=== PATIENT | male | born 1970 | race Caucasian/White ===

== ENCOUNTER 2021-06-26 18:58 | Inpatient (IN) | payer OTHER, SELFPAY ==
[2021-06-26 19:01] VITALS: BP 135/92; PULSE 118; RESP 18; TEMP 37.6; O2SAT 95; BMI 34.9
--- NOTE | 2021-06-26 19:16 | ED_ITS ---
HPI - Psych General Chief Complaint: Psychiatric Symptoms Stated Complaint: crisis Time Seen by Provider: 06/26/21 19:16 Source: patient Mode of arrival: ambulatory Limitations: no limitations History of Present Illness HPI Narrative: Patient came from home with increased depression and anxious denies any SI or HI taking his medication regularly has not seen a psychiatrist lately was seen in the community by LONNY advised inpatient psych admission Related Data Home Medications Medication Instructions Recorded Confirmed levothyroxine 125 mcg tablet 1 tab PO DAILY 06/26/21 06/26/21 lorazepam 2 mg tablet 1 tab PO TID PRN 06/26/21 06/26/21 methylphenidate HCl 10 mg tablet 1 tab PO BID 06/26/21 06/26/21 risperidone 2 mg tablet 1 tab PO BEDTIME 06/26/21 06/26/21 sertraline 25 mg tablet 1 tab PO DAILY 06/26/21 06/26/21 trazodone 50 mg tablet 1 tab PO BEDTIME 06/26/21 06/26/21 Allergies Allergy/AdvReac Type Severity Reaction Status Date / Time No Known Allergies Allergy Verified 06/26/21 19:01 Review of Systems Review of Systems: Yes all other systems are reviewed and are negative [facility] Past Medical History Medical History Anxiety Depression Social History Social History Advance Directives: No Physical Exam Vital Signs: Vital Signs: Last Vital Signs Temp 99.7 F 06/26/21 19:01 Pulse 118 H 06/26/21 19:01 Resp 18 06/26/21 19:01 BP 135/92 H 06/26/21 19:01 Pulse Ox 95 06/26/21 19:01 BMI result Body Mass Index 34.9 Appearance: Alert. Oriented X3. No acute distress. Eyes: PERRLA, No Nystagmus ENT: Pharynx normal. Oral Mucosa moist Neck: Normal inspection. Neck supple. CVS: Normal heart rate and rhythm. Pulses normal. Respiratory: No respiratory distress. Equal air entry bilateral, no wheezing/rales/rhonchi Abdomen: Soft and nontender. Bowel sounds are present, no mass palpable, no CVA tenderness Skin: Skin warm and dry. Normal skin color. Normal skin turgor. Extremities: No lower extremity edema. No calf tenderness Psych: Anxious feel depressed no hallucination or delusion judgment fair feels foggy Neuro: Oriented X 3. No motor deficit. No sensory deficit.No cerebellar signs , cranial nerves II-XII intact MDM - Psych Differential Diagnosis Differential diagnosis: Likely depression Lab Data Attestation: I reviewed the patient's lab results. Result diagrams: 06/26/21 19:47 06/26/21 19:47 Labs: Lab Results 06/26/21 06/26/21 06/26/21 Range/Units 19:24 19:39 19:39 WBC (4.8-10.8) X10*3/uL RBC (4.60-5.80) X10*6/uL Hgb (14.0-18.0) g/dl Hct (42.0-52.0) % MCV (80.0-98.0) fL MCH (27.0-33.0) pg MCHC (31.0-36.0) g/dl RDW (11.0-16.0) % Plt Count (160-400) X10*3/uL MPV (9.4-12.4) fL Immature Gran % (Auto) (0.0-0.4) % Neut % (Auto) (45-73) % Lymph % (Auto) (20-40) % [place] % (Auto) (2-11) % Eos % (Auto) (0-4) % Baso % (Auto) (0-2) % Lymph # (Auto) (1.2-4.9) X10*3/uL [place] # (Auto) (0.1-1.2) X10*3/uL Eos # (Auto) (0.0-0.4) X10*3/uL Baso # (Auto) (0.0-0.2) X10*3/uL Abs Immat Gran (auto) (0.00-0.03) X10*3/uL Absolute Neuts (auto) (2.0-8.3) x10*3/uL Absolute Nucleated RBC (0.0-0.012) X10*3/uL Nucleated RBC % (auto) (0.0-0.2) /100WBC Sodium (135-145) mmol/L Potassium (3.3-5.1) mmol/L Chloride (96-108) mmol/L Carbon Dioxide (22-29) mmol/L Anion Gap (12-20) BUN (9-16) mg/dL Creatinine (0.5-1.4) mg/dL Estim Creat Clear Calc Estimated GFR Random Glucose (60-115) mg/dL Calcium (8.4-10.2) mg/dL Urine Color YELLOW Urine Appearance HAZY Urine pH 6.0 (5.0-8.0) Ur Specific [place] 1.025 (1.005-1.025) Urine Protein TRACE (NEG-TRACE) MG/DL Urine Glucose (UA) NEG (NEG) MG/DL Urine Ketones NEG (NEG) MG/DL Urine Blood TRACE (NEG) Urine Nitrite NEG (NEG) Ur Leukocyte Esterase NEG (NEG) Urine RBC 1-4 (0) /HPF Urine WBC 0-2 (0-4) /HPF Ur Squamous Epith Cells TRACE /LPF Urine Bacteria NONE /LPF Hyaline Casts 0-2 /LPF Urine Mucus 4+ /LPF Urine Opiates Screen Not Detected (Not Detect) Urine Fentanyl Screen Not Detected (Not Detect) Ur Barbiturates Screen Not Detected (Not Detect) Ur Phencyclidine Scrn Not Detected (Not Detect) Ur Amphetamines Screen Not Detected (Not Detect) U Benzodiazepines Scrn Not Detected (Not Detect) Urine Cocaine Screen Not Detected (Not Detect) U Marijuana (THC) Screen Not Detected (Not Detect) Ethyl Alcohol mg/dL COVID-19 (BINTA) Negative (Negative) COVID-19 Clin Com See Note 06/26/21 06/26/21 06/26/21 Range/Units 19:47 19:47 19:48 WBC 9.9 (4.8-10.8) X10*3/uL RBC 5.58 (4.60-5.80) X10*6/uL Hgb 16.7 (14.0-18.0) g/dl Hct 47.4 (42.0-52.0) % MCV 84.9 (80.0-98.0) fL MCH 29.9 (27.0-33.0) pg MCHC 35.2 (31.0-36.0) g/dl RDW 12.3 (11.0-16.0) % Plt Count 272 (160-400) X10*3/uL MPV 10.6 (9.4-12.4) fL Immature Gran % (Auto) 0.8 H (0.0-0.4) % Neut % (Auto) 63.2 (45-73) % Lymph % (Auto) 24.6 (20-40) % [place] % (Auto) 9.6 (2-11) % Eos % (Auto) 1.3 (0-4) % Baso % (Auto) 0.5 (0-2) % Lymph # (Auto) 2.4 (1.2-4.9) X10*3/uL [place] # (Auto) 1.0 (0.1-1.2) X10*3/uL Eos # (Auto) 0.1 (0.0-0.4) X10*3/uL Baso # (Auto) 0.1 (0.0-0.2) X10*3/uL Abs Immat Gran (auto) 0.08 H (0.00-0.03) X10*3/uL Absolute Neuts (auto) 6.3 (2.0-8.3) x10*3/uL Absolute Nucleated RBC 0.000 (0.0-0.012) X10*3/uL Nucleated RBC % (auto) 0.0 (0.0-0.2) /100WBC Sodium 137 (135-145) mmol/L Potassium 4.2 (3.3-5.1) mmol/L Chloride 102 (96-108) mmol/L Carbon Dioxide 25 (22-29) mmol/L Anion Gap 14 (12-20) BUN 12 (9-16) mg/dL Creatinine 1.15 (0.5-1.4) mg/dL Estim Creat Clear Calc 87.9 Estimated GFR > 60 Random Glucose 132 H (60-115) mg/dL Calcium 10.7 H (8.4-10.2) mg/dL Urine Color Urine Appearance Urine pH (5.0-8.0) Ur Specific [place] (1.005-1.025) Urine Protein (NEG-TRACE) MG/DL Urine Glucose (UA) (NEG) MG/DL Urine Ketones (NEG) MG/DL Urine Blood (NEG) Urine Nitrite (NEG) Ur Leukocyte Esterase (NEG) Urine RBC (0) /HPF Urine WBC (0-4) /HPF Ur Squamous Epith Cells /LPF Urine Bacteria /LPF Hyaline Casts /LPF Urine Mucus /LPF Urine Opiates Screen (Not Detect) Urine Fentanyl Screen (Not Detect) Ur Barbiturates Screen (Not Detect) Ur Phencyclidine Scrn (Not Detect) Ur Amphetamines Screen (Not Detect) U Benzodiazepines Scrn (Not Detect) Urine Cocaine Screen (Not Detect) U Marijuana (THC) Screen (Not Detect) Ethyl Alcohol < 10 mg/dL COVID-19 (BINTA) (Negative) COVID-19 Clin Com Discharge Plan Discharge Clinical Impression: Depression, Acute anxiety Patient Disposition: Still a Patient Prescriptions: No Action methylphenidate HCl 10 mg tablet 1 tab PO BID 0RF risperidone 2 mg tablet 1 tab PO BEDTIME 0RF lorazepam 2 mg tablet 1 tab PO TID PRN (Reason: anxiety) 0RF levothyroxine 125 mcg tablet 1 tab PO DAILY 0RF sertraline 25 mg tablet 1 tab PO DAILY 0RF trazodone 50 mg tablet 1 tab PO BEDTIME 0RF
--- NOTE | 2021-06-26 19:19 | MHC.CARE ---
Pt was evaluated by N in the community prior to arrival to the hospital and is a voluntary in psychiatric bedsearch.
[2021-06-26 19:44] LABS: COVID-19 Test Negative (Negative)
[2021-06-26 19:53] LABS: MANUAL DIFF FLAG NO
[2021-06-26 19:55] LABS: Basophils Absolute Auto 0.1 X10*3/uL (0.0-0.2); Basophils Percent Auto 0.5 % (0-2); Eosinophils Absolute Auto 0.1 X10*3/uL (0.0-0.4); Eosinophils Percent Auto 1.3 % (0-4); Hematocrit 47.4 % (42.0-52.0); Hemoglobin 16.7 g/dl (14.0-18.0); Imm Gran Abs Auto 0.08 X10*3/uL (0.00-0.03); Imm Gran Pct Auto 0.8 % (0.0-0.4); Lymphocytes Absolute Auto 2.4 X10*3/uL (1.2-4.9); Lymphocytes Percent Auto 24.6 % (20-40); Mean Corpuscular HGB Conc 35.2 g/dl (31.0-36.0); Mean Corpuscular Hemoglobin 29.9 pg (27.0-33.0); Mean Corpuscular Volume 84.9 fL (80.0-98.0); Mean Platelet Volume 10.6 fL (9.4-12.4); Monocytes Percent Auto 9.6 % (2-11); Neutrophils Absolute Auto 6.3 x10*3/uL (2.0-8.3); Neutrophils Percent Auto 63.2 % (45-73); Platelet Count 272 X10*3/uL (160-400); Red Blood Count 5.58 X10*6/uL (4.60-5.80); Red Cell Distribution Width 12.3 % (11.0-16.0); White Blood Count 9.9 X10*3/uL (4.8-10.8)
[2021-06-26 19:56] LABS: Appearance Urine HAZY; Color Urine YELLOW; Glucose Urine UA NEG (NEG); Leukocyte Esterase Urine NEG (NEG); Nitrite Urine NEG (NEG); Specific Gravity - Urine 1.025 (1.005-1.025); Urine Blood TRACE (NEG); Urine Ketones NEG (NEG); Urine Protein TRACE MG/DL (NEG-TRACE)
[2021-06-26 20:06] LABS: Ethanol < 10 mg/dL
[2021-06-26 20:09] LABS: Amphetamine Screen Urine Not Detected (Not Detect); Barbiturates, Urine Not Detected (Not Detect); Benzodiazepines Screen Urine Not Detected (Not Detect); Cannabinoid Screen Urine Not Detected (Not Detect); Cocaine Screen Urine Not Detected (Not Detect); Fentanyl, urine Not Detected (Not Detect); Opiate Screen Urine Not Detected (Not Detect); Phencyclidine Screen Urine Not Detected (Not Detect)
[2021-06-26 20:19] LABS: Hyaline Casts Urine 0-2 /LPF; Mucus Urine 4+ /LPF; Squamous Epithelial Cell Urine TRACE /LPF; WBC Urine 0-2 /HPF (0-4)
[2021-06-26 20:26] LABS: Anion Gap 14 (12-20); Blood Urea Nitrogen 12 mg/dL (9-16); Calcium 10.7 mg/dL (8.4-10.2); Carbon Dioxide 25 mmol/L (22-29); Chloride 102 mmol/L (96-108); Creatinine Clr Calc Pharmacy 87.9; Estimated Glomerular Filt Rate > 60; Glucose Random 132 mg/dL (60-115); Potassium 4.2 mmol/L (3.3-5.1); Sodium 137 mmol/L (135-145)
[2021-06-26] MEDS: risperiDONE 2 MG TABLET PO (21:59)
[2021-06-26] MEDS: traZODone HCL 50 MG TABLET PO (22:19)
--- NOTE | 2021-06-27 | ECG_ITS ---
Test Reason : MEDICAL CLEARANCE Blood Pressure : / mmHG Vent. Rate : 087 BPM Atrial Rate : 087 BPM P-R Int : 168 ms QRS Dur : 076 ms QT Int : 344 ms P-R-T Axes : 040 054 046 degrees QTc Int : 413 ms Normal sinus rhythm Normal ECG When compared with ECG of 20-JUL-2019 08:33, Nonspecific T wave abnormality now evident in Anterior leads Referred By: Cecilia Whitt Electronically Signed By:Radu Mitchell
[2021-06-27 03:32] VITALS: BP 140/100; PULSE 116; RESP 20; TEMP 36.3; O2SAT 95
[2021-06-27] MEDS: Levothyroxine Sodium 125 MCG TABLET PO (06:04)
[2021-06-27] MEDS: LORazepam 1 MG TABLET 2 MG PO ×3 (06:05→20:47)
--- NOTE | 2021-06-27 06:57 | PC.NURSE ---
Patient slept through the night, no distress observed/reported, behavior quiet, non concerning, medication compliant, disposition per [facility] is voluntary Bed Search, will continue to monitor.
--- NOTE | 2021-06-27 07:14 | PC.NURSE ---
patient appears to remain asleep respirations are even and unlabored, patient appears in no distress
[2021-06-27] MEDS: Sertraline HCL 25 MG TABLET PO (08:05)
[2021-06-27] MEDS: Methylphenidate HCl 10 MG TABLET PO ×2 (08:05→13:37)
[2021-06-27 08:44] VITALS: BP 147/87; PULSE 117; TEMP 37.2; O2SAT 95
[2021-06-27] MEDS: hydrOXYzine HCL 50 MG TABLET PO (09:55)
[2021-06-27 19:24] VITALS: BP 127/84; PULSE 111; RESP 18; TEMP 36.2; O2SAT 94
[2021-06-27 19:35] VITALS: BP 121/80; PULSE 115; RESP 16; TEMP 36.7; O2SAT 94
[2021-06-27] MEDS: risperiDONE 2 MG TABLET PO (20:46)
[2021-06-27] MEDS: traZODone HCL 50 MG TABLET PO (20:46)
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
[2021-06-28] MEDS: Levothyroxine Sodium 125 MCG TABLET PO (06:36)
[2021-06-28 08:13] VITALS: BP 138/93; PULSE 92; RESP 17; TEMP 36.8; O2SAT 94
[2021-06-28 09:02] LABS: Alanine Aminotransferase 20 U/L (0-40); Albumin Level 4.3 g/dL (3.5-5.0); Alkaline Phosphatase 66 U/L (39-117); Anion Gap 13 (12-20); Aspartate Amino Transferase 17 U/L (5-37); Bilirubin Total 0.6 mg/dL (0.0-1.0); Blood Urea Nitrogen 11 mg/dL (9-16); Carbon Dioxide 26 mmol/L (22-29); Chloride 103 mmol/L (96-108); Cholesterol 208 mg/dL; Creatinine Clr Calc Pharmacy 92.8; Estimated Glomerular Filt Rate > 60; Glucose Fasting 117 mg/dL (60-99); HDL Cholesterol 34 mg/dL; LDL Cholesterol Calculated 140 mg/dl; Potassium 4.4 mmol/L (3.3-5.1); Sodium 138 mmol/L (135-145); Total Protein 6.7 g/dL (6.5-8.0); Triglycerides 173 mg/dL
[2021-06-28 09:11] LABS: Estimated Average Glucose 123 mg/dL; Hemoglobin A1c % 5.9 %
[2021-06-28 09:23] LABS: Thyroid Stimulating Hormone 0.86 uIU/mL (0.32-4.0)
[2021-06-28 09:34] LABS: Folate 14.3 ng/mL (> or = 4.0); Vitamin B12 252 pg/mL (200-900)
[2021-06-28 09:49] LABS: Calcium 9.7 mg/dL (8.4-10.2)
[2021-06-28] MEDS: Sertraline HCL 25 MG TABLET PO (10:45)
[2021-06-28] MEDS: Methylphenidate HCl 10 MG TABLET PO ×2 (10:45→14:04)
[2021-06-28] MEDS: LORazepam 1 MG TABLET 2 MG PO (10:48)
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
[2021-06-28] MEDS: Venlafaxine HCl ER 37.5 MG CAP.ER.24H PO (16:02)
[2021-06-28 20:06] VITALS: BP 125/76; PULSE 105; RESP 18; TEMP 36.2; O2SAT 95
[2021-06-28] MEDS: traZODone HCL 50 MG TABLET PO (20:33)
[2021-06-28] MEDS: risperiDONE 2 MG TABLET PO (20:33)
[2021-06-28] MEDS: LORazepam 1 MG TABLET PO (20:33)
[2021-06-29] MEDS: Levothyroxine Sodium 125 MCG TABLET PO (06:40)
[2021-06-29 08:04] VITALS: BP 141/80; PULSE 84; RESP 16; TEMP 36.5; O2SAT 93
[2021-06-29] MEDS: LORazepam 1 MG TABLET PO ×3 (08:06→20:30)
[2021-06-29] MEDS: Venlafaxine HCl ER 37.5 MG CAP.ER.24H PO (08:06)
[2021-06-29 11:19] VITALS: BMI 33.5
--- NOTE | 2021-06-29 12:55 | HO.PSYCHPN ---
Subjective Subjective Date of Service: 06/29/21 Reason For Visit: SI Subjective Notes: Conditional Voluntary Interim History: Pt reports feeling hopeless, numbed, anxious. Continues to report feeling inside. He reports he can't go to groups as he is too anxious. He reports passive SI but denies any plan or intent to hurt himself. He denies VH/AH. He is so far tolerating decrease on ativan. no withdrawal symptoms. Pt encouraged to attend some groups. He reports poor appetite. Medication Compliance: Yes Side effects from medications: No Attending Groups: No Review of Systems Review of Systems Yes all other systems are reviewed and are negative Constitutional: Reports difficulty sleeping Eyes: Reports no additional eye complaints Cardiovascular: Denies chest pain, Denies chest pain at rest, Denies rapid heart rate, Denies lightheadedness and Denies dyspnea Respiratory: Denies cough and Denies dyspnea Gastrointestinal: Denies constipation, Denies GI cramping and Denies diarrhea Genitourinary: Reports change in libido Psychiatric: Reports change in libido Endocrine: Reports change in libido Mental Status Exam Mental Status Exam Narrative: Appearance: casually groomed, fair hygiene in NAD Behavior:cooperative psychomotor:no overt retardation or agitation noted Speech:clear, normal rate/rhythm/volume, spontaneous Thought process: repetitive at times, mostly linear Thought content:no signs of psychosis, hopeless/helpless/severe anhedonia. Mood: numbed Affect: blunted SI:passive HI:none VH/AH:none Delusions:none Insight/judgment:fair x 2. Memory/cog: alert, oriented x 3. not formally tested. Diagnostics Vital Signs (24Hr): Vital Signs - 24 hr 07/02/21 07:55 07/02/21 20:23 Temperature 97.2 F 97.5 F Pulse Rate 72 100 Respiratory Rate 18 18 Blood Pressure 140/97 H 113/63 Pulse Oximetry 93 95 BMI result Body Mass Index 33.5 Labs Results: 06/26/21 19:47 06/28/21 08:19 Medications Medications Current Medications Acetaminophen (Acetaminophen 325 Mg Tablet) 650 mg PO Q6H PRN PRN Reason: Headache/Pain Mild Scale (1-3) Al Hydroxide/Mg Hydroxide (Magnesium Hydrox/Alum Hydrox 30 Ml Oral.Susp) 30 ml PO Q6H PRN PRN Reason: Heartburn/Nausea Hydroxyzine HCl (Hydroxyzine Hcl 25 Mg Tablet) 25 mg PO Q6H PRN PRN Reason: Anxiety Last Admin: 07/01/21 20:03 Dose: 25 mg Documented by: Levothyroxine Sodium (Levothyroxine Sodium 125 Mcg Tablet) 125 mcg PO DAILY@0600 [facility] Last Admin: 07/02/21 08:07 Dose: 125 mcg Documented by: Lorazepam (Lorazepam 1 Mg Tablet) 1 mg PO TID [facility] Last Admin: 07/02/21 20:20 Dose: 1 mg Documented by: Magnesium Hydroxide (Milk Of Magnesia 30 Ml Oral.Susp) 30 ml PO DAILY PRN PRN Reason: Constipation Propranolol HCl (Propranolol Hcl 10 Mg Tablet) 10 mg PO BID [facility]; Protocol Last Admin: 07/02/21 20:21 Dose: 10 mg Documented by: Risperidone (Risperidone 2 Mg Tablet) 2 mg PO BEDTIME [facility] Last Admin: 07/02/21 20:20 Dose: 2 mg Documented by: Trazodone HCl (Trazodone Hcl 50 Mg Tablet) 50 mg PO BEDTIME PRN PRN Reason: Insomnia Trazodone HCl (Trazodone Hcl 100 Mg Tablet) 100 mg PO BEDTIME [facility] Last Admin: 07/02/21 20:20 Dose: 100 mg Documented by: Venlafaxine HCl (Venlafaxine Hcl Er 75 Mg Cap.Er.24h) 75 mg PO DAILY [facility] Last Admin: 07/02/21 08:06 Dose: 75 mg Documented by: Allergies Allergies Allergy/AdvReac Type Severity Reaction Status Date / Time No Known Allergies Allergy Verified 06/26/21 19:01 Assessment & Plan Assessment & Plan (1) Bipolar 1 disorder, depressed, moderate: Status: Acute Code(s): F31.32 - Bipolar disorder, current episode depressed, moderate Assessment and Plan: Mr. Tomas is a 50 year-old male with hx of Bipolar Disorder type 1 admitted due to feeling of numbness, depressed mood, anhedonia, anxious mood. He has hx of ECT. He reports feeling this way for about 2 years, worsening in last few months. Pt reports being on same regimen for about two years including ativan 2mg po TID, ritalin 10mg po BID, sertraline 25mg po qhs, risperidone 2mg po qhs. We discussed risks, benefits and alternative treatment options. PLAN 1. Admit to M3, 15 mins check safety 2. Decrease ativan to 1mg po TID, d/c sertraline (won't increase dose as higher doses can cause emotional blunting), start effexor 37.5mg po daily. Will keep risperidone and ritaline for now. May consider ECT again 3. Obtain collateral information 4. Aftercare planning. I spent minutes with the patient and/or on the patient floor today, greater than?50% of which was spent counseling/coordinating care. Reason for contiued inpatient stay Substantial Risk for: harm to self and inability to function
[2021-06-29] MEDS: traZODone HCL 50 MG TABLET PO (20:30)
[2021-06-29] MEDS: risperiDONE 2 MG TABLET PO (20:30)
[2021-06-29 20:31] VITALS: BP 136/87; PULSE 92; RESP 17; TEMP 36.4; O2SAT 95
[2021-06-30] MEDS: Levothyroxine Sodium 125 MCG TABLET PO (06:39)
[2021-06-30] MEDS: LORazepam 1 MG TABLET PO ×3 (08:22→20:09)
[2021-06-30] MEDS: Venlafaxine HCl ER 75 MG CAP.ER.24H PO (08:22)
[2021-06-30] MEDS: hydrOXYzine HCL 25 MG TABLET PO (08:28)
[2021-06-30 08:33] VITALS: BP 147/93; PULSE 88; RESP 16; TEMP 36.2; O2SAT 99
--- NOTE | 2021-06-30 15:58 | P.PNPSI_ITS ---
Subjective Subjective Date of Service: 06/30/21 Reason For Visit: SI Subjective Notes: Conditional Voluntary Interim History: Pt reports no change in mood: feeling hopeless, numbed, anxious, poor concentration. Continues to report feeling inside. He reports he can't go to groups as he is too anxious. He reports passive SI but denies any plan or intent to hurt himself. He denies VH/AH. He is so far tolerating decrease on ativan. no withdrawal symptoms. Pt encouraged to attend some groups. He reports poor appetite. We discussed increasing venlafaxine to 75mg po daily. Medication Compliance: Yes Side effects from medications: No Review of Systems Review of Systems Yes all other systems are reviewed and are negative Constitutional: Reports difficulty sleeping Eyes: Reports no additional eye complaints Cardiovascular: Denies chest pain, Denies chest pain at rest, Denies rapid heart rate, Denies lightheadedness and Denies dyspnea Respiratory: Denies cough and Denies dyspnea Gastrointestinal: Denies constipation, Denies GI cramping and Denies diarrhea Genitourinary: Reports change in libido Psychiatric: Reports change in libido Endocrine: Reports change in libido Mental Status Exam Mental Status Exam Narrative: Appearance: casually groomed, fair hygiene in NAD Behavior:cooperative psychomotor:no overt retardation or agitation noted Speech:clear, normal rate/rhythm/volume, spontaneous Thought process: repetitive at times, mostly linear Thought content:no signs of psychosis, hopeless/helpless/severe anhedonia. Mood: numbed Affect: blunted SI:passive HI:none VH/AH:none Delusions:none Insight/judgment:fair x 2. Memory/cog: alert, oriented x 3. not formally tested. Diagnostics Vital Signs (24Hr): Vital Signs - 24 hr 07/02/21 07:55 07/02/21 20:23 Temperature 97.2 F 97.5 F Pulse Rate 72 100 Respiratory Rate 18 18 Blood Pressure 140/97 H 113/63 Pulse Oximetry 93 95 BMI result Body Mass Index 33.5 Labs Results: 06/26/21 19:47 06/28/21 08:19 Medications Medications Current Medications Acetaminophen (Acetaminophen 325 Mg Tablet) 650 mg PO Q6H PRN PRN Reason: Headache/Pain Mild Scale (1-3) Al Hydroxide/Mg Hydroxide (Magnesium Hydrox/Alum Hydrox 30 Ml Oral.Susp) 30 ml PO Q6H PRN PRN Reason: Heartburn/Nausea Hydroxyzine HCl (Hydroxyzine Hcl 25 Mg Tablet) 25 mg PO Q6H PRN PRN Reason: Anxiety Last Admin: 07/01/21 20:03 Dose: 25 mg Documented by: Levothyroxine Sodium (Levothyroxine Sodium 125 Mcg Tablet) 125 mcg PO DAILY@0600 [facility] Last Admin: 07/02/21 08:07 Dose: 125 mcg Documented by: Lorazepam (Lorazepam 1 Mg Tablet) 1 mg PO TID [facility] Last Admin: 07/02/21 20:20 Dose: 1 mg Documented by: Magnesium Hydroxide (Milk Of Magnesia 30 Ml Oral.Susp) 30 ml PO DAILY PRN PRN Reason: Constipation Propranolol HCl (Propranolol Hcl 10 Mg Tablet) 10 mg PO BID [facility]; Protocol Last Admin: 07/02/21 20:21 Dose: 10 mg Documented by: Risperidone (Risperidone 2 Mg Tablet) 2 mg PO BEDTIME [facility] Last Admin: 07/02/21 20:20 Dose: 2 mg Documented by: Trazodone HCl (Trazodone Hcl 50 Mg Tablet) 50 mg PO BEDTIME PRN PRN Reason: Insomnia Trazodone HCl (Trazodone Hcl 100 Mg Tablet) 100 mg PO BEDTIME [facility] Last Admin: 07/02/21 20:20 Dose: 100 mg Documented by: Venlafaxine HCl (Venlafaxine Hcl Er 75 Mg Cap.Er.24h) 75 mg PO DAILY [facility] Last Admin: 07/02/21 08:06 Dose: 75 mg Documented by: Allergies Allergies Allergy/AdvReac Type Severity Reaction Status Date / Time No Known Allergies Allergy Verified 06/26/21 19:01 Assessment & Plan Assessment & Plan (1) Bipolar 1 disorder, depressed, moderate: Status: Acute Code(s): F31.32 - Bipolar disorder, current episode depressed, moderate Assessment and Plan: Mr. Tomas is a 50 year-old male with hx of Bipolar Disorder type 1 admitted due to feeling of numbness, depressed mood, anhedonia, anxious mood. He has hx of ECT. He reports feeling this way for about 2 years, worsening in last few months. Pt reports being on same regimen for about two years including ativan 2mg po TID, ritalin 10mg po BID, sertraline 25mg po qhs, risperidone 2mg po qhs. We discussed risks, benefits and alternative treatment options. PLAN 1. Admit to M3, 15 mins check safety 2. Decrease ativan to 1mg po TID, d/c sertraline (won't increase dose as higher doses can cause emotional blunting), increase effexor 75mg po daily. Will keep risperidone and d/c ritalin for now. May consider ECT again 3. Obtain collateral information 4. Aftercare planning. I spent minutes with the patient and/or on the patient floor today, greater than?50% of which was spent counseling/coordinating care. Reason for contiued inpatient stay Substantial Risk for: harm to self and inability to function
[2021-06-30 18:00] VITALS: BP 131/87; PULSE 107; RESP 18; TEMP 36.1; O2SAT 93
[2021-06-30] MEDS: traZODone HCL 100 MG TABLET PO (20:09)
[2021-06-30] MEDS: risperiDONE 2 MG TABLET PO (20:09)
[2021-07-01] MEDS: LORazepam 1 MG TABLET PO ×3 (08:22→20:03)
[2021-07-01] MEDS: Venlafaxine HCl ER 75 MG CAP.ER.24H PO (08:23)
[2021-07-01] MEDS: Levothyroxine Sodium 125 MCG TABLET PO (08:23)
[2021-07-01 08:58] VITALS: BP 141/94; PULSE 89; RESP 18; TEMP 36.6; O2SAT 93
--- NOTE | 2021-07-01 08:59 | HO.PSYCHPN ---
Subjective Subjective Date of Service: 07/01/21 Reason For Visit: SI Subjective Notes: Conditional Voluntary Interim History: Pt reports feeling anxious, not sure if more than before or the same. He reports feeling need to pace, not able to stay in groups. He continues to report feeling hopeless, numbed, poor concentration. Continues to report feeling inside. He reports he can't go to groups as he is too anxious. He reports passive SI but denies any plan or intent to hurt himself. He denies VH/AH. He is so far tolerating decrease on ativan. no withdrawal symptoms. Pt encouraged to attend some groups. He reports poor appetite. We discussed adding propanolol for anxious mood. Review of Systems Review of Systems Yes all other systems are reviewed and are negative Constitutional: Reports difficulty sleeping Eyes: Reports no additional eye complaints Cardiovascular: Denies chest pain, Denies chest pain at rest, Denies rapid heart rate, Denies lightheadedness and Denies dyspnea Respiratory: Denies cough and Denies dyspnea Gastrointestinal: Denies constipation, Denies GI cramping and Denies diarrhea Genitourinary: Reports change in libido Psychiatric: Reports change in libido Endocrine: Reports change in libido Mental Status Exam Mental Status Exam Narrative: Appearance: casually groomed, fair hygiene in NAD Behavior:cooperative psychomotor:no overt retardation or agitation noted Speech:clear, normal rate/rhythm/volume, spontaneous Thought process: repetitive at times, mostly linear Thought content:no signs of psychosis, hopeless/helpless/severe anhedonia. Mood: numbed Affect: blunted SI:passive HI:none VH/AH:none Delusions:none Insight/judgment:fair x 2. Memory/cog: alert, oriented x 3. not formally tested. Diagnostics Vital Signs (24Hr): Vital Signs - 24 hr 07/02/21 07:55 07/02/21 20:23 Temperature 97.2 F 97.5 F Pulse Rate 72 100 Respiratory Rate 18 18 Blood Pressure 140/97 H 113/63 Pulse Oximetry 93 95 BMI result Body Mass Index 33.5 Labs Results: 06/26/21 19:47 06/28/21 08:19 Medications Medications Current Medications Acetaminophen (Acetaminophen 325 Mg Tablet) 650 mg PO Q6H PRN PRN Reason: Headache/Pain Mild Scale (1-3) Al Hydroxide/Mg Hydroxide (Magnesium Hydrox/Alum Hydrox 30 Ml Oral.Susp) 30 ml PO Q6H PRN PRN Reason: Heartburn/Nausea Hydroxyzine HCl (Hydroxyzine Hcl 25 Mg Tablet) 25 mg PO Q6H PRN PRN Reason: Anxiety Last Admin: 07/01/21 20:03 Dose: 25 mg Documented by: Levothyroxine Sodium (Levothyroxine Sodium 125 Mcg Tablet) 125 mcg PO DAILY@0600 [facility] Last Admin: 07/02/21 08:07 Dose: 125 mcg Documented by: Lorazepam (Lorazepam 1 Mg Tablet) 1 mg PO TID [facility] Last Admin: 07/02/21 20:20 Dose: 1 mg Documented by: Magnesium Hydroxide (Milk Of Magnesia 30 Ml Oral.Susp) 30 ml PO DAILY PRN PRN Reason: Constipation Propranolol HCl (Propranolol Hcl 10 Mg Tablet) 10 mg PO BID [facility]; Protocol Last Admin: 07/02/21 20:21 Dose: 10 mg Documented by: Risperidone (Risperidone 2 Mg Tablet) 2 mg PO BEDTIME [facility] Last Admin: 07/02/21 20:20 Dose: 2 mg Documented by: Trazodone HCl (Trazodone Hcl 50 Mg Tablet) 50 mg PO BEDTIME PRN PRN Reason: Insomnia Trazodone HCl (Trazodone Hcl 100 Mg Tablet) 100 mg PO BEDTIME [facility] Last Admin: 07/02/21 20:20 Dose: 100 mg Documented by: Venlafaxine HCl (Venlafaxine Hcl Er 75 Mg Cap.Er.24h) 75 mg PO DAILY [facility] Last Admin: 07/02/21 08:06 Dose: 75 mg Documented by: Allergies Allergies Allergy/AdvReac Type Severity Reaction Status Date / Time No Known Allergies Allergy Verified 06/26/21 19:01 Assessment & Plan Assessment & Plan (1) Bipolar 1 disorder, depressed, moderate: Status: Acute Code(s): F31.32 - Bipolar disorder, current episode depressed, moderate Assessment and Plan: Mr. Tomas is a 50 year-old male with hx of Bipolar Disorder type 1 admitted due to feeling of numbness, depressed mood, anhedonia, anxious mood. He has hx of ECT. He reports feeling this way for about 2 years, worsening in last few months. Pt reports being on same regimen for about two years including ativan 2mg po TID, ritalin 10mg po BID, sertraline 25mg po qhs, risperidone 2mg po qhs. We discussed risks, benefits and alternative treatment options. PLAN 1. Admit to M3, 15 mins check safety 2. Decrease ativan to 1mg po TID, d/c sertraline (won't increase dose as higher doses can cause emotional blunting), increase effexor 75mg po daily. Will keep risperidone and d/c ritalin for now. start propanolol 10mg po BID for anxiety. May consider ECT again 3. Obtain collateral information 4. Aftercare planning. I spent minutes with the patient and/or on the patient floor today, greater than?50% of which was spent counseling/coordinating care. Reason for contiued inpatient stay Substantial Risk for: harm to self and inability to function
[2021-07-01] MEDS: Propranolol HCL 10 MG TABLET PO ×2 (11:12→20:03)
[2021-07-01] MEDS: hydrOXYzine HCL 25 MG TABLET PO ×2 (12:31→20:03)
[2021-07-01 12:36] VITALS: BP 131/83; PULSE 128; RESP 18; O2SAT 95
[2021-07-01 12:38] VITALS: BP 127/84; PULSE 88; RESP 20; O2SAT 95
[2021-07-01 20:00] VITALS: BP 123/82; PULSE 90; RESP 18; TEMP 36.7; O2SAT 94
[2021-07-01] MEDS: traZODone HCL 100 MG TABLET PO (20:03)
[2021-07-01] MEDS: risperiDONE 2 MG TABLET PO (20:03)
[2021-07-02 07:55] VITALS: BP 140/97; PULSE 72; RESP 18; TEMP 36.2; O2SAT 93
[2021-07-02] MEDS: LORazepam 1 MG TABLET PO ×3 (08:06→20:20)
[2021-07-02] MEDS: Venlafaxine HCl ER 75 MG CAP.ER.24H PO (08:06)
[2021-07-02] MEDS: Levothyroxine Sodium 125 MCG TABLET PO (08:07)
[2021-07-02] MEDS: Propranolol HCL 10 MG TABLET PO ×2 (08:07→20:21)
--- NOTE | 2021-07-02 10:02 | HO.PSYCHPN ---
Subjective Subjective Date of Service: 07/02/21 Reason For Visit: SI Subjective Notes: Conditional Voluntary Interim History: Pt reports feeling anxious, not change with propanolol. He continues to report feeling hopeless, numbed, poor concentration. Continues to report feeling inside. He did smile- brighten up a bit- at some point when talking about adding or considering lithium- he reports it worked well for his father but he had GI side effects. He reports he can't go to groups as he is too anxious. He reports passive SI but denies any plan or intent to hurt himself. He denies VH/AH. He is so far tolerating decrease on ativan. no withdrawal symptoms. Pt encouraged to attend some groups. He reports poor appetite. We discussed adding propanolol for anxious mood. Medication Compliance: Yes Side effects from medications: No Review of Systems Review of Systems Yes all other systems are reviewed and are negative Constitutional: Reports difficulty sleeping Eyes: Reports no additional eye complaints Cardiovascular: Denies chest pain, Denies chest pain at rest, Denies rapid heart rate, Denies lightheadedness and Denies dyspnea Respiratory: Denies cough and Denies dyspnea Gastrointestinal: Denies constipation, Denies GI cramping and Denies diarrhea Genitourinary: Reports change in libido Psychiatric: Reports change in libido Endocrine: Reports change in libido Mental Status Exam Mental Status Exam Narrative: Appearance: casually groomed, fair hygiene in NAD Behavior:cooperative psychomotor:no overt retardation or agitation noted Speech:clear, normal rate/rhythm/volume, spontaneous Thought process: repetitive at times, mostly linear Thought content:no signs of psychosis, hopeless/helpless/severe anhedonia. Mood: numbed Affect: blunted SI:passive HI:none VH/AH:none Delusions:none Insight/judgment:fair x 2. Memory/cog: alert, oriented x 3. not formally tested. Diagnostics Vital Signs (24Hr): Vital Signs - 24 hr 07/02/21 07:55 07/02/21 20:23 Temperature 97.2 F 97.5 F Pulse Rate 72 100 Respiratory Rate 18 18 Blood Pressure 140/97 H 113/63 Pulse Oximetry 93 95 BMI result Body Mass Index 33.5 Labs Results: 06/26/21 19:47 06/28/21 08:19 Medications Medications Current Medications Acetaminophen (Acetaminophen 325 Mg Tablet) 650 mg PO Q6H PRN PRN Reason: Headache/Pain Mild Scale (1-3) Al Hydroxide/Mg Hydroxide (Magnesium Hydrox/Alum Hydrox 30 Ml Oral.Susp) 30 ml PO Q6H PRN PRN Reason: Heartburn/Nausea Hydroxyzine HCl (Hydroxyzine Hcl 25 Mg Tablet) 25 mg PO Q6H PRN PRN Reason: Anxiety Last Admin: 07/01/21 20:03 Dose: 25 mg Documented by: Levothyroxine Sodium (Levothyroxine Sodium 125 Mcg Tablet) 125 mcg PO DAILY@0600 [facility] Last Admin: 07/02/21 08:07 Dose: 125 mcg Documented by: Lorazepam (Lorazepam 1 Mg Tablet) 1 mg PO TID [facility] Last Admin: 07/02/21 20:20 Dose: 1 mg Documented by: Magnesium Hydroxide (Milk Of Magnesia 30 Ml Oral.Susp) 30 ml PO DAILY PRN PRN Reason: Constipation Propranolol HCl (Propranolol Hcl 10 Mg Tablet) 10 mg PO BID [facility]; Protocol Last Admin: 07/02/21 20:21 Dose: 10 mg Documented by: Risperidone (Risperidone 2 Mg Tablet) 2 mg PO BEDTIME [facility] Last Admin: 07/02/21 20:20 Dose: 2 mg Documented by: Trazodone HCl (Trazodone Hcl 50 Mg Tablet) 50 mg PO BEDTIME PRN PRN Reason: Insomnia Trazodone HCl (Trazodone Hcl 100 Mg Tablet) 100 mg PO BEDTIME [facility] Last Admin: 07/02/21 20:20 Dose: 100 mg Documented by: Venlafaxine HCl (Venlafaxine Hcl Er 75 Mg Cap.Er.24h) 75 mg PO DAILY [facility] Last Admin: 07/02/21 08:06 Dose: 75 mg Documented by: Allergies Allergies Allergy/AdvReac Type Severity Reaction Status Date / Time No Known Allergies Allergy Verified 06/26/21 19:01 Assessment & Plan Assessment & Plan (1) Bipolar 1 disorder, depressed, moderate: Status: Acute Code(s): F31.32 - Bipolar disorder, current episode depressed, moderate Assessment and Plan: Mr. Tomas is a 50 year-old male with hx of Bipolar Disorder type 1 admitted due to feeling of numbness, depressed mood, anhedonia, anxious mood. He has hx of ECT. He reports feeling this way for about 2 years, worsening in last few months. Pt reports being on same regimen for about two years including ativan 2mg po TID, ritalin 10mg po BID, sertraline 25mg po qhs, risperidone 2mg po qhs. We discussed risks, benefits and alternative treatment options. PLAN 1. Admit to M3, 15 mins check safety 2. Decrease ativan to 1mg po TID, d/c sertraline (won't increase dose as higher doses can cause emotional blunting), increase effexor 75mg po daily. Will keep risperidone and d/c ritalin for now. start propanolol 10mg po BID for anxiety. May consider ECT again 3. Obtain collateral information 4. Aftercare planning. I spent minutes with the patient and/or on the patient floor today, greater than?50% of which was spent counseling/coordinating care. Reason for contiued inpatient stay Substantial Risk for: inability to function
[2021-07-02] MEDS: risperiDONE 2 MG TABLET PO (20:20)
[2021-07-02] MEDS: traZODone HCL 100 MG TABLET PO (20:20)
[2021-07-02 20:23] VITALS: BP 113/63; PULSE 100; RESP 18; TEMP 36.4; O2SAT 95
[2021-07-03 06:00] VITALS: BP 150/89; PULSE 84; RESP 16; O2SAT 94
[2021-07-03] MEDS: Levothyroxine Sodium 125 MCG TABLET PO (06:42)
[2021-07-03] MEDS: Propranolol HCL 10 MG TABLET PO ×2 (08:28→20:18)
[2021-07-03] MEDS: Venlafaxine HCl ER 75 MG CAP.ER.24H PO (08:28)
[2021-07-03] MEDS: LORazepam 1 MG TABLET PO ×3 (08:29→20:18)
[2021-07-03 18:00] VITALS: BP 112/74; PULSE 101; RESP 16; TEMP 36.4; O2SAT 93
--- NOTE | 2021-07-03 18:11 | HO.PHPPROGNO ---
Subjective Subjective Date of Service: 07/03/21 Reason For Visit: SI Interim History: I evaluated the pt this evening and upon interview he reports he is not really any better and that his mind is blank. Pt asked about trialing lithium, will defer to primary provider. Says he tried to participate in two groups, however found this so hard to concentrate. Sleep is not enough, even when I take the night meds, says he will toss and turn, wakes up at 5am. Energy is not good, feels like he is dying from the inside out. Says he is eating despite having no appetite, food is not enjoyable, i'm not tasting food. Pt is showering. Says due to his sx of depression it is tough getting through the day, unable to watch tv or read due to lack of concentration. Denies benefit on propranolol for anxiety. Says ECT helped in the past, wants to discuss this with primary provider. Denies SI, feels safe here. Medication Compliance: Yes Side effects from medications: No Attending Groups: No Review of Systems Acute medical concerns: No Medical Review of Systems: unchanged Mental Status Exam Mental Status Exam Narrative: Appearance: casually groomed, fair hygiene in NAD Behavior:cooperative psychomotor:no overt retardation or agitation noted Speech:clear, normal rate/rhythm/volume, spontaneous Thought process: repetitive at times, mostly linear Thought content:no signs of psychosis, hopeless/helpless/severe anhedonia. Mood: depressed Affect: blunted SI:passive HI:none VH/AH:none Delusions:none Insight/judgment:fair x 2. Memory/cog: alert, oriented x 3. not formally tested. Diagnostics Vital Signs (24Hr): Vital Signs - 24 hr 07/02/21 20:23 07/03/21 06:00 Temperature 97.5 F Pulse Rate 100 84 Respiratory Rate 18 16 Blood Pressure 113/63 150/89 H Pulse Oximetry 95 94 BMI result Body Mass Index 33.5 Labs Results: 06/26/21 19:47 06/28/21 08:19 Assessment & Plan Certification I certify that partial hospital treatment is medically necessary due to the symptoms and problems resulting from the patient's mental illness and the failure to treat the patient at the partial hospital level of care would likely result in the patient requiring inpatient psychiatric care which could not be prevented at a less intensive level of care. I spent minutes with the patient and/or on the patient floor today, greater than?50% of which was spent counseling/coordinating care. Discharge Plan Discharge Referrals: Dimitry Hugo MD [Physician] - 1 Week Discharge Medications: No Action methylphenidate HCl 10 mg tablet 1 tab PO BID 0RF risperidone 2 mg tablet 1 tab PO BEDTIME 0RF lorazepam 2 mg tablet 1 tab PO TID PRN (Reason: anxiety) 0RF levothyroxine 125 mcg tablet 1 tab PO DAILY 0RF sertraline 25 mg tablet 1 tab PO DAILY 0RF trazodone 50 mg tablet 1 tab PO BEDTIME 0RF
--- NOTE | 2021-07-03 19:02 | HO.PSYCHPN ---
Subjective Subjective Date of Service: 07/03/21 Reason For Visit: SI Interim History: I evaluated the pt this evening and upon interview he reports he is not really any better and that his mind is blank. Pt asked about trialing lithium, will defer to primary provider. Says he tried to participate in two groups, however found this so hard to concentrate. Sleep is not enough, even when I take the night meds, says he will toss and turn, wakes up at 5am. Energy is not good, feels like he is dying from the inside out. Says he is eating despite having no appetite, food is not enjoyable, i'm not tasting food. Pt is showering. Says due to his sx of depression it is tough getting through the day, unable to watch tv or read due to lack of concentration. Denies benefit on propranolol for anxiety. Says ECT helped in the past, wants to discuss this with primary provider. Denies SI, feels safe here. Medication Compliance: Yes Side effects from medications: No Attending Groups: No Review of Systems Acute medical concerns: No Medical Review of Systems: unchanged Mental Status Exam Mental Status Exam Narrative: Appearance: casually groomed, fair hygiene in NAD Behavior:cooperative psychomotor:no overt retardation or agitation noted Speech:clear, normal rate/rhythm/volume, spontaneous Thought process: repetitive at times, mostly linear Thought content:no signs of psychosis, hopeless/helpless/severe anhedonia. Mood: depressed Affect: blunted SI:passive HI:none VH/AH:none Delusions:none Insight/judgment:fair x 2. Memory/cog: alert, oriented x 3. not formally tested. Diagnostics Vital Signs (24Hr): Vital Signs - 24 hr 07/06/21 20:31 07/07/21 08:26 Temperature 97.0 F Pulse Rate 115 H 86 Respiratory Rate 18 16 Blood Pressure 123/73 135/96 H Pulse Oximetry 93 91 L BMI result Body Mass Index 33.3 Labs Results: 06/26/21 19:47 06/28/21 08:19 Medications Medications Current Medications Acetaminophen (Acetaminophen 325 Mg Tablet) 650 mg PO Q6H PRN PRN Reason: Headache/Pain Mild Scale (1-3) Al Hydroxide/Mg Hydroxide (Magnesium Hydrox/Alum Hydrox 30 Ml Oral.Susp) 30 ml PO Q6H PRN PRN Reason: Heartburn/Nausea Clonazepam (Clonazepam 1 Mg Tablet) 1 mg PO BID [facility] Last Admin: 07/07/21 08:43 Dose: 1 mg Documented by: Hydroxyzine HCl (Hydroxyzine Hcl 25 Mg Tablet) 25 mg PO Q6H PRN PRN Reason: Anxiety Last Admin: 07/05/21 00:27 Dose: 25 mg Documented by: Levothyroxine Sodium (Levothyroxine Sodium 125 Mcg Tablet) 125 mcg PO DAILY@0600 [facility] Last Admin: 07/07/21 08:43 Dose: 125 mcg Documented by: Lurasidone HCl (Lurasidone Hcl 40 Mg Tablet) 40 mg PO DAILY@1700 [facility] Last Admin: 07/07/21 16:34 Dose: 40 mg Documented by: Magnesium Hydroxide (Milk Of Magnesia 30 Ml Oral.Susp) 30 ml PO DAILY PRN PRN Reason: Constipation Propranolol HCl (Propranolol Hcl 10 Mg Tablet) 10 mg PO BID [facility]; Protocol Last Admin: 07/07/21 08:43 Dose: 10 mg Documented by: Trazodone HCl (Trazodone Hcl 50 Mg Tablet) 50 mg PO BEDTIME PRN PRN Reason: Insomnia Last Admin: 07/05/21 00:27 Dose: 50 mg Documented by: Trazodone HCl (Trazodone Hcl 100 Mg Tablet) 100 mg PO BEDTIME [facility] Last Admin: 07/06/21 20:35 Dose: 100 mg Documented by: Venlafaxine HCl (Venlafaxine Hcl Er 75 Mg Cap.Er.24h) 75 mg PO DAILY [facility] Last Admin: 07/07/21 08:43 Dose: 75 mg Documented by: Allergies Allergies Allergy/AdvReac Type Severity Reaction Status Date / Time No Known Allergies Allergy Verified 06/26/21 19:01 Assessment & Plan Assessment & Plan (1) Bipolar disorder with severe depression: Status: Acute Code(s): F31.4 - Bipolar disorder, current episode depressed, severe, without psychotic features Plan Mr. Tomas is a 50 year-old male with hx of Bipolar Disorder type 1 admitted due to feeling of numbness, depressed mood, anhedonia, anxious mood. He has hx of ECT. He reports feeling this way for about 2 years, worsening in last few months. Pt reports being on same regimen for about two years including ativan 2mg po TID, ritalin 10mg po BID, sertraline 25mg po qhs, risperidone 2mg po qhs. We discussed risks, benefits and alternative treatment options. PLAN 1. Admit to M3, 15 mins check safety 2. Decrease ativan to 1mg po TID, d/c sertraline (won't increase dose as higher doses can cause emotional blunting), increase effexor? 75mg po daily. Will keep risperidone and d/c ritalin for now. start propanolol 10mg po BID for anxiety. May consider ECT again 3. Obtain collateral information 4. Aftercare planning. I spent minutes with the patient and/or on the patient floor today, greater than?50% of which was spent counseling/coordinating care. Patient educated on: medication risk/benefits Reason for contiued inpatient stay Substantial Risk for: harm to self, rapid decompensation and med/psych decompensation
[2021-07-03] MEDS: risperiDONE 2 MG TABLET PO (20:18)
[2021-07-03] MEDS: traZODone HCL 100 MG TABLET PO (20:18)
[2021-07-04] MEDS: Levothyroxine Sodium 125 MCG TABLET PO (06:29)
[2021-07-04] MEDS: Propranolol HCL 10 MG TABLET PO ×2 (08:28→20:22)
[2021-07-04] MEDS: Venlafaxine HCl ER 75 MG CAP.ER.24H PO (08:28)
[2021-07-04 08:32] VITALS: BP 144/93; PULSE 82; RESP 18; TEMP 36.3; O2SAT 93
--- NOTE | 2021-07-04 14:12 | P.PNPSI_ITS ---
Subjective Subjective Date of Service: 07/04/21 Reason For Visit: SI Subjective Notes: Conditional Voluntary Interim History: Pt reports feeling very anxious, numbed inside although presents with rumination about his own anxiety and inability to get better. He denies SI/HI. He reports poor sleep. He reports pacing, poor attention when going to groups. Medication Compliance: Yes Review of Systems Review of Systems Yes all other systems are reviewed and are negative Constitutional: Reports difficulty sleeping Eyes: Reports no additional eye complaints Cardiovascular: Denies chest pain, Denies chest pain at rest, Denies rapid heart rate, Denies lightheadedness and Denies dyspnea Respiratory: Denies cough and Denies dyspnea Gastrointestinal: Denies constipation, Denies GI cramping and Denies diarrhea Genitourinary: Reports change in libido Psychiatric: Reports change in libido Endocrine: Reports change in libido Mental Status Exam Mental Status Exam Narrative: Appearance: casually groomed, fair hygiene in NAD Behavior:cooperative psychomotor:no overt retardation or agitation noted Speech:clear, normal rate/rhythm/volume, spontaneous Thought process: repetitive at times, mostly linear Thought content:no signs of psychosis, hopeless/helpless/severe anhedonia. Mood: numbed Affect: blunted SI:passive HI:none VH/AH:none Delusions:none Insight/judgment:fair x 2. Memory/cog: alert, oriented x 3. not formally tested. Patient Appearance: Appropriate Patient Orientation: Person, Place and Situation Level of Consciousness: Awake Patient Behavior: Appropriate Mood Description: Constricted, Depressed, Anxious and Blunted Affect Description: Withdrawn, Constricted and Blunted Diagnostics Vital Signs (24Hr): Vital Signs - 24 hr 07/06/21 20:31 07/07/21 08:26 Temperature 97.0 F Pulse Rate 115 H 86 Respiratory Rate 18 16 Blood Pressure 123/73 135/96 H Pulse Oximetry 93 91 L BMI result Body Mass Index 33.3 Labs Results: 06/26/21 19:47 06/28/21 08:19 Medications Medications Current Medications Acetaminophen (Acetaminophen 325 Mg Tablet) 650 mg PO Q6H PRN PRN Reason: Headache/Pain Mild Scale (1-3) Al Hydroxide/Mg Hydroxide (Magnesium Hydrox/Alum Hydrox 30 Ml Oral.Susp) 30 ml PO Q6H PRN PRN Reason: Heartburn/Nausea Clonazepam (Clonazepam 1 Mg Tablet) 1 mg PO BID KIRSTEN Last Admin: 07/07/21 08:43 Dose: 1 mg Documented by: Hydroxyzine HCl (Hydroxyzine Hcl 25 Mg Tablet) 25 mg PO Q6H PRN PRN Reason: Anxiety Last Admin: 07/05/21 00:27 Dose: 25 mg Documented by: Levothyroxine Sodium (Levothyroxine Sodium 125 Mcg Tablet) 125 mcg PO D AILY@0600 [facility] Last Admin: 07/07/21 08:43 Dose: 125 mcg Documented by: Lurasidone HCl (Lurasidone Hcl 40 Mg Tablet) 40 mg PO DAILY@1700 [facility] Last Admin: 07/06/21 17:06 Dose: 40 mg Documented by: Magnesium Hydroxide (Milk Of Magnesia 30 Ml Oral.Susp) 30 ml PO DAILY PRN PRN Reason: Constipation Propranolol HCl (Propranolol Hcl 10 Mg Tablet) 10 mg PO BID [facility]; Protocol Last Admin: 07/07/21 08:43 Dose: 10 mg Documented by: Trazodone HCl (Trazodone Hcl 50 Mg Tablet) 50 mg PO BEDTIME PRN PRN Reason: Insomnia Last Admin: 07/05/21 00:27 Dose: 50 mg Documented by: Trazodone HCl (Trazodone Hcl 100 Mg Tablet) 100 mg PO BEDTIME [facility] Last Admin: 07/06/21 20:35 Dose: 100 mg Documented by: Venlafaxine HCl (Venlafaxine Hcl Er 75 Mg Cap.Er.24h) 75 mg PO DAILY [facility] Last Admin: 07/07/21 08:43 Dose: 75 mg Documented by: Allergies Allergies Allergy/AdvReac Type Severity Reaction Status Date / Time No Known Allergies Allergy Verified 06/26/21 19:01 Assessment & Plan Assessment & Plan (1) Bipolar disorder with severe depression: Status: Acute Code(s): F31.4 - Bipolar disorder, current episode depressed, severe, without psychotic features Plan PLAN 1. start clonazepam 1mg po BID, d.c ativan 2. start latuda 40mg po dinner, d/c risperidone 3. continue effexor 75mg po daily- monitor increased agitation I spent minutes with the patient and/or on the patient floor today, greater than?50% of which was spent counseling/coordinating care. Reason for contiued inpatient stay Substantial Risk for: inability to function
--- NOTE | 2021-07-04 14:16 | P.CNHOSGPS_ITS ---
History of Present Illness Data of Consult Service Date: 07/04/21 Primary Care Provider: Nonstaff Physician HPI Reason for consult: ECT risk assessment 50-year-old male in inpatient psych, consult requested for ECT risk assessment. Patient denies any active chest pain, shortness of breath, fever, chills. He h as had ECT in the past about 2 years prior to presentation without any issues. Review of Systems Review of Systems: Yes all other systems are reviewed and are negative PMFSH Medical History Anxiety Depression Pertinent family history: denies arthymias Social History Household Members: Family Housing: House Do you presently have visiting nurse or other home services: No Patient Tobacco Use Status: Never used Tobacco Use of substances other than those prescribed or required for medical reasons: No Currently Displaying Signs/Symptoms of Drug Intoxication Withdrawal: No Have you been hit, kicked, punched, or otherwise hurt by someone within the past year? If so, by whom?: No Do you feel safe in your current relationship?: No Current Relationship Is there a partner from a previous relationship who is making you feel unsafe now?: No Are you made to feel afraid or neglected: No Spiritual Healthcare Practices: Patient declines. Quaker Healthcare Practices: Patient declines. Cultural Healthcare Practices: Patient declines. Advance Directives: No Do you have thoughts of harming others: None Do you have a plan to hurt others: No Plan Recently lost weight without trying: No How much weight loss: Not applicable Eating poorly because of decreased appetite: No Nutrition screen score: 0 Nutrition Risks: No Nutritional Risk Poor oral hygiene: No service: No Sexual orientation: Straight/Heterosexual Meds Allergies Allergy/AdvReac Type Severity Reaction Status Date / Time No Known Allergies Allergy Verified 06/26/21 19:01 Active Medications: Current Medications Acetaminophen (Acetaminophen 325 Mg Tablet) 650 mg PO Q6H PRN PRN Reason: Headache/Pain Mild Scale (1-3) Al Hydroxide/Mg Hydroxide (Magnesium Hydrox/Alum Hydrox 30 Ml Oral.Susp) 30 ml PO Q6H PRN PRN Reason: Heartburn/Nausea Hydroxyzine HCl (Hydroxyzine Hcl 25 Mg Tablet) 25 mg PO Q6H PRN PRN Reason: Anxiety Last Admin: 07/01/21 20:03 Dose: 25 mg Documented by: Levothyroxine Sodium (Levothyroxine Sodium 125 Mcg Tablet) 125 mcg PO DAILY@0600 [facility] Last Admin: 07/04/21 06:29 Dose: 125 mcg Documented by: Magnesium Hydroxide (Milk Of Magnesia 30 Ml Oral.Susp) 30 ml PO DAILY PRN PRN Reason: Constipation Propranolol HCl (Propranolol Hcl 10 Mg Tablet) 10 mg PO BID [facility]; Protocol Last Admin: 07/04/21 08:28 Dose: 10 mg Documented by: Risperidone (Risperidone 2 Mg Tablet) 2 mg PO BEDTIME [facility] Last Admin: 07/03/21 20:18 Dose: 2 mg Documented by: Trazodone HCl (Trazodone Hcl 50 Mg Tablet) 50 mg PO BEDTIME PRN PRN Reason: Insomnia Trazodone HCl (Trazodone Hcl 100 Mg Tablet) 100 mg PO BEDTIME [facility] Last Admin: 07/03/21 20:18 Dose: 100 mg Documented by: Venlafaxine HCl (Venlafaxine Hcl Er 75 Mg Cap.Er.24h) 75 mg PO DAILY [facility] Last Admin: 07/04/21 08:28 Dose: 75 mg Documented by: Home Medications Medication Instructions Recorded Confirmed Last Taken Type levothyroxine 125 mcg tablet 1 tab PO DAILY 06/26/21 06/26/21 Unknown History lorazepam 2 mg tablet 1 tab PO TID PRN 06/26/21 06/26/21 Unknown History methylphenidate HCl 10 mg tablet 1 tab PO BID 06/26/21 06/26/21 Unknown History risperidone 2 mg tablet 1 tab PO BEDTIME 06/26/21 06/26/21 Unknown History sertraline 25 mg tablet 1 tab PO DAILY 06/26/21 06/26/21 Unknown History trazodone 50 mg tablet 1 tab PO BEDTIME 06/26/21 06/26/21 Unknown History Results Labs CBC and Chem 7: 06/26/21 19:47 06/28/21 08:19 Assessment and Plan (1) Bipolar 1 disorder, depressed, moderate: Status: Acute Plan 50M admitted To inpatient psychiatry, consult requested for ECT risk assessment patient does not appear to have any contraindications to ECT, is an EKG from 06/27/21 that is unremarkable. Would proceed without further workup Physical Exam Vital Signs: Last Vital Signs Temp 97.3 F 07/04/21 08:32 Pulse 82 07/04/21 08:32 Resp 18 07/04/21 08:32 BP 144/93 H 07/04/21 08:32 Pulse Ox 93 07/04/21 08:32 BMI result Body Mass Index 33.5 General: AO X 3, no acute distress Resp: CTA bilateral, no accessory muscles used CVS: S1,S2,RRR GI: soft, non tender, non distended Neuro: motor grossly intact, alert Psych: flat affect, appropriate insight Neuro Cranial nerves: Yes CN's II-XII intact bilaterally
--- NOTE | 2021-07-04 15:40 | P.PNPSI_ITS ---
Subjective Subjective Date of Service: 07/04/21 Reason For Visit: SI Subjective Notes: Conditional Voluntary Interim History: Patient seen in relation to ECT patient requesting ECT has been seen previously for this The patient is a 50-year-old male with a history of bipolar disorder history of catatonia who is admitted with worsening depression hopelessness sense of emptiness and Endo knee difficulty functioning and strong sense that he would be better off . The patient typically has not responded to medication and has often required ECT to get him out of severe depression. The patient has had a past suicide attempt by putting a plastic bag over his head and has had in the past manic depressed or mixed states. He was seeing Dr. Meghan Rascon until r ecently. Patient has been on Ativan up to 2 mg 3 times a day sertraline 25 mg at bedtime Ritalin 10 mg twice a day Risperdal 2 mg at bedtime. Effexor was recently started. Of note is the patient did fail trial of Effexor up to 187 mg. The patient has had past medical trials of sertraline Wellbutrin Seroquel Lamictal Risperdal Geodon. When depressed he often has feelings of profound heaviness emptiness melancholia. He has generally responded T CT often needing bilateral and has had a past history of ECT delirium. Patient does have a history of Mobitz 1 in a very brief nonsustained episode of V tach with ECT. He was evaluated by Dr. Smith had a normal stress test and echo and ECT was resumed after adding metoprolol without difficulty. Of note on review of the record his last treatment with the ECT was not as helpful as a prior experiences. His brain MRI had showed nonspecific bile frontal white matter changes EEG at that time shows generalized slowing Medication Compliance: Yes Side effects from medications: Yes Review of Systems Acute medical concerns: No Mental Status Exam Mental Status Exam Patient Appearance: Appropriate Patient Orientation: Person, Place and Situation Level of Consciousness: Awake Patient Behavior: Appropriate Mood Description: Constricted, Depressed, Anxious and Blunted Affect Description: Withdrawn, Constricted and Blunted Hallucinations: None Delusions: Not Present Thought Content: positive for Obsessional Thoughts, positive for Preoccupation and positive for Suicidal Ideation (Passive) Depressive Symptoms: Reduced Sex Drive, Loss of Int. in Activity, Feelings of Worthlessness, Hopelessness, Thoughts of /Suicide and Loss of Energy Abnormal Motor Activity Signs and Symptoms: Psychomotor Retardation Judgement: Fair Diagnostics Vital Signs (24Hr): Vital Signs - 24 hr 07/03/21 18:00 07/04/21 08:32 Temperature 97.5 F 97.3 F Pulse Rate 101 H 82 Respiratory Rate 16 18 Blood Pressure 112/74 144/93 H Pulse Oximetry 93 93 BMI result Body Mass Index 33.5 Labs Results: 06/26/21 19:47 06/28/21 08:19 Medications Medications Current Medications Acetaminophen (Acetaminophen 325 Mg Tablet) 650 mg PO Q6H PRN PRN Reason: Headache/Pain Mild Scale (1-3) Al Hydroxide/Mg Hydroxide (Magnesium Hydrox/Alum Hydrox 30 Ml Oral.Susp) 30 ml PO Q6H PRN PRN Reason: Heartburn/Nausea Hydroxyzine HCl (Hydroxyzine Hcl 25 Mg Tablet) 25 mg PO Q6H PRN PRN Reason: Anxiety Last Admin: 07/01/21 20:03 Dose: 25 mg Documented by: Levothyroxine Sodium (Levothyroxine Sodium 125 Mcg Tablet) 125 mcg PO DAILY@0600 [facility] Last Admin: 07/04/21 06:29 Dose: 125 mcg Documented by: Magnesium Hydroxide (Milk Of Magnesia 30 Ml Oral.Susp) 30 ml PO DAILY PRN PRN Reason: Constipation Propranolol HCl (Propranolol Hcl 10 Mg Tablet) 10 mg PO BID [facility]; Protocol Last Admin: 07/04/21 08:28 Dose: 10 mg Documented by: Risperidone (Risperidone 2 Mg Tablet) 2 mg PO BEDTIME [facility] Last Admin: 07/03/21 20:18 Dose: 2 mg Documented by: Trazodone HCl (Trazodone Hcl 50 Mg Tablet) 50 mg PO BEDTIME PRN PRN Reason: Insomnia Trazodone HCl (Trazodone Hcl 100 Mg Tablet) 100 mg PO BEDTIME [facility] Last Admin: 07/03/21 20:18 Dose: 100 mg Documented by: Venlafaxine HCl (Venlafaxine Hcl Er 75 Mg Cap.Er.24h) 75 mg PO DAILY [facility] Last Admin: 07/04/21 08:28 Dose: 75 mg Documented by: Allergies Allergies Allergy/AdvReac Type Severity Reaction Status Date / Time No Known Allergies Allergy Verified 06/26/21 19:01 Assessment & Plan Assessment & Plan (1) Bipolar disorder with severe depression: Status: Acute Code(s): F31.4 - Bipolar disorder, current episode depressed, severe, without psychotic features Plan The patient is presenting severely depressed not functioning quite blunted melancholic hopeless helpless despondent with thoughts that he would be better off . Feeling has no life no activity no interest and not functioning. Chart reviewed in past records reviewed. Unfortunately during his last course of ECT at this hospital he did have a complex course. His treatment was interrupted on a couple of occasions and eventually had a total of 16 but did not seem to be clear benefit. Unclear if patient has had ECT. Since then. The patient has not had trials of FDA approved bipolar depression medications which would include Latuda and Vryalar. He has generally not responded to antidepressants. Would check EEG patient has previously had at bilateral slowing unclear if this was just from ECT treatmen see would get Pierce Presentation of cognitive dulling and apathy can also be seen with obstructive sleep apnea would check TSH B12 folate if not done I spent 30 minutes with the patient and/or on the patient floor today, greater than?50% of which was spent counseling/coordinating care. Reason for contiued inpatient stay Substantial Risk for: harm to self, inability to function and rapid decompen sation
[2021-07-04] MEDS: Lurasidone HCl 40 MG TABLET PO (18:18)
[2021-07-04 20:10] VITALS: BP 138/95; PULSE 105; RESP 19; TEMP 35.8; O2SAT 94
[2021-07-04] MEDS: traZODone HCL 100 MG TABLET PO (20:22)
[2021-07-05] MEDS: traZODone HCL 50 MG TABLET PO (00:27)
[2021-07-05] MEDS: hydrOXYzine HCL 25 MG TABLET PO (00:27)
[2021-07-05] MEDS: Levothyroxine Sodium 125 MCG TABLET PO (05:52)
[2021-07-05] MEDS: Venlafaxine HCl ER 75 MG CAP.ER.24H PO (08:30)
[2021-07-05] MEDS: Propranolol HCL 10 MG TABLET PO ×2 (08:30→20:54)
[2021-07-05 08:40] VITALS: BP 137/89; PULSE 88; RESP 16; TEMP 34.8; O2SAT 93
[2021-07-05] MEDS: clonazePAM 1 MG TABLET PO ×2 (11:15→20:54)
--- NOTE | 2021-07-05 14:15 | HO.PSYCHPN ---
Subjective Subjective Date of Service: 07/05/21 Reason For Visit: SI Subjective Notes: Conditional Voluntary Interim History: Pt reports no change in mood, continues to describe numbness but appears highly anxious and restless. He reports slight improvement in sleep. passive SI but no plan or intent. Per nursing, pacing at times, visible in unit. Review of Systems Review of Systems Yes all other systems are reviewed and are negative Constitutional: Reports difficulty sleeping Eyes: Reports no additional eye complaints Cardiovascular: Denies chest pain, Denies chest pain at rest, Denies rapid heart rate, Denies lightheadedness and Denies dyspnea Respiratory: Denies cough and Denies dyspnea Gastrointestinal: Denies constipation, Denies GI cramping and Denies diarrhea Genitourinary: Reports change in libido Psychiatric: Reports change in libido Endocrine: Reports change in libido Mental Status Exam Mental Status Exam Narrative: Appearance: casually groomed, fair hygiene in NAD Behavior:cooperative psychomotor:no overt retardation or agitation noted Speech:clear, normal rate/rhythm/volume, spontaneous Thought process: repetitive at times, mostly linear Thought content:no signs of psychosis, hopeless/helpless/severe anhedonia. Mood: numbed Affect: blunted SI:passive HI:none VH/AH:none Delusions:none Insight/judgment:fair x 2. Memory/cog: alert, oriented x 3. not formally tested. Diagnostics Vital Signs (24Hr): Vital Signs - 24 hr 07/06/21 20:31 07/07/21 08:26 Temperature 97.0 F Pulse Rate 115 H 86 Respiratory Rate 18 16 Blood Pressure 123/73 135/96 H Pulse Oximetry 93 91 L BMI result Body Mass Index 33.3 Labs Results: 06/26/21 19:47 06/28/21 08:19 Medications Medications Current Medications Acetaminophen (Acetaminophen 325 Mg Tablet) 650 mg PO Q6H PRN PRN Reason: Headache/Pain Mild Scale (1-3) Al Hydroxide/Mg Hydroxide (Magnesium Hydrox/Alum Hydrox 30 Ml Oral.Susp) 30 ml PO Q6H PRN PRN Reason: Heartburn/Nausea Clonazepam (Clonazepam 1 Mg Tablet) 1 mg PO BID KIRSTEN Last Admin: 07/07/21 08:43 Dose: 1 mg Documented by: Hydroxyzine HCl (Hydroxyzine Hcl 25 Mg Tablet) 25 mg PO Q6H PRN PRN Reason: Anxiety Last Admin: 07/05/21 00:27 Dose: 25 mg Documented by: Levothyroxine Sodium (Levothyroxine Sodium 125 Mcg Tablet) 125 mcg PO DAILY@0600 [facility] 234 BEDS AT [facility] Last Admin: 07/07/21 08:43 Dose: 125 mcg Documented by: Lurasidone HCl (Lurasidone Hcl 40 Mg Tablet) 40 mg PO DAILY@1700 [facility] 234 BEDS AT [facility] Last Admin: 07/06/21 17:06 Dose: 40 mg Documented by: Magnesium Hydroxide (Milk Of Magnesia 30 Ml Oral.Susp) 30 ml PO DAILY PRN PRN Reason: Constipation Propranolol HCl (Propranolol Hcl 10 Mg Tablet) 10 mg PO BID [facility]S [facility]CLUDE 234 BEDS AT [facility]; Protocol Last Admin: 07/07/21 08:43 Dose: 10 mg Documented by: Trazodone HCl (Trazodone Hcl 50 Mg Tablet) 50 mg PO BEDTIME PRN PRN Reason: Insomnia Last Admin: 07/05/21 00:27 Dose: 50 mg Documented by: Trazodone HCl (Trazodone Hcl 100 Mg Tablet) 100 mg PO BEDTIME [facility]S [facility]CLUDE 234 BEDS AT [facility] Last Admin: 07/06/21 20:35 Dose: 100 mg Documented by: Venlafaxine HCl (Venlafaxine Hcl Er 75 Mg Cap.Er.24h) 75 mg PO DAILY [facility]S [facility]CLUDE 234 BEDS AT [facility] Last Admin: 07/07/21 08:43 Dose: 75 mg Documented by: Allergies Allergies Allergy/AdvReac Type Severity Reaction Status Date / Time No Known Allergies Allergy Verified 06/26/21 19:01 Assessment & Plan Assessment & Plan (1) Bipolar disorder with severe depression: Status: Acute Code(s): F31.4 - Bipolar disorder, current episode depressed, severe, without psychotic features Plan PLAN 1. start clonazepam 1mg po BID, d.c ativan 2. start latuda 40mg po dinner, d/c risperidone 3. continue effexor 75mg po daily- monitor increased agitation I spent minutes with the patient and/or on the patient floor today, greater than?50% of which was spent counseling/coordinating care. Reason for contiued inpatient stay Substantial Risk for: inability to function
[2021-07-05] MEDS: Lurasidone HCl 40 MG TABLET PO (16:53)
[2021-07-05 20:49] VITALS: BP 125/84; PULSE 97; RESP 16; TEMP 36.3; O2SAT 93
[2021-07-05] MEDS: traZODone HCL 100 MG TABLET PO (20:54)
[2021-07-06] MEDS: Levothyroxine Sodium 125 MCG TABLET PO (06:38)
[2021-07-06 07:00] VITALS: BMI 33.3
[2021-07-06 08:19] VITALS: BP 124/94; PULSE 95; RESP 17; TEMP 36.1; O2SAT 91
[2021-07-06] MEDS: Venlafaxine HCl ER 75 MG CAP.ER.24H PO (08:20)
[2021-07-06] MEDS: clonazePAM 1 MG TABLET PO ×2 (08:20→20:35)
[2021-07-06] MEDS: Propranolol HCL 10 MG TABLET PO ×2 (08:20→20:35)
--- NOTE | 2021-07-06 14:17 | HO.PSYCHPN ---
Subjective Subjective Date of Service: 07/06/21 Reason For Visit: SI Subjective Notes: Conditional Voluntary Interim History: Pt reports maybe slight decrease in anxiety. He continues to report feeling , no pleasure about anything in life. Pt reports fair sleep. Poor appetite but seen eating. Passive SI. Review of Systems Review of Systems Yes all other systems are reviewed and are negative Constitutional: Reports difficulty sleeping Eyes: Reports no additional eye complaints Cardiovascular: Denies chest pain, Denies chest pain at rest, Denies rapid heart rate, Denies lightheadedness and Denies dyspnea Respiratory: Denies cough and Denies dyspnea Gastrointestinal: Denies constipation, Denies GI cramping and Denies diarrhea Genitourinary: Reports change in libido Psychiatric: Reports change in libido Endocrine: Reports change in libido Mental Status Exam Mental Status Exam Narrative: Appearance: casually groomed, fair hygiene in NAD Behavior:cooperative psychomotor:no overt retardation or agitation noted Speech:clear, normal rate/rhythm/volume, spontaneous Thought process: repetitive at times, mostly linear Thought content:no signs of psychosis, hopeless/helpless/severe anhedonia. Mood: numbed Affect: blunted SI:passive HI:none VH/AH:none Delusions:none Insight/judgment:fair x 2. Memory/cog: alert, oriented x 3. not formally tested. Diagnostics Vital Signs (24Hr): Vital Signs - 24 hr 07/06/21 20:31 07/07/21 08:26 Temperature 97.0 F Pulse Rate 115 H 86 Respiratory Rate 18 16 Blood Pressure 123/73 135/96 H Pulse Oximetry 93 91 L BMI result Body Mass Index 33.3 Labs Results: 06/26/21 19:47 06/28/21 08:19 Medications Medications Current Medications Acetaminophen (Acetaminophen 325 Mg Tablet) 650 mg PO Q6H PRN PRN Reason: Headache/Pain Mild Scale (1-3) Al Hydroxide/Mg Hydroxide (Magnesium Hydrox/Alum Hydrox 30 Ml Oral.Susp) 30 ml PO Q6H PRN PRN Reason: Heartburn/Nausea Clonazepam (Clonazepam 1 Mg Tablet) 1 mg PO BID KIRSTEN Last Admin: 07/07/21 08:43 Dose: 1 mg Documented by: Hydroxyzine HCl (Hydroxyzine Hcl 25 Mg Tablet) 25 mg PO Q6H PRN PRN Reason: Anxiety Last Admin: 07/05/21 00:27 Dose: 25 mg Documented by: Levothyroxine Sodium (Levothyroxine Sodium 125 Mcg Tablet) 125 mcg PO DAILY@0600 [facility] Last Admin: 07/07/21 08:43 Dose: 125 mcg Documented by: Lurasidone HCl (Lurasidone Hcl 40 Mg Tablet) 40 mg PO DAILY@1700 [facility] Last Admin: 07/06/21 17:06 Dose: 40 mg Documented by: Magnesium Hydroxide (Milk Of Magnesia 30 Ml Oral.Susp) 30 ml PO DAILY PRN PRN Reason: Constipation Propranolol HCl (Propranolol Hcl 10 Mg Tablet) 10 mg PO BID [facility]; Protocol Last Admin: 07/07/21 08:43 Dose: 10 mg Documented by: Trazodone HCl (Trazodone Hcl 50 Mg Tablet) 50 mg PO BEDTIME PRN PRN Reason: Insomnia Last Admin: 07/05/21 00:27 Dose: 50 mg Documented by: Trazodone HCl (Trazodone Hcl 100 Mg Tablet) 100 mg PO BEDTIME [facility] Last Admin: 07/06/21 20:35 Dose: 100 mg Documented by: Venlafaxine HCl (Venlafaxine Hcl Er 75 Mg Cap.Er.24h) 75 mg PO DAILY [facility] Last Admin: 07/07/21 08:43 Dose: 75 mg Documented by: Allergies Allergies Allergy/AdvReac Type Severity Reaction Status Date / Time No Known Allergies Allergy Verified 06/26/21 19:01 Assessment & Plan Assessment & Plan (1) Bipolar disorder with severe depression: Status: Acute Code(s): F31.4 - Bipolar disorder, current episode depressed, severe, without psychotic features Plan PLAN 1. start clonazepam 1mg po BID, d.c ativan 2. start latuda 40mg po dinner, d/c risperidone 3. continue effexor 75mg po daily- monitor increased agitation I spent minutes with the patient and/or on the patient floor today, greater than?50% of which was spent counseling/coordinating care. Reason for contiued inpatient stay Substantial Risk for: inability to function
[2021-07-06] MEDS: Lurasidone HCl 40 MG TABLET PO (17:06)
[2021-07-06 20:31] VITALS: BP 123/73; PULSE 115; RESP 18; O2SAT 93
[2021-07-06] MEDS: traZODone HCL 100 MG TABLET PO (20:35)
[2021-07-07 08:26] VITALS: BP 135/96; PULSE 86; RESP 16; TEMP 36.1; O2SAT 91
[2021-07-07] MEDS: Levothyroxine Sodium 125 MCG TABLET PO (08:43)
[2021-07-07] MEDS: clonazePAM 1 MG TABLET PO ×2 (08:43→20:32)
[2021-07-07] MEDS: Propranolol HCL 10 MG TABLET PO ×2 (08:43→20:32)
[2021-07-07] MEDS: Venlafaxine HCl ER 75 MG CAP.ER.24H PO (08:43)
--- NOTE | 2021-07-07 14:14 | HO.PSYCHPN ---
Subjective Subjective Date of Service: 07/07/21 Reason For Visit: SI Subjective Notes: Conditional Voluntary Interim History: Pt reports less anxiety, but also reports that he does not feel comfortable in unit and would rather go back home. He denies SI/HI. He reports he is mostly in bed, trying to go to groups but anxious about it. No behavioral concerns. He reports sleeping well with clonazepam. Medication Compliance: Yes Review of Systems Review of Systems Yes all other systems are reviewed and are negative Constitutional: Reports difficulty sleeping Eyes: Reports no additional eye complaints Cardiovascular: Denies chest pain, Denies chest pain at rest, Denies rapid heart rate, Denies lightheadedness and Denies dyspnea Respiratory: Denies cough and Denies dyspnea Gastrointestinal: Denies constipation, Denies GI cramping and Denies diarrhea Genitourinary: Reports change in libido Psychiatric: Reports change in libido Endocrine: Reports change in libido Mental Status Exam Mental Status Exam Narrative: Appearance: casually groomed, fair hygiene in NAD Behavior:cooperative psychomotor:no overt retardation or agitation noted Speech:clear, normal rate/rhythm/volume, spontaneous Thought process: repetitive at times, mostly linear Thought content:no signs of psychosis, hopeless/helpless/severe anhedonia. Mood: numbed Affect: blunted SI:passive HI:none VH/AH:none Delusions:none Insight/judgment:fair x 2. Memory/cog: alert, oriented x 3. not formally tested. Diagnostics Vital Signs (24Hr): Vital Signs - 24 hr 07/06/21 20:31 07/07/21 08:26 Temperature 97.0 F Pulse Rate 115 H 86 Respiratory Rate 18 16 Blood Pressure 123/73 135/96 H Pulse Oximetry 93 91 L BMI result Body Mass Index 33.3 Labs Results: 06/26/21 19:47 06/28/21 08:19 Medications Medications Current Medications Acetaminophen (Acetaminophen 325 Mg Tablet) 650 mg PO Q6H PRN PRN Reason: Headache/Pain Mild Scale (1-3) Al Hydroxide/Mg Hydroxide (Magnesium Hydrox/Alum Hydrox 30 Ml Oral.Susp) 30 ml PO Q6H PRN PRN Reason: Heartburn/Nausea Clonazepam (Clonazepam 1 Mg Tablet) 1 mg PO BID [facility] Last Admin: 07/07/21 08:43 Dose: 1 mg Documented by: Hydroxyzine HCl (Hydroxyzine Hcl 25 Mg Tablet) 25 mg PO Q6H PRN PRN Reason: Anxiety Last Admin: 07/05/21 00:27 Dose: 25 mg Documented by: Levothyroxine Sodium (Levothyroxine Sodium 125 Mcg Tablet) 125 mcg PO DAILY@0600 [facility] Last Admin: 07/07/21 08:43 Dose: 125 mcg Documented by: Lurasidone HCl (Lurasidone Hcl 40 Mg Tablet) 40 mg PO DAILY@1700 [facility] Last Admin: 07/07/21 16:34 Dose: 40 mg Documented by: Magnesium Hydroxide (Milk Of Magnesia 30 Ml Oral.Susp) 30 ml PO DAILY PRN PRN Reason: Constipation Propranolol HCl (Propranolol Hcl 10 Mg Tablet) 10 mg PO BID [facility]; Protocol Last Admin: 07/07/21 08:43 Dose: 10 mg Documented by: Trazodone HCl (Trazodone Hcl 50 Mg Tablet) 50 mg PO BEDTIME PRN PRN Reason: Insomnia Last Admin: 07/05/21 00:27 Dose: 50 mg Documented by: Trazodone HCl (Trazodone Hcl 100 Mg Tablet) 100 mg PO BEDTIME [facility] Last Admin: 07/06/21 20:35 Dose: 100 mg Documented by: Venlafaxine HCl (Venlafaxine Hcl Er 75 Mg Cap.Er.24h) 75 mg PO DAILY [facility] Last Admin: 07/07/21 08:43 Dose: 75 mg Documented by: Allergies Allergies Allergy/AdvReac Type Severity Reaction Status Date / Time No Known Allergies Allergy Verified 06/26/21 19:01 Assessment & Plan Assessment & Plan (1) Bipolar disorder with severe depression: Status: Acute Code(s): F31.4 - Bipolar disorder, current episode depressed, severe, without psychotic features Plan PLAN 1. start clonazepam 1mg po BID, d.c ativan 2. start latuda 40mg po dinner, d/c risperidone 3. continue effexor 75mg po daily- monitor increased agitation I spent minutes with the patient and/or on the patient floor today, greater than?50% of which was spent counseling/coordinating care. Reason for contiued inpatient stay Substantial Risk for: inability to function
[2021-07-07] MEDS: Lurasidone HCl 40 MG TABLET PO (16:34)
[2021-07-07 20:29] VITALS: BP 137/65; PULSE 106; RESP 18; TEMP 36.3; O2SAT 95
[2021-07-07] MEDS: traZODone HCL 100 MG TABLET PO (20:32)
[2021-07-08] MEDS: Levothyroxine Sodium 125 MCG TABLET PO (06:51)
[2021-07-08 08:30] VITALS: BP 142/92; PULSE 82; RESP 16; TEMP 36.4; O2SAT 95
[2021-07-08] MEDS: clonazePAM 1 MG TABLET PO ×2 (08:31→20:18)
[2021-07-08] MEDS: Propranolol HCL 10 MG TABLET PO (08:31)
[2021-07-08] MEDS: Venlafaxine HCl ER 75 MG CAP.ER.24H PO (08:31)
--- NOTE | 2021-07-08 10:03 | P.PNPSI_ITS ---
Subjective Subjective Date of Service: 07/08/21 Reason For Visit: SI Subjective Notes: Conditional Voluntary Medical Problems Affecting Mental Status: No Interim History: pt compliant with meds; reports no change to mood; reports feeling his brain is foggy. still anxious and depressed, no appetite Medication Compliance: Yes Side effects from medications: No Attending Groups: Intermittent Review of Systems Acute medical concerns: No BP trending up over past 3 days Medical Review of Systems: unchanged (except BP trending up) Review of Systems Review of Systems Yes all other systems are reviewed and are negative Mental Status Exam Mental Status Exam Narrative: Appearance: casually groomed, fair hygiene in NAD Behavior:cooperative psychomotor:no overt retardation or agitation noted Speech:clear, normal rate/rhythm/volume, spontaneous Thought process: repetitive at times, mostly linear Thought content: anxious themes, no signs of psychosis, hopeless/helpless/severe anhedonia. Mood: depressed anxious Affect: blunted SI:passive HI:none VH/AH:none Delusions:none Insight/judgment:fair x 2. Memory/cog: alert, oriented x 3. not formally tested. Mood Description: Constricted, Depressed, Anxious and Blunted Affect Description: Withdrawn, Constricted and Blunted Diagnostics Vital Signs (24Hr): Vital Signs - 24 hr 07/07/21 20:29 07/08/21 08:30 Temperature 97.4 F 97.6 F Pulse Rate 106 H 82 Respiratory Rate 18 16 Blood Pressure 137/65 142/92 H Pulse Oximetry 95 95 BMI result Body Mass Index 33.3 Labs Results: 06/26/21 19:47 06/28/21 08:19 EKG EKG: reviewed Medications Medications Current Medications Acetaminophen (Acetaminophen 325 Mg Tablet) 650 mg PO Q6H PRN PRN Reason: Headache/Pain Mild Scale (1-3) Al Hydroxide/Mg Hydroxide (Magnesium Hydrox/Alum Hydrox 30 Ml Oral.Susp) 30 ml PO Q6H PRN PRN Reason: Heartburn/Nausea Clonazepam (Clonazepam 1 Mg Tablet) 1 mg PO BID [facility] Last Admin: 07/08/21 08:31 Dose: 1 mg Documented by: Hydroxyzine HCl (Hydroxyzine Hcl 25 Mg Tablet) 25 mg PO Q6H PRN PRN Reason: Anxiety Last Admin: 07/05/21 00:27 Dose: 25 mg Documented by: Levothyroxine Sodium (Levothyroxine Sodium 125 Mcg Tablet) 125 mcg PO DAILY@0600 [facility] Last Admin: 07/08/21 06:51 Dose: 125 mcg Documented by: Lurasidone HCl (Lurasidone Hcl 40 Mg Tablet) 40 mg PO DAILY@1700 [facility] Last Admin: 07/07/21 16:34 Dose: 40 mg Documented by: Magnesium Hydroxide (Milk Of Magnesia 30 Ml Oral.Susp) 30 ml PO DAILY PRN PRN Reason: Constipation Propranolol HCl (Propranolol Hcl 10 Mg Tablet) 10 mg PO BID [facility]; Protocol Last Admin: 07/08/21 08:31 Dose: 10 mg Documented by: Trazodone HCl (Trazodone Hcl 50 Mg Tablet) 50 mg PO BEDTIME PRN PRN Reason: Insomnia Last Admin: 07/05/21 00:27 Dose: 50 mg Documented by: Trazodone HCl (Trazodone Hcl 100 Mg Tablet) 100 mg PO BEDTIME [facility] Last Admin: 07/07/21 20:32 Dose: 100 mg Documented by: Venlafaxine HCl (Venlafaxine Hcl Er 75 Mg Cap.Er.24h) 75 mg PO DAILY [facility] Last Admin: 07/08/21 08:31 Dose: 75 mg Documented by: Allergies Allergies Allergy/AdvReac Type Severity Reaction Status Date / Time No Known Allergies Allergy Verified 06/26/21 19:01 Assessment & Plan Assessment & Plan (1) Bipolar disorder with severe depression: Status: Acute Code(s): F31.4 - Bipolar disorder, current episode depressed, severe, without psychotic features Plan Mr. Tomas is a 50 year-old male with hx of Bipolar Disorder type 1 admitted due to feeling of numbness, depressed mood, anhedonia, anxious mood. He has hx of ECT. He reports feeling this way for about 2 years, worsening in last few months. Pt reports being on same regimen for about two years including ativan 2mg po TID, ritalin 10mg po BID, sertraline 25mg po qhs, risperidone 2mg po qhs. We discussed risks, benefits and alternative treatment options. PLAN CV 15 mins check safety Continue medications; trial increase in propranolol 20 mg BID for anxiety consider ECT again Obtain collateral information Aftercare planning. I spent ____15__ minutes with the patient and/or on the patient floor today, greater than?50% of which was spent counseling/coordinating care. Patient educated on: medication risk/benefits and therapeutic strategies Informed Consent: further education needed Reason for contiued inpatient stay Substantial Risk for: harm to self, inability to function and rapid decompensation
[2021-07-08] MEDS: Lurasidone HCl 40 MG TABLET PO (16:40)
[2021-07-08 20:15] VITALS: BP 159/76; PULSE 95; RESP 18; TEMP 36.2; O2SAT 93
[2021-07-08] MEDS: Propranolol HCL 20 MG TABLET PO (20:18)
[2021-07-08] MEDS: traZODone HCL 100 MG TABLET PO (20:18)
[2021-07-09] MEDS: Levothyroxine Sodium 125 MCG TABLET PO (06:45)
[2021-07-09 08:54] VITALS: BP 153/97; PULSE 80; RESP 17; TEMP 36.5; O2SAT 92
[2021-07-09] MEDS: Propranolol HCL 20 MG TABLET PO ×2 (08:55→20:48)
[2021-07-09] MEDS: clonazePAM 1 MG TABLET PO ×2 (08:56→20:48)
[2021-07-09] MEDS: Venlafaxine HCl ER 75 MG CAP.ER.24H PO (08:56)
--- NOTE | 2021-07-09 10:59 | P.PNPSI_ITS ---
Subjective Subjective Date of Service: 07/09/21 Reason For Visit: SI Subjective Notes: Conditional Voluntary Interim History: pt compliant with meds;denies significant change to anxiety with increased propranolol. no side effects. reports no change to mood; reports feeling his brain is foggy. still anxious and depressed, no appetite Medication Compliance: Yes Side effects from medications: No Attending Groups: No Review of Systems Acute medical concerns: No Medical Review of Systems: unchanged Review of Systems Review of Systems Yes all other systems are reviewed and are negative Constitutional: Reports difficulty sleeping Eyes: Reports no additional eye complaints Cardiovascular: Denies chest pain, Denies chest pain at rest, Denies rapid heart rate, Denies lightheadedness and Denies dyspnea Respiratory: Denies cough and Denies dyspnea Gastrointestinal: Denies constipation, Denies GI cramping and Denies diarrhea Genitourinary: Reports change in libido Psychiatric: Reports change in libido Endocrine: Reports change in libido Mental Status Exam Mental Status Exam Narrative: Appearance: casually groomed, fair hygiene in NAD Behavior:cooperative psychomotor:no overt retardation or agitation noted Speech:clear, normal rate/rhythm/volume, spontaneous Thought process: repetitive at times, mostly linear Thought content: anxious themes, no signs of psychosis, hopeless/helpless/severe anhedonia. Mood: depressed anxious Affect: blunted SI:passive HI:none VH/AH:none Delusions:none Insight/judgment:fair x 2. Memory/cog: alert, oriented x 3. not formally tested. Patient Appearance: Appropriate Patient Orientation: Person, Place and Situation Level of Consciousness: Awake Patient Behavior: Appropriate Mood Description: Constricted, Depressed, Anxious and Blunted Affect Description: Withdrawn, Constricted and Blunted Judgement: Fair Diagnostics Vital Signs (24Hr): Vital Signs - 24 hr 07/08/21 20:15 07/09/21 08:54 Temperature 97.2 F 97.7 F Pulse Rate 95 80 Respiratory Rate 18 17 Blood Pressure 159/76 H 153/97 H Pulse Oximetry 93 92 BMI result Body Mass Index 33.3 Labs Results: 06/26/21 19:47 06/28/21 08:19 Medications Medications Current Medications Acetaminophen (Acetaminophen 325 Mg Tablet) 650 mg PO Q6H PRN PRN Reason: Headache/Pain Mild Scale (1-3) Al Hydroxide/Mg Hydroxide (Magnesium Hydrox/Alum Hydrox 30 Ml Oral.Susp) 30 ml PO Q6H PRN PRN Reason: Heartburn/Nausea Clonazepam (Clonazepam 1 Mg Tablet) 1 mg PO BID [facility] Last Admin: 07/09/21 08:56 Dose: 1 mg Documented by: Hydroxyzine HCl (Hydroxyzine Hcl 25 Mg Tablet) 25 mg PO Q6H PRN PRN Reason: Anxiety Last Admin: 07/05/21 00:27 Dose: 25 mg Documented by: Levothyroxine Sodium (Levothyroxine Sodium 125 Mcg Tablet) 125 mcg PO DAILY@0600 [facility] Last Admin: 07/09/21 06:45 Dose: 125 mcg Documented by: Lurasidone HCl (Lurasidone Hcl 40 Mg Tablet) 40 mg PO DAILY@1700 [facility] Last Admin: 07/08/21 16:40 Dose: 40 mg Documented by: Magnesium Hydroxide (Milk Of Magnesia 30 Ml Oral.Susp) 30 ml PO DAILY PRN PRN Reason: Constipation Propranolol HCl (Propranolol Hcl 20 Mg Tablet) 20 mg PO BID [facility]; Protocol Last Admin: 07/09/21 08:55 Dose: 20 mg Documented by: Trazodone HCl (Trazodone Hcl 50 Mg Tablet) 50 mg PO BEDTIME PRN PRN Reason: Insomnia Last Admin: 07/05/21 00:27 Dose: 50 mg Documented by: Trazodone HCl (Trazodone Hcl 100 Mg Tablet) 100 mg PO BEDTIME [facility] Last Admin: 07/08/21 20:18 Dose: 100 mg Documented by: Venlafaxine HCl (Venlafaxine Hcl Er 75 Mg Cap.Er.24h) 75 mg PO DAILY [facility] Last Admin: 07/09/21 08:56 Dose: 75 mg Documented by: Allergies Allergies Allergy/AdvReac Type Severity Reaction Status Date / Time No Known Allergies Allergy Verified 06/26/21 19:01 Assessment & Plan Assessment & Plan (1) Bipolar disorder with severe depression: Status: Acute Code(s): F31.4 - Bipolar disorder, current episode depressed, severe, without psychotic features Plan Mr. Tomas is a 50 year-old male with hx of Bipolar Disorder type 1 admitted due to feeling of numbness, depressed mood, anhedonia, anxious mood. He has hx of ECT. He reports feeling this way for about 2 years, worsening in last few months. Pt reports being on same regimen for about two years including ativan 2mg po TID, ritalin 10mg po BID, sertraline 25mg po qhs, risperidone 2mg po qhs. We discussed risks, benefits and alternative treatment options. PLAN CV 15 mins check safety Continue medications; 07/08 increase in propranolol 20 mg BID for anxiety consider ECT again Obtain collateral information Aftercare planning. I spent minutes with the patient and/or on the patient floor today, greater than?50% of which was spent counseling/coordinating care. Reason for contiued inpatient stay Substantial Risk for: harm to self, inability to function and rapid decompensation
[2021-07-09] MEDS: Lurasidone HCl 40 MG TABLET PO (17:55)
[2021-07-09 20:41] VITALS: BP 120/77; PULSE 90; RESP 18; TEMP 36.1; O2SAT 93
[2021-07-09] MEDS: traZODone HCL 100 MG TABLET PO (20:48)
[2021-07-10] MEDS: Levothyroxine Sodium 125 MCG TABLET PO (06:39)
[2021-07-10 08:52] VITALS: BP 128/86; PULSE 88; RESP 16; TEMP 36.1; O2SAT 95
[2021-07-10] MEDS: clonazePAM 1 MG TABLET PO ×2 (08:55→21:03)
[2021-07-10] MEDS: Propranolol HCL 20 MG TABLET PO ×2 (08:56→20:52)
[2021-07-10] MEDS: Venlafaxine HCl ER 75 MG CAP.ER.24H PO (08:56)
[2021-07-10] MEDS: Lurasidone HCl 40 MG TABLET PO (16:35)
--- NOTE | 2021-07-10 18:29 | HO.PSYCHPN ---
Subjective Subjective Date of Service: 07/10/21 Reason For Visit: SI Interim History: Patient seen and discussed with team. Patient evaluated today and upon interview he reports I want to go home. Says he hasnt noticed a difference on latuda, denies side effects. Pt presents as depressed, blunted, and has noticeable paucity of speech. Denies SI or urges to self harm. Says his sleep is poor, as he wakes up throughout the night, daytime energy is low, I lay down a lot. Says his leg shakes, attributes this to anxiety from being in the hospital. Says he should be showering more than he is. Says he is eating but has no appetite. In the milieu, patient is safe but isolative in behavior. Denies SI/SIB/HI upon inquiry. Denies irritability or assaultive ideation. Says he feels safe. Medication Compliance: Yes Side effects from medications: No Attending Groups: No Review of Systems Acute medical concerns: No Medical Review of Systems: unchanged Mental Status Exam Mental Status Exam Narrative: Appearance: casually groomed, fair hygiene in NAD Behavior:cooperative psychomotor:no overt retardation or agitation noted Speech:clear, normal rate/rhythm/volume, spontaneous Thought process: repetitive at times, mostly linear Thought content: anxious themes, no signs of psychosis, hopeless/helpless/severe anhedonia. Mood: depressed anxious Affect: blunted SI:passive HI:none VH/AH:none Delusions:none Insight/judgment:fair x 2. Memory/cog: alert, oriented x 3. not formally tested. Patient Appearance:?Appropriate Patient Orientation:?Person, Place and Situation Level of Consciousness:?Awake Patient Behavior:?Appropriate Mood Description:?Constricted, Depressed, Anxious and Blunted Affect Description:?Withdrawn, Constricted and Blunted Judgement:?Fair Diagnostics Vital Signs (24Hr): Vital Signs - 24 hr 07/09/21 20:41 07/10/21 08:52 Temperature 97.0 F 96.9 F Pulse Rate 90 88 Respiratory Rate 18 16 Blood Pressure 120/77 128/86 Pulse Oximetry 93 95 BMI result Body Mass Index 33.3 Labs Results: 06/26/21 19:47 06/28/21 08:19 Medications Medications Current Medications Acetaminophen (Acetaminophen 325 Mg Tablet) 650 mg PO Q6H PRN PRN Reason: Headache/Pain Mild Scale (1-3) Al Hydroxide/Mg Hydroxide (Magnesium Hydrox/Alum Hydrox 30 Ml Oral.Susp) 30 ml PO Q6H PRN PRN Reason: Heartburn/Nausea Hydroxyzine HCl (Hydroxyzine Hcl 25 Mg Tablet) 25 mg PO Q6H PRN PRN Reason: Anxiety Last Admin: 07/05/21 00:27 Dose: 25 mg Documented by: Levothyroxine Sodium (Levothyroxine Sodium 125 Mcg Tablet) 125 mcg PO DAILY@0600 [facility] Last Admin: 07/10/21 06:39 Dose: 125 mcg Documented by: Lurasidone HCl (Lurasidone Hcl 40 Mg Tablet) 40 mg PO DAILY@1700 [facility] Last Admin: 07/10/21 16:35 Dose: 40 mg Documented by: Magnesium Hydroxide (Milk Of Magnesia 30 Ml Oral.Susp) 30 ml PO DAILY PRN PRN Reason: Constipation Propranolol HCl (Propranolol Hcl 20 Mg Tablet) 20 mg PO BID [facility]; Protocol Last Admin: 07/10/21 08:56 Dose: 20 mg Documented by: Trazodone HCl (Trazodone Hcl 50 Mg Tablet) 50 mg PO BEDTIME PRN PRN Reason: Insomnia Last Admin: 07/05/21 00:27 Dose: 50 mg Documented by: Trazodone HCl (Trazodone Hcl 100 Mg Tablet) 100 mg PO BEDTIME [facility] Last Admin: 07/09/21 20:48 Dose: 100 mg Documented by: Venlafaxine HCl (Venlafaxine Hcl Er 75 Mg Cap.Er.24h) 75 mg PO DAILY [facility] Last Admin: 07/10/21 08:56 Dose: 75 mg Documented by: Allergies Allergies Allergy/AdvReac Type Severity Reaction Status Date / Time No Known Allergies Allergy Verified 06/26/21 19:01 Assessment & Plan Assessment & Plan (1) Bipolar disorder with severe depression: Status: Acute Code(s): F31.4 - Bipolar disorder, current episode depressed, severe, without psychotic features Plan Mr. Tomas is a 50 year-old male with hx of Bipolar Disorder type 1 admitted due to feeling of numbness, depressed mood, anhedonia, anxious mood. He has hx of ECT. He reports feeling this way for about 2 years, worsening in last few months. Pt reports being on same regimen for about two years including ativan 2mg po TID, ritalin 10mg po BID, sertraline 25mg po qhs, risperidone 2mg po qhs. We discussed risks, benefits and alternative treatment options. PLAN CV 15 mins check safety Continue medications; 07/08 increase in propranolol 20 mg BID for anxiety; 07/10 increase latuda to 60 mg consider ECT again Obtain collateral information Aftercare planning. I spent minutes with the patient and/or on the patient floor today, greater than?50% of which was spent counseling/coordinating care. Reason for contiued inpatient stay Substantial Risk for: med/psych decompensation
[2021-07-10 20:45] VITALS: BP 131/92; PULSE 78; RESP 16; TEMP 36.2; O2SAT 95
[2021-07-10] MEDS: traZODone HCL 100 MG TABLET PO (20:52)
[2021-07-10] MEDS: Lurasidone HCl 20 MG TABLET PO (20:52)
[2021-07-11 06:00] VITALS: BP 142/94; PULSE 71; RESP 16; TEMP 36.3; O2SAT 94
[2021-07-11] MEDS: Levothyroxine Sodium 125 MCG TABLET PO (07:04)
[2021-07-11] MEDS: Propranolol HCL 20 MG TABLET PO ×2 (08:30→21:14)
[2021-07-11] MEDS: Venlafaxine HCl ER 75 MG CAP.ER.24H PO (08:31)
[2021-07-11] MEDS: clonazePAM 1 MG TABLET PO ×2 (08:31→21:13)
--- NOTE | 2021-07-11 10:17 | P.PNPSI_ITS ---
Subjective Subjective Date of Service: 07/11/21 Reason For Visit: SI Subjective Notes: Conditional Voluntary Interim History: Pt reports feeling anxious during the day. He appears calmer. However, he reports feeling numbed, not finding much pleasure in life but wanting to go home soon. Pt denies SI/HI. He denies VH/AH. He has been visible in unit, goes to some groups but reports his attention is poor. Per nursing, pt slept through the night. Medication Compliance: Yes Side effects from medications: No Attending Groups: Intermittent Review of Systems Review of Systems Yes all other systems are reviewed and are negative Constitutional: Reports difficulty sleeping Eyes: Reports no additional eye complaints Cardiovascular: Denies chest pain, Denies chest pain at rest, Denies rapid heart rate, Denies lightheadedness and Denies dyspnea Respiratory: Denies cough and Denies dyspnea Gastrointestinal: Denies constipation, Denies GI cramping and Denies diarrhea Genitourinary: Reports change in libido Psychiatric: Reports change in libido Endocrine: Reports change in libido Mental Status Exam Mental Status Exam Narrative: Appearance: casually groomed, fair hygiene in NAD Behavior:cooperative psychomotor:no overt retardation or agitation noted Speech:clear, normal rate/rhythm/volume, spontaneous Thought process: repetitive at times, mostly linear Thought content: anxious themes, no signs of psychosis, hopeless/helpless/severe anhedonia. Mood: depressed anxious Affect: blunted SI:passive HI:none VH/AH:none Delusions:none Insight/judgment:fair x 2. Memory/cog: alert, oriented x 3. not formally tested. Patient Appearance:?Appropriate Patient Orientation:?Person, Place and Situation Level of Consciousness:?Awake Patient Behavior:?Appropriate Mood Description:?Constricted, Depressed, Anxious and Blunted Affect Description:?Withdrawn, Constricted and Blunted Judgement:?Fair Diagnostics Vital Signs (24Hr): Vital Signs - 24 hr 07/11/21 20:54 07/12/21 08:05 Temperature 97.6 F 97.8 F Pulse Rate 95 80 Respiratory Rate 18 16 Blood Pressure 117/80 157/93 H Pulse Oximetry 94 96 BMI result Body Mass Index 33.3 Labs Results: 06/26/21 19:47 06/28/21 08:19 Medications Medications Current Medications Acetaminophen (Acetaminophen 325 Mg Tablet) 650 mg PO Q6H PRN PRN Reason: Headache/Pain Mild Scale (1-3) Al Hydroxide/Mg Hydroxide (Magnesium Hydrox/Alum Hydrox 30 Ml Oral.Susp) 30 ml PO Q6H PRN PRN Reason: Heartburn/Nausea Clonazepam (Clonazepam 1 Mg Tablet) 1 mg PO BID [facility] Last Admin: 07/12/21 08:05 Dose: 1 mg Documented by: Hydroxyzine HCl (Hydroxyzine Hcl 25 Mg Tablet) 25 mg PO Q6H PRN PRN Reason: Anxiety Last Admin: 07/05/21 00:27 Dose: 25 mg Documented by: Levothyroxine Sodium (Levothyroxine Sodium 125 Mcg Tablet) 125 mcg PO DAILY@0600 [facility] Last Admin: 07/12/21 06:48 Dose: 125 mcg Documented by: Lurasidone HCl (Lurasidone Hcl 20 Mg Tablet) 60 mg PO DAILY@1700 [facility] Last Admin: 07/11/21 17:02 Dose: 60 mg Documented by: Magnesium Hydroxide (Milk Of Magnesia 30 Ml Oral.Susp) 30 ml PO DAILY PRN PRN Reason: Constipation Propranolol HCl (Propranolol Hcl 20 Mg Tablet) 20 mg PO BID [facility]; Protocol Last Admin: 07/12/21 08:05 Dose: 20 mg Documented by: Trazodone HCl (Trazodone Hcl 50 Mg Tablet) 50 mg PO BEDTIME PRN PRN Reason: Insomnia Last Admin: 07/05/21 00:27 Dose: 50 mg Documented by: Trazodone HCl (Trazodone Hcl 100 Mg Tablet) 100 mg PO BEDTIME [facility] Last Admin: 07/11/21 21:14 Dose: 100 mg Documented by: Venlafaxine HCl (Venlafaxine Hcl Er 75 Mg Cap.Er.24h) 75 mg PO DAILY [facility] Last Admin: 07/12/21 08:05 Dose: 75 mg Documented by: Allergies Allergies Allergy/AdvReac Type Severity Reaction Status Date / Time No Known Allergies Allergy Verified 06/26/21 19:01 Assessment & Plan Assessment & Plan (1) Bipolar disorder with severe depression: Status: Acute Code(s): F31.4 - Bipolar disorder, current episode depressed, severe, without psychotic features Plan Mr. Tomas is a 50 year-old male with hx of Bipolar Disorder type 1 admitted due to feeling of numbness, depressed mood, anhedonia, anxious mood. He has hx of ECT. He reports feeling this way for about 2 years, worsening in last few months. Pt reports being on same regimen for about two years including ativan 2mg po TID, ritalin 10mg po BID, sertraline 25mg po qhs, risperidone 2mg po qhs. We discussed risks, benefits and alternative treatment options. PLAN CV 15 mins check safety Continue medications; 07/08 increase in propranolol 20 mg BID for anxiety; 07/10 increase latuda to 60 mg Obtain collateral information Aftercare planning. I spent minutes with the patient and/or on the patient floor today, greater than?50% of which was spent counseling/coordinating care. Reason for contiued inpatient stay Substantial Risk for: inability to function
[2021-07-11] MEDS: Lurasidone HCl 20 MG TABLET 60 MG PO (17:02)
[2021-07-11 20:54] VITALS: BP 117/80; PULSE 95; RESP 18; TEMP 36.4; O2SAT 94
[2021-07-11] MEDS: traZODone HCL 100 MG TABLET PO (21:14)
[2021-07-12] MEDS: Levothyroxine Sodium 125 MCG TABLET PO (06:48)
[2021-07-12 08:05] VITALS: BP 157/93; PULSE 80; RESP 16; TEMP 36.6; O2SAT 96
[2021-07-12] MEDS: Propranolol HCL 20 MG TABLET PO ×2 (08:05→21:02)
[2021-07-12] MEDS: clonazePAM 1 MG TABLET PO ×2 (08:05→21:02)
[2021-07-12] MEDS: Venlafaxine HCl ER 75 MG CAP.ER.24H PO (08:05)
--- NOTE | 2021-07-12 11:48 | P.PNPSI_ITS ---
Subjective Subjective Date of Service: 07/12/21 Reason For Visit: SI Subjective Notes: Conditional Voluntary Interim History: Pt continues to report feeling anxious during the day- he reports anxiety preventing him from going to groups. He appears calmer. He continues to report feeling numbed, not finding much pleasure in life but wanting to go home soon as he reports his anxiety increases while in the hospital. Pt denies SI/HI. He denies VH/AH. He has been visible in unit, goes to some groups but reports his attention is poor. Per nursing, pt slept through the night. We discussed starting depakote, which he agrees. Medication Compliance: Yes Review of Systems Review of Systems Yes all other systems are reviewed and are negative Constitutional: Reports difficulty sleeping Eyes: Reports no additional eye complaints Cardiovascular: Denies chest pain, Denies chest pain at rest, Denies rapid heart rate, Denies lightheadedness and Denies dyspnea Respiratory: Denies cough and Denies dyspnea Gastrointestinal: Denies constipation, Denies GI cramping and Denies diarrhea Genitourinary: Reports change in libido Psychiatric: Reports change in libido Endocrine: Reports change in libido Mental Status Exam Mental Status Exam Narrative: Appearance: casually groomed, fair hygiene in NAD Behavior:cooperative psychomotor:no overt retardation or agitation noted Speech:clear, normal rate/rhythm/volume, spontaneous Thought process: repetitive at times, mostly linear Thought content: anxious themes, no signs of psychosis, hopeless/helpless/severe anhedonia. Mood: depressed anxious Affect: blunted SI:passive HI:none VH/AH:none Delusions:none Insight/judgment:fair x 2. Memory/cog: alert, oriented x 3. not formally tested. Patient Appearance:?Appropriate Patient Orientation:?Person, Place and Situation Level of Consciousness:?Awake Patient Behavior:?Appropriate Mood Description:?Constricted, Depressed, Anxious and Blunted Affect Description:?Withdrawn, Constricted and Blunted Judgement:?Fair Diagnostics Vital Signs (24Hr): Vital Signs - 24 hr 07/12/21 20:50 07/13/21 08:15 Temperature 98.1 F 97.4 F Pulse Rate 87 76 Respiratory Rate 18 18 Blood Pressure 122/78 143/84 H Pulse Oximetry 93 95 BMI result Body Mass Index 33.3 Labs Results: 06/26/21 19:47 06/28/21 08:19 Medications Medications Current Medications Acetaminophen (Acetaminophen 325 Mg Tablet) 650 mg PO Q6H PRN PRN Reason: Headache/Pain Mild Scale (1-3) Al Hydroxide/Mg Hydroxide (Magnesium Hydrox/Alum Hydrox 30 Ml Oral.Susp) 30 ml PO Q6H PRN PRN Reason: Heartburn/Nausea Clonazepam (Clonazepam 1 Mg Tablet) 1 mg PO BID [facility] Last Admin: 07/13/21 09:02 Dose: 1 mg Documented by: Divalproex Sodium (Divalproex Sodium 500 Mg Tablet.) 500 mg PO BID [facility] Last Admin: 07/13/21 09:02 Dose: 500 mg Documented by: Hydroxyzine HCl (Hydroxyzine Hcl 25 Mg Tablet) 25 mg PO Q6H PRN PRN Reason: Anxiety Last Admin: 07/05/21 00:27 Dose: 25 mg Documented by: Levothyroxine Sodium (Levothyroxine Sodium 125 Mcg Tablet) 125 mcg PO DAILY@0600 [facility] Last Admin: 07/13/21 06:43 Dose: 125 mcg Documented by: Lurasidone HCl (Lurasidone Hcl 20 Mg Tablet) 60 mg PO DAILY@1700 [facility] Last Admin: 07/12/21 17:58 Dose: 60 mg Documented by: Magnesium Hydroxide (Milk Of Magnesia 30 Ml Oral.Susp) 30 ml PO DAILY PRN PRN Reason: Constipation Propranolol HCl (Propranolol Hcl 20 Mg Tablet) 20 mg PO BID [facility]; Protocol Last Admin: 07/13/21 09:02 Dose: 20 mg Documented by: Trazodone HCl (Trazodone Hcl 50 Mg Tablet) 50 mg PO BEDTIME PRN PRN Reason: Insomnia Last Admin: 07/05/21 00:27 Dose: 50 mg Documented by: Trazodone HCl (Trazodone Hcl 100 Mg Tablet) 100 mg PO BEDTIME [facility] Last Admin: 07/12/21 21:03 Dose: 100 mg Documented by: Venlafaxine HCl (Venlafaxine Hcl Er 75 Mg Cap.Er.24h) 75 mg PO DAILY [facility] Last Admin: 07/13/21 09:02 Dose: 75 mg Documented by: Allergies Allergies Allergy/AdvReac Type Severity Reaction Status Date / Time No Known Allergies Allergy Verified 06/26/21 19:01 Assessment & Plan Assessment & Plan (1) Bipolar disorder with severe depression: Status: Acute Code(s): F31.4 - Bipolar disorder, current episode depressed, severe, without psychotic features Plan Mr. Tomas is a 50 year-old male with hx of Bipolar Disorder type 1 admitted due to feeling of numbness, depressed mood, anhedonia, anxious mood. He has hx of ECT. He reports feeling this way for about 2 years, worsening in last few months. Pt reports being on same regimen for about two years including ativan 2mg po TID, ritalin 10mg po BID, sertraline 25mg po qhs, risperidone 2mg po qhs. We discussed risks, benefits and alternative treatment options. PLAN CV 15 mins check safety Continue medications; 07/08 increase in propranolol 20 mg BID for anxiety; 07/10 increase latuda to 60 mg; 07/12 depakote 500mg po BID. Obtain collateral information Aftercare planning. I spent minutes with the patient and/or on the patient floor today, greater than?50% of which was spent counseling/coordinating care. Reason for contiued inpatient stay Substantial Risk for: inability to function
[2021-07-12] MEDS: Divalproex Sodium 500 MG TABLET.DR PO ×2 (13:30→21:02)
[2021-07-12] MEDS: Lurasidone HCl 20 MG TABLET 60 MG PO (17:58)
[2021-07-12 20:50] VITALS: BP 122/78; PULSE 87; RESP 18; TEMP 36.7; O2SAT 93
[2021-07-12] MEDS: traZODone HCL 100 MG TABLET PO (21:03)
[2021-07-13] MEDS: Levothyroxine Sodium 125 MCG TABLET PO (06:43)
[2021-07-13 08:15] VITALS: BP 143/84; PULSE 76; RESP 18; TEMP 36.3; O2SAT 95
[2021-07-13] MEDS: Propranolol HCL 20 MG TABLET PO ×2 (09:02→21:07)
[2021-07-13] MEDS: Divalproex Sodium 500 MG TABLET.DR PO ×2 (09:02→21:07)
[2021-07-13] MEDS: clonazePAM 1 MG TABLET PO ×2 (09:02→21:07)
[2021-07-13] MEDS: Venlafaxine HCl ER 75 MG CAP.ER.24H PO (09:02)
[2021-07-13 09:30] VITALS: BMI 32.8
--- NOTE | 2021-07-13 10:13 | HO.PSYCHPN ---
Subjective Subjective Date of Service: 07/13/21 Reason For Visit: SI Interim History: Pt continues to report feeling anxious during the day- he reports anxiety preventing him from going to groups as well as poor concentration. He continues to report feeling numbed, not finding much pleasure in life but wanting to go home soon as he reports his anxiety increases while in the hospital. Pt denies SI/HI. He denies VH/AH. He has been visible in unit, goes to some groups but reports his attention is poor. Per nursing, pt slept through the night. No changes with addition of depakote. Medication Compliance: Yes Review of Systems Review of Systems Yes all other systems are reviewed and are negative Constitutional: Reports difficulty sleeping Eyes: Reports no additional eye complaints Cardiovascular: Denies chest pain, Denies chest pain at rest, Denies rapid heart rate, Denies lightheadedness and Denies dyspnea Respiratory: Denies cough and Denies dyspnea Gastrointestinal: Denies constipation, Denies GI cramping and Denies diarrhea Genitourinary: Reports change in libido Psychiatric: Reports change in libido Endocrine: Reports change in libido Mental Status Exam Mental Status Exam Narrative: Appearance: casually groomed, fair hygiene in NAD Behavior:cooperative psychomotor:no overt retardation or agitation noted Speech:clear, normal rate/rhythm/volume, spontaneous Thought process: repetitive at times, mostly linear Thought content: anxious themes, no signs of psychosis, hopeless/helpless/severe anhedonia. Mood: depressed anxious Affect: blunted SI:passive HI:none VH/AH:none Delusions:none Insight/judgment:fair x 2. Memory/cog: alert, oriented x 3. not formally tested. Patient Appearance:?Appropriate Patient Orientation:?Person, Place and Situation Level of Consciousness:?Awake Patient Behavior:?Appropriate Mood Description:?Constricted, Depressed, Anxious and Blunted Affect Description:?Withdrawn, Constricted and Blunted Judgement:?Fair Patient Appearance: Appropriate Patient Orientation: Person, Place and Situation Level of Consciousness: Awake Patient Behavior: Appropriate Mood Description: Constricted, Depressed, Anxious and Blunted Affect Description: Withdrawn, Constricted and Blunted Diagnostics Vital Signs (24Hr): Vital Signs - 24 hr 07/13/21 18:00 07/14/21 08:00 Temperature 97.2 F 97.8 F Pulse Rate 84 74 Respiratory Rate 18 16 Blood Pressure 150/92 H 137/99 H Pulse Oximetry 94 95 BMI result Body Mass Index 32.8 Labs Results: 06/26/21 19:47 06/28/21 08:19 Medications Medications Current Medications Acetaminophen (Acetaminophen 325 Mg Tablet) 650 mg PO Q6H PRN PRN Reason: Headache/Pain Mild Scale (1-3) Al Hydroxide/Mg Hydroxide (Magnesium Hydrox/Alum Hydrox 30 Ml Oral.Susp) 30 ml PO Q6H PRN PRN Reason: Heartburn/Nausea Clonazepam (Clonazepam 1 Mg Tablet) 1 mg PO BID [facility] Last Admin: 07/14/21 08:00 Dose: 1 mg Documented by: Divalproex Sodium (Divalproex Sodium 500 Mg Tablet.Dr) 500 mg PO BID [facility] Last Admin: 07/14/21 08:00 Dose: 500 mg Documented by: Hydroxyzine HCl (Hydroxyzine Hcl 25 Mg Tablet) 25 mg PO Q6H PRN PRN Reason: Anxiety Last Admin: 07/05/21 00:27 Dose: 25 mg Documented by: Levothyroxine Sodium (Levothyroxine Sodium 125 Mcg Tablet) 125 mcg PO DAILY@0600 [facility] Last Admin: 07/14/21 06:19 Dose: 125 mcg Documented by: Lurasidone HCl (Lurasidone Hcl 20 Mg Tablet) 60 mg PO DAILY@1700 [facility] Last Admin: 07/13/21 16:54 Dose: 60 mg Documented by: Magnesium Hydroxide (Milk Of Magnesia 30 Ml Oral.Susp) 30 ml PO DAILY PRN PRN Reason: Constipation Propranolol HCl (Propranolol Hcl 20 Mg Tablet) 20 mg PO BID [facility]; Protocol Last Admin: 07/14/21 07:59 Dose: 20 mg Documented by: Trazodone HCl (Trazodone Hcl 50 Mg Tablet) 50 mg PO BEDTIME PRN PRN Reason: Insomnia Last Admin: 07/05/21 00:27 Dose: 50 mg Documented by: Trazodone HCl (Trazodone Hcl 100 Mg Tablet) 100 mg PO BEDTIME [facility] Last Admin: 07/13/21 21:07 Dose: 100 mg Documented by: Venlafaxine HCl (Venlafaxine Hcl Er 75 Mg Cap.Er.24h) 75 mg PO DAILY [facility] Last Admin: 07/14/21 07:59 Dose: 75 mg Documented by: Allergies Allergies Allergy/AdvReac Type Severity Reaction Status Date / Time No Known Allergies Allergy Verified 06/26/21 19:01 Assessment & Plan Assessment & Plan (1) Bipolar disorder with severe depression: Status: Acute Code(s): F31.4 - Bipolar disorder, current episode depressed, severe, without psychotic features Plan Mr. Tomas is a 50 year-old male with hx of Bipolar Disorder type 1 admitted due to feeling of numbness, depressed mood, anhedonia, anxious mood. He has hx of ECT. He reports feeling this way for about 2 years, worsening in last few months. Pt reports being on same regimen for about two years including ativan 2mg po TID, ritalin 10mg po BID, sertraline 25mg po qhs, risperidone 2mg po qhs. We discussed risks, benefits and alternative treatment options. PLAN CV 15 mins check safety Continue medications; 07/08 increase in propranolol 20 mg BID for anxiety; 07/10 increase latuda to 60 mg; 07/12 depakote 500mg po BID. Obtain collateral information Aftercare planning. I spent minutes with the patient and/or on the patient floor today, greater than?50% of which was spent counseling/coordinating care. Reason for contiued inpatient stay Substantial Risk for: stable for discharge
[2021-07-13] MEDS: Lurasidone HCl 20 MG TABLET 60 MG PO (16:54)
[2021-07-13 18:00] VITALS: BP 150/92; PULSE 84; RESP 18; TEMP 36.2; O2SAT 94
[2021-07-13] MEDS: traZODone HCL 100 MG TABLET PO (21:07)
[2021-07-14] MEDS: Levothyroxine Sodium 125 MCG TABLET PO (06:19)
[2021-07-14] MEDS: Venlafaxine HCl ER 75 MG CAP.ER.24H PO (07:59)
[2021-07-14] MEDS: Propranolol HCL 20 MG TABLET PO (07:59)
[2021-07-14 08:00] VITALS: BP 137/99; PULSE 74; RESP 16; TEMP 36.6; O2SAT 95
[2021-07-14] MEDS: clonazePAM 1 MG TABLET PO (08:00)
[2021-07-14] MEDS: Divalproex Sodium 500 MG TABLET.DR PO (08:00)
--- NOTE | 2021-07-14 10:14 | P.DS_ITS ---
DS: Providers Provider Date of Service: 07/14/21 Date of admission: 06/27/21 17:26 Primary care physician: Nonstaff Physician Consults: 07/04/21 13:05 Consult to Hospitalist Routine Consulting Provider: Hospitalist Reason For Exam: med evaluation for ect hx mobitz 1 see ekg now DS: Diagnosis Discharge Diagnosis (1) Bipolar disorder with severe depression: Status: Acute DS: Medications Discharge Medications Home Medications: Home Medications Medication Instructions Recorded Confirmed levothyroxine 125 mcg tablet 1 tab PO DAILY 06/26/21 06/26/21 lorazepam 2 mg tablet 1 tab PO TID PRN 06/26/21 06/26/21 methylphenidate HCl 10 mg tablet 1 tab PO BID 06/26/21 06/26/21 risperidone 2 mg tablet 1 tab PO BEDTIME 06/26/21 06/26/21 sertraline 25 mg tablet 1 tab PO DAILY 06/26/21 06/26/21 trazodone 50 mg tablet 1 tab PO BEDTIME 06/26/21 06/26/21 Mental Status Exam Mental Status Exam Narrative: Appearance: casually groomed, fair hygiene in NAD Behavior:cooperative psychomotor:no overt retardation or agitation noted Speech:clear, normal rate/rhythm/volume, spontaneous Thought process: repetitive at times, mostly linear Thought content: anxious themes, no signs of psychosis, looking forward to return home Mood:less anxious Affect: constricted SI:none HI:none VH/AH:none Delusions:none Insight/judgment:fair x 2. DS: Summary Hospital Course Hospital Course: HPI: Mr. Giles is a 50 year-old male with hx of Bipolar Disorder. Mr. Giles self presented to [facility] [place] [facility] reporting increased depressed mood, anhedonia, feeling numbed. He reports feeling no plesure in life. He denies plan or intent to hurt himself but states that he feels inside. His utox was negative. On the unit, pt presents with blunted affect. He reports feeling numbed, anhedonia, lack of enjoyment in any daily activity for the past 2 years. He denies hx of VH/AH. He reports hx of bhavna last episode 5 years ago- pt overspending and engaging in other risky behaviors. He also reports difficulty concentration, poor attention. He is concern about lack of libido- has consulted urologist who told him he has ED. He also reports anxious mood, but states than feeling of numbness is more debilitating. He reports being at home all days, little to no structure. He reports lying in bed most days, feeling tired. Past Psychiatric History: INpt: several in past, last one on M5 back in 2018. OP: Pt was seeing Dr. Gauthier at [place] but this practice was closed last year.? ? Past medication trials: sertraline, wellbutrin, seroquel, lamictal, risperidone, ativan, ritalin. Suicide attempts: none HOSPITAL COURSE On the unit, Mr. Tomas was admitted on a CV and placed on 15 minutes checks for safety. Pt reports several aspects of his life that increase his anxiety, depression and poor self esteem. Pt regrets not having a partner. He worries about ED affecting his ability to find a new /girlfriend. He reports low motivation to do anything in part as he thinks it will be pointless to do anything as he is convinced it will not work. He reports severe anxious mood, especially in social situations. Collateral information gathered from his sister- several elements point to Mr. Giles's difficulty building social relationships. Most of conversation he has with others are based on his concerns with little interests in other people's perspective. Pt tendency to function best in predictable, structured environments. Other than family, pt does not have significant relationships with others. Poor problem solving skills- despite adequate intellectual capabilities. I suspect Mr. Giles has many traits of autism disorder which have affected his quality of life and level of functioning even more so than his mood disorder. We discussed risks, benefits and alternative treatment options. Pt has had many med trials. Last admission he had ECT. This time around ECT was discussed but pt declined. He had been on same medications for some years, including ativan, ritalin, wellbutrin. We discussed switching ativan to clonazepam, which pt found helpful for anxiety. Risperidone was switched to latuda for mood as he has had episodes of hypomania/bhavna in the past. His anxiety decreased. He was anxious around other patients and it was difficult for him to attend groups, but he did some. He denied suicidal or homicidal ideation. He did not appear to be internally preoccupied. No signs of aggression towards self or others. Sister denied safety concerns at time of discharge. Status at Discharge Cognitive/behavioral status at discharge: Pt with constricted affect, less anxious. No SI/HI. Pt in agreement to continue OP psychiatric treatment. No signs of aggression towards self or others. Negative self imagine is significant component to his depression and expectations in terms of making changes in his life. No signs of delusions or psychosis. Functional status at discharge: independent ambulation Overall status at discharge: patient is progressing back to baseline Time Spent with Patient Time attestation: Total time spent providing and/or coordinating discharge services: Discharge Plan Discharge Patient Disposition: Home, Self-Care Discharge Diagnosis: Bipolar 1 disorder Referrals: Misha Mercer (therapist) [Other] - 07/18/21 1:00 pm (In office appointment) Meghan Gauthier (psychiatrist) [Other] - 08/08/21 9:00 am (Telehealth appointment) Meghan Gauthier (psychiatrist) [Other] - 09/04/21 9:00 am (Telehealth appointment) Dimitry Hugo MD [Physician] - 1 Week (Provider would be calling pt for follow up appt.) Discharge Medications: New clonazepam 1 mg Tablet 1 mg PO BID Qty: 60 0RF divalproex 500 mg Tablet,Delayed Release (Dr/Ec) 500 mg PO BID Qty: 60 0RF trazodone 100 mg Tablet 100 mg PO BEDTIME Qty: 30 0RF propranolol 20 mg Tablet 20 mg PO BID Qty: 60 0RF Protocol: Hold for SBP/HR < HOLD for SBP < : 90 HOLD for HR < : 60 lurasidone 60 mg tablet 60 mg PO DAILY@1700 Qty: 30 0RF venlafaxine 75 mg Capsule,Extended Release 24hr 75 mg PO DAILY Qty: 30 0RF Continued levothyroxine 125 mcg tablet 1 tab PO DAILY 0RF Discontinued methylphenidate HCl 10 mg tablet 1 tab PO BID 0RF risperidone 2 mg tablet 1 tab PO BEDTIME 0RF lorazepam 2 mg tablet 1 tab PO TID PRN (Reason: anxiety) 0RF sertraline 25 mg tablet 1 tab PO DAILY 0RF trazodone 50 mg tablet 1 tab PO BEDTIME 0RF Discharge Orders: Discharge Order (Routine); Ordered 07/14/21 Ordered By: Genna Smith Diet: regular diet Activity on Discharge: As tolerated Stand Alone Forms: Patient Portal Discharge page, Community Support Care Plan Goals: 1. Maintain mood 2. No SI/HI. Health Concerns: follow up with pcp Plan of Treatment: take medications as prescribed go to nearest ED or call 911 in event of emergency Assessment: pt with no SI/HI. anxious, less numbness. No signs of aggression towards self or others. Discharge Date/Time: 07/14/21 11:38
--- NOTE | 2021-07-14 10:53 | PC.NURSE ---
Patient is pleasant and cooperative upon approach. Patient is Alert and oriented x4. Patient verbalized an understanding of discharge instructions and plan. Patient is in agreement with discharge planning. Patient denies SI/HI/AH/VH. Patient reports mild anxiety , but feels safe and ready for discharge. Patient denies physical complaints at this time.
== END 2021-07-14 11:38 | disposition home or self-care (01) | DRG 885 ==
LOC: HO.ED 06-27 00:48 → HO.PADLT16 06-27 18:09
PROVIDERS: Admitting Provider Social Worker; Emergency Provider Internal Medicine; Visit Provider Social Worker
DX: F31.4 Bipolar disorder, current episode depressed, severe, without psychotic features (principal); R45.851 Suicidal ideations; Z20.822 Contact with and (suspected) exposure to COVID-19; Z79.890 Hormone replacement therapy; Z79.899 Other long term (current) drug therapy
CPT/HCPCS: 36415; 80048; 80053; 80061; 80307; 81001; 82077; 82607; 82746; 83036; 84443; 85025; 87635; 93005; 99285

== ENCOUNTER 2021-08-15 10:04 | Outpatient (REF) | payer MEDICARE, SELFPAY ==
[2021-08-15 10:55] LABS: Baso%MD 0.7 %; Eos%MD 1.6 %; Hematocrit 46.1 % (42.0-52.0); IG%MD 2.1 %; Lymph%MD 22.5 %; Mean Corpuscular HGB Conc 32.5 g/dl (31.0-36.0); Mean Corpuscular Hemoglobin 28.9 pg (27.0-33.0); Mean Corpuscular Volume 88.8 fL (80.0-98.0); Mean Platelet Volume 10.6 fL (9.4-12.4); Mono%MD 10.5 %; Neut%MD 62.6 %; Platelet Count 168 X10*3/uL (160-400); Red Blood Count 5.19 X10*6/uL (4.60-5.80); Red Cell Distribution Width 12.8 % (11.0-16.0); White Blood Count 6.1 X10*3/uL (4.8-10.8)
[2021-08-15 11:20] LABS: Alanine Aminotransferase 23 U/L (0-40); Albumin Level 4.3 g/dL (3.5-5.0); Alkaline Phosphatase 61 U/L (39-117); Aspartate Amino Transferase 17 U/L (5-37); Bilirubin Direct < 0.2 mg/dL (0.0-0.5); Bilirubin Total 0.6 mg/dL (0.0-1.0); Total Protein 6.9 g/dL (6.5-8.0)
[2021-08-15 11:21] LABS: Valproate 52.3 mcg/mL (50.0-100.0)
[2021-08-15 13:44] LABS: Atypical Lymph Absolute Manual 0.1 x10*3/uL; Atypical Lymphs Percent Manual 2 % (0-6); Band Neutrophils Percent 2 % (3-5); Lymphocytes Absolute Manual 1.2 X10*3/uL (1.2-4.9); Lymphocytes Percent Manual 19 % (20-40); Monocytes Absolute Manual 0.6 X10*3/uL (0.1-1.2); Monocytes Percent Manual 10 % (2-11); Neutrophils Absolute Manual 4.2 X10*3/uL (2.0-8.3); Neutrophils Percent Manual 67 % (45-73); Platelet Estimate NORMAL (NORMAL); Platelet Morphology Comment NORMAL; RBC Morphology NORMAL
== END 2021-08-15 10:05 | disposition home or self-care (01) ==
LOC: HO.LAB 10:04
PROVIDERS: Visit Provider Psychiatry & Neurology Psychiatry
DX: Z79.899 Other long term (current) drug therapy (principal)
CPT/HCPCS: 36415; 80076; 80164; 85007; 85027

== ENCOUNTER 2021-12-22 09:37 | Outpatient (REF) | payer MEDICARE, SELFPAY ==
[2021-12-22 10:02] LABS: MANUAL DIFF FLAG NO
[2021-12-22 10:50] LABS: Basophils Percent Auto 0.6 % (0-2); Eosinophils Absolute Auto 0.1 X10*3/uL (0.0-0.4); Eosinophils Percent Auto 1.8 % (0-4); Hematocrit 45.4 % (42.0-52.0); Hemoglobin 15.3 g/dl (14.0-18.0); Imm Gran Abs Auto 0.16 X10*3/uL (0.00-0.03); Imm Gran Pct Auto 2.9 % (0.0-0.4); Lymphocytes Absolute Auto 1.5 X10*3/uL (1.2-4.9); Lymphocytes Percent Auto 27.4 % (20-40); Mean Corpuscular HGB Conc 33.7 g/dl (31.0-36.0); Mean Corpuscular Hemoglobin 29.8 pg (27.0-33.0); Mean Corpuscular Volume 88.5 fL (80.0-98.0); Mean Platelet Volume 10.5 fL (9.4-12.4); Monocytes Absolute Auto 0.6 X10*3/uL (0.1-1.2); Monocytes Percent Auto 10.7 % (2-11); Neutrophils Absolute Auto 3.1 x10*3/uL (2.0-8.3); Neutrophils Percent Auto 56.6 % (45-73); Platelet Count 169 X10*3/uL (160-400); Red Blood Count 5.13 X10*6/uL (4.60-5.80); Red Cell Distribution Width 12.6 % (11.0-16.0); White Blood Count 5.4 X10*3/uL (4.8-10.8)
[2021-12-22 11:19] LABS: Valproate 50.3 mcg/mL (50.0-100.0)
[2021-12-22 11:24] LABS: Alanine Aminotransferase 36 U/L (0-40); Albumin Level 4.3 g/dL (3.5-5.0); Alkaline Phosphatase 64 U/L (39-117); Aspartate Amino Transferase 23 U/L (5-37); Bilirubin Direct < 0.2 mg/dL (0.0-0.5); Bilirubin Total 0.4 mg/dL (0.0-1.0)
== END 2021-12-22 09:38 | disposition home or self-care (01) ==
LOC: HO.LAB 09:37
PROVIDERS: PCP Family Medicine; Visit Provider Psychiatry & Neurology Psychiatry
DX: Z79.899 Other long term (current) drug therapy (principal)
CPT/HCPCS: 36415; 80076; 80164; 85025

== ENCOUNTER 2022-02-16 11:01 | Outpatient (REF) | payer MEDICARE, SELFPAY ==
[2022-02-16 13:02] LABS: Valproate 52.3 mcg/mL (50.0-100.0)
== END 2022-02-16 11:02 | disposition home or self-care (01) ==
LOC: HO.LAB 11:01
PROVIDERS: Visit Provider Psychiatry & Neurology Psychiatry
DX: Z51.81 Encounter for therapeutic drug level monitoring (principal); Z79.899 Other long term (current) drug therapy
CPT/HCPCS: 36415; 80164

== ENCOUNTER 2022-05-31 10:15 | Outpatient (REF) | payer MEDICARE, SELFPAY ==
[2022-05-31 11:20] LABS: Valproate 47.2 mcg/mL (50.0-100.0)
== END 2022-05-31 10:16 | disposition home or self-care (01) ==
LOC: HO.LAB 10:15
PROVIDERS: PCP Family Medicine; Visit Provider Psychiatry & Neurology Psychiatry
DX: Z79.899 Other long term (current) drug therapy (principal)
CPT/HCPCS: 36415; 80164

== ENCOUNTER 2022-10-16 09:06 | Outpatient (REF) | payer MEDICARE, SELFPAY ==
[2022-10-16 10:29] LABS: Valproate 44.2 mcg/mL (50.0-100.0)
== END 2022-10-16 09:07 | disposition home or self-care (01) ==
LOC: HO.LAB 09:06
PROVIDERS: PCP Family Medicine; Visit Provider Psychiatry & Neurology Psychiatry
DX: Z79.899 Other long term (current) drug therapy (principal)
CPT/HCPCS: 36415; 80164

== ENCOUNTER 2023-02-19 08:53 | Outpatient (REF) | payer MEDICARE, SELFPAY ==
[2023-02-19 09:25] LABS: Basophils Percent Auto 0.5 % (0-2); Eosinophils Absolute Auto 0.1 X10*3/uL (0.0-0.4); Eosinophils Percent Auto 1.5 % (0-4); Hematocrit 44.5 % (42.0-52.0); Hemoglobin 15.2 g/dl (14.0-18.0); Imm Gran Abs Auto 0.13 X10*3/uL (0.00-0.03); Lymphocytes Absolute Auto 1.6 X10*3/uL (1.2-4.9); Lymphocytes Percent Auto 24.1 % (20-40); MANUAL DIFF FLAG NO; Mean Corpuscular HGB Conc 34.2 g/dl (31.0-36.0); Mean Corpuscular Hemoglobin 30.4 pg (27.0-33.0); Mean Platelet Volume 10.6 fL (9.4-12.4); Monocytes Absolute Auto 0.8 X10*3/uL (0.1-1.2); Monocytes Percent Auto 12.6 % (2-11); Neutrophils Absolute Auto 3.9 x10*3/uL (2.0-8.3); Neutrophils Percent Auto 59.3 % (45-73); Platelet Count 192 X10*3/uL (160-400); Red Cell Distribution Width 12.4 % (11.0-16.0); White Blood Count 6.5 X10*3/uL (4.8-10.8)
[2023-02-19 09:53] LABS: Valproate 32.2 mcg/mL (50.0-100.0)
[2023-02-19 09:58] LABS: Alanine Aminotransferase 18 U/L (0-40); Albumin Level 4.3 g/dL (3.5-5.0); Alkaline Phosphatase 61 U/L (39-117); Aspartate Amino Transferase 17 U/L (5-37); Bilirubin Direct 0.1 mg/dL (0.0-0.5); Bilirubin Total 0.4 mg/dL (0.0-1.0); Total Protein 7.1 g/dL (6.5-8.0)
== END 2023-02-19 08:54 | disposition home or self-care (01) ==
LOC: HO.LAB 08:53
PROVIDERS: PCP Psychiatry & Neurology Psychiatry; Visit Provider Family Medicine
DX: Z79.899 Other long term (current) drug therapy (principal)
CPT/HCPCS: 36415; 80076; 80164; 85025

== ENCOUNTER 2023-09-03 10:40 | Outpatient (REF) | payer MEDICARE, SELFPAY ==
[2023-09-03 12:49] LABS: Valproate 59.2 mcg/mL (50.0-100.0)
[2023-09-04 09:03] LABS: Prolactin 7.9 ng/mL (2.0-18.0)
== END 2023-09-03 10:41 | disposition home or self-care (01) ==
LOC: HO.LAB 10:40
PROVIDERS: PCP Family Medicine; Visit Provider Psychiatry & Neurology Psychiatry
DX: Z79.899 Other long term (current) drug therapy (principal)
CPT/HCPCS: 36415; 80164; 84146

== ENCOUNTER 2024-02-27 09:20 | Outpatient (REF) | payer MEDICARE, SELFPAY ==
[2024-02-27 11:03] LABS: Valproate 56.2 mcg/mL (50.0-100.0)
== END 2024-02-27 09:21 | disposition home or self-care (01) ==
LOC: HO.LAB 09:20
PROVIDERS: PCP Student in an Organized Health Care Education/Training Program; Visit Provider Psychiatry & Neurology Psychiatry
DX: Z79.899 Other long term (current) drug therapy (principal)
CPT/HCPCS: 36415; 80164; 84146

== ENCOUNTER 2024-08-12 09:52 | Outpatient (AMB) | payer MEDICARE, SELFPAY ==
[2024-08-12 10:35] VITALS: BP 132/70; PULSE 95; O2SAT 91; BMI 38.3
--- NOTE | 2024-08-12 10:35 | MHC.OFFVIS ---
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 Operator Required: No Field Irrigation Worker: Field Irrigation Worker offered & declined Accompanied by: Self / Same As Patient Allergies No Known Allergies Allergy (Verified 08/12/24 10:40) Medication List - Last Reconciled 08/12/24 by Monika Vanegas LPN atorvastatin 20 mg PO DAILY clonazepam 1 mg PO BID divalproex 500 mg PO BID levothyroxine 1 tab PO DAILY lurasidone 60 mg PO DAILY@1700 propranolol 20 mg See Protocol PO BID risperidone 2 mg PO DAILY trazodone 100 mg PO BEDTIME venlafaxine ER 75 mg PO DAILY HPI HPI Obstructive sleep apnea: Details: Paxton is a pleasant 53 year old, never smoker, with underlying MELI, Bipolar disorder, HLD, Hypothryoidism and DMII. He was referred by PCP for pulmonary evaluation. He has underwent two prior sleep studies that revealed mild to moderate MELI with significant nocturnal hypoxemia. He recently underwent repeat in lab titration study through [facility] last week and is scheduled to be set up with therapy. No recent records available today. He reports his oxygen saturation is often lower 90s. He denies prior history of supplemental oxygen. He denies prior h/o asthma. He denies recurrent respiratory infections. He denies any respiratory symptoms at this time however notes his brother told him his breathing appears labored. He denies occupational exposures. He denies any pertinent family history. He is scheduled for cardiology evaluation possibly through [facility] [place]. Denies prior workup. Denies BLE edema or orthopnea. [facility] Medical History (Updated 08/12/24 @ 20:43 by Selin Reich NP) Hypothyroidism determined by thyroid function test Anxiety Depression Social History Household Members: Family Housing: House Do you presently have visiting nurse or other home services: No Patient Tobacco Use Status: Never used Tobacco service: No Sexual orientation: Straight/Heterosexual Review of Systems Const Denies chills, Denies excessive sweating, Denies fever(s), Denies headache(s) and Denies night sweats Eyes Denies dry eyes, Denies irritation and Denies itchy eyes ENT Reports Normal hearing present, Denies headache(s), Denies nasal congestion, Denies nasal discharge, Denies post nasal drip and Denies sore throat Card Denies chest pain, Denies chest pain at rest, Denies chest pain with activity, Denies claudication, Denies leg edema, Denies dyspnea, Denies dyspnea on exertion, Denies orthopnea and Denies paroxysmal nocturnal dyspnea Resp Denies chest congestion, Denies cough, Denies excessive phlegm production, Denies pain on inspiration, Denies pain with cough, Denies dyspnea, Denies dyspnea on exertion, Denies stridor and Denies wheezing Musc Denies myalgias Neuro Reports Normal hearing present and Denies headache(s) Endo Denies excessive sweating Eladio/Lymph Denies lymphadenopathy Aller/Immun Denies itchy eyes, Denies seasonal rhinorrhea and Denies wheezing Physical Exam Vital Signs: Last Vital Signs Pulse 95 08/12/24 10:35 BP 132/70 08/12/24 10:35 Pulse Ox 91 L 08/12/24 10:35 Oxygen Delivery Method Room Air 08/12/24 10:35 BMI result Body Mass Index 38.3 Const General: cooperative, healthy appearing, comfortable, no acute distress, well developed and alert Nutritional Appearance: obese Orientation/consciousness: patient oriented x3 Limitations: no limitations HEENT Head: Yes normal to inspection, Yes normocephalic and Yes atraumatic Ears: hearing grossly normal bilaterally and external ears normal Eyes General: appearance normal, both eyes and all related structures Eyelids: Yes eyelids normal Sclerae: sclerae normal EOM: EOMs intact bilaterally Neck Neck: Yes normal visual inspection and Yes no lymphadenopathy Lymphatic: no lymphadenopathy noted Chest Chest palpation & inspection: normal inspection of the chest Resp Effort & Inspection: normal respiratory effort, able to speak in complete sentences, no audible wheezes, no cough, no stridor, not tachypneic, no tripod positioning and no use of accessory muscles Auscultation: clear to auscultation bilaterally Cardio Jugular venous distension: no JVD Rate: regular rate Rhythm: regular rhythm Skin Other: warm, dry General skin exam: no rashes or lesions noted Neuro General: patient oriented x3 Cranial nerves: Yes Normal hearing present Cognition (Neuro): normal cognition Gait exam (Neuro): Normal gait present Extrem General: Yes normal to inspection, Yes capillary refill normal, Yes no clubbing, cyanosis or edema and Yes no pedal edema Psych Appearance: grossly normal and well kempt Speech and movement: Normal speech and movement present and Clear speech present Affect: Blunted affect present Attitude: cooperative Thought process: Normal thought process present Thought content: Normal thought content present Insight: Good insight present (Psych) Judgement: Good judgement present (Psych) Assessment & Plan Assessment & Plan (1) Moderate obstructive sleep apnea: Code(s): G47.33 - Obstructive sleep apnea (adult) (pediatric) Category: Medical (2) Nocturnal hypoxemia: Code(s): G47.34 - Idiopathic sleep related nonobstructive alveolar hypoventilation Category: Medical (3) Dyspnea: Code(s): R06.00 - Dyspnea, unspecified Category: Medical Plan Paxton presents for pulmonary evaluation after prior sleep study revealed significant amount of nocturnal hypoxemia. He is under the care of [facility] having recent sleep study performed and will be started on CPAP/BiPAP therapy. Will obtain records. Given that patient with underlying nocturnal hypoxemia, will send for chest CT to assess for any underlying parenchymal condition contributing to hypoxia. Will send for PFT to assess for any obstructive or restrictive defect as well as decrease in diffusion capacity. Will plan on 6MWT at next visit. All questions were answered and patient is in agreement of plan. Will follow up to review results or sooner if needed. Orders: Orders CT chest wo IV con Today G47.34 - Idiopathic sleep related nonobstructive alveolar hypoventilation PFT pulmonary function test Today G47.34 - Idiopathic sleep related nonobstructive alveolar hypoventilation, R06.00 - Dyspnea, unspecified Coding Level of Care Code New Pt Level 4 (21301) Diagnoses Moderate obstructive sleep apnea G47.33 Nocturnal hypoxemia G47.34 Dyspnea R06.00
--- OUTSIDE RECORDS SUMMARY | 2024-08-12 11:11 | XMS_ITS | Clinical Summary ---
Author Organization 175 [facility] Address [address] [place] [address] Phone Care Team Providers Care Billposter Name Role Phone Adán Renee MD Primary Care Provider [phone] Allergies No known active allergies Medications atorvastatin (LIPITOR) 20 mg tablet Take 1 tablet (20 mg total) by mouth 1 (one) time each day. 30 each 11 4 03/25/20 25 Active risperiDONE (RisperDAL) 2 mg tablet Take 1 tablet (2 mg total) by mouth 1 (one) time each day. 4 Active venlafaxine XR (EFFEXOR-XR) 150 mg 24 hr capsule Take 1 capsule (150 mg total) by mouth 1 (one) time each day. 4 Active divalproex (DEPAKOTE) [address] tablet Take 1 tablet (250 mg total) by mouth 1 (one) time each day. Active clonazePAM (KlonoPIN) 1 mg tablet Take 1 tablet (1 mg total) by mouth 2 (two) times a day if needed. Active divalproex (DEPAKOTE) [address] tablet Take 1 tablet (500 mg total) by mouth 2 (two) times a day. Take 750 mg in the morning and 500 mg at night Active traZODone (DESYREL) 100 mg tablet Take 1 tablet (100 mg total) by mouth at bedtime. Active levothyroxine (SYNTHROID, LEVOTHROID) 125 mcg tablet Take 1 tablet (125 mcg total) by mouth 1 (one) time each day. 90 each 3 5 05/19/19 26 Active lancets lancetsIndicat ions:Controlle d type 2 diabetes mellitus without complication, without long-term current use of insulin ([facility] V24, [facility] V28) Check blood sugar daily as directed. 200 each 11 5 07/23/19 26 Active blood-glucose meter miscIndication s:Controlled type 2 diabetes mellitus without complication, without long-term current use of insulin ([facility] V24, [facility] V28) Use daily or as directed for monitoring of diabetes. 1 each 5 07/23/19 26 Active glucose blood test stripIndicatio ns:Controlled type 2 diabetes mellitus without complication, without long-term current use of insulin ([facility] V24, [facility] V28) Use as instructed 100 each 11 5 07/23/19 26 Active metFORMIN XR (GLUCOPHAGE-XR ) 500 mg 24 hr tabletIndicati ons:Type 2 diabetes mellitus without complication, without long-term current use of insulin ([facility] V24, [facility] V28) Take 1 tablet (500 mg total) by mouth 2 (two) times a day. Do not crush, chew, or split. 180 tablet 1 5 Active cholecalcifero l (VITAMIN D-3) 250 mcg (10,000 unit) capsuleIndicat ions:Vitamin D deficiency Take 1 capsule (10,000 Units total) by mouth 1 (one) time each day. 30 each 11 5 07/27/19 26 Active metFORMIN XR (GLUCOPHAGE-XR ) 500 mg 24 hr tablet Take 1 tablet (500 mg total) by mouth 1 (one) time each day. Do not crush, chew, or split. 90 tablet 1 5 07/27/19 25 Discontinu ed(Reorder ) Active Problems Problem Noted Date Diagnosed Date Hyperlipemia 06/28/2022 Overview (04/07/2024): [facility] 6% 07/19 Low libido 04/17/2021 Testosterone deficiency 10/12/2020 Overview (04/07/2024): [facility] Erectile dysfunction 05/15/2020 Overview (04/07/2024): [facility] Diabetes type 2, controlled ([facility] V24, [facility] V28) 11/03/2015 Bipolar 1 disorder, depressed ([facility] V24, [facility] V28) 10/07/2015 Overview (04/07/2024): ECT Hypothyroidism 04/19/2008 Encounters Date Type Department Care Team Description 07/22/2024 1:30 PM EDT Office Visit Internal Medicine - [address] [place] [address] Delilah Subramanian NP Routine adult health maintenance (Primary Dx); Hypoxemia; Sleep apnea, unspecified type; BMI 37.0-37.9, adult; Erectile dysfunction, unspecified erectile dysfunction type; Controlled type 2 diabetes mellitus without complication, without long-term current use of insulin ([facility] V24, [facility] V28); Vitamin D deficiency, unspecified; Encounter for screening for malignant neoplasm of prostate; Bipolar 1 disorder, depressed ([facility] V24, [facility] V28) from Last 3 Months Immunizations Name Administration Dates Next Due Influenza Quadravalent, MDCK , 0.5ml, preservative free (Flucelvax) 6mo and older 01/18/2022,04/10/2021 Influenza trivalent, 0.5mL, preservative free (Fluarix; FluLaval; Fluzone) ages 6mo and older (Afluria) 3 years and older 02/07/2019 Influenza trivalent, with preservative (Fluzone; Afluria) 6mo and older 03/07/2020 Moderna SARS-CoV-2 COVID-19, mRNA, LNP-S, preservative free 01/31/2023,08/31/2022 Pfizer SARS-CoV-2 COVID-19, mRNA, LNP-S, preservative free 11/17/2021,03/30/2021,09/04/2020,2020 Td Tetanus diptheria (Tdvax) 7yo and older 09/10/2018 Tdap Tetanus diptheria acell ular pertussis (Boostrix; Adacel) 7yo and older 04/19/2008 Surgical History Surgery Date Site/Laterality Comments MOLE REMOVAL PROCEDURE: HISTORICAL MOLE (REMOVAL OF) Medical History Medical History Date Comments Nevus, non-neoplastic DX:Nevus, non-neoplastic Dysplastic nevus 06/27/2012 DX:Dysplastic n evus History of dysplastic nevus 06/27/2012 DX:H istory of dysplastic nevus; COMMENT: Dysplastic nevus 06/11 right flank (mild atypia) Family History Medical History Relation Name Comments Diabetes Father Hypertension Father Melanoma Maternal Grandmother Bipolar disorder Mother Other cancer Mother head and neck CA Other: Still's disease Mother Heart attack Neg Hx Relation Name Status Comments Brother Alive Father Alive Maternal Grandmother Mother Sister Alive Social History Tobacco Use Types Packs/Day Years Used Date Smoking Tobacco: Never Smokeless Tobacco: Never Alcohol Use Standard Drinks/Week Comments No 0 (1 standard drink = 0.6 oz pur e alcohol) Sex and Gender Information Value Date Recorded Sex Assigned at Not on file Legal Sex Male 2:12 AM EST Gender Identity Not on file Sexual Orientation Not on file Occupation Industry Job Start Date Job End Date on SSDI for biploar disorder Not on file Not on file Not on file Obstetrics History Last Filed Vital Signs Vital Sign Reading Time Taken Comments Blood Pressure 130/86 07/22/2024 1:12 PM EDT Pulse 92 07/22/2024 1:12 PM EDT Temperature - - Respiratory Rate - - Oxygen Saturation 92% 07/22/2024 1:12 PM EDT Inhaled Oxygen Concentration - - Weight 111 kg (244 lb 6.4 oz) 07/22/2024 1:12 PM EDT Height 172.7 cm (5' 8 ) 07/22/2024 1:12 PM EDT Body Mass Index 37.16 07/22/2024 1:12 PM EDT Plan of Treatment Upcoming Encounters Date Type Department Care Team (Late st Contact Info) Description 11/26/2024 10:20 AM EDT Office Visit [facility] [address] [place] [phone] Kevin Clement MD [facility] [address] [place] [address] 01/25/2025 1:30 PM EDT Office Visit Internal Medicine - [address] [place] [phone] Adán Renee MD [address] [place] [address] [address] [place] [address] Health Maintenance Due Date Last Done Comments Diabetes: Annual Foot Exam 1978 Diabetes: Annual Retina Eye Exam 1978 Hepatitis B Vaccines (1 of 3 - 19+ 3-dose series) 10/18/1987 Pneumococcal Vaccine: 50+ Years (1 of 2 - PCV) 10/18/1987 Pneumococcal Vaccine: Pediatrics (0 to 5 Years) and At-Risk Patients (6 to 64 Years) (1 of 2 - PCV) 10/18/1987 Colorectal Cancer Screening: Colonoscopy 04/07/2022 Depression Screening 04/07/2022 HIV Screening 04/07/2022 Medicare Annual Wellness Visit 04/07/2022 Social Influencers of Health Screening 04/07/2022 COVID-19 Vaccine (8 - Pfizer risk season) 2024 01/11/2024, 01/31/2023, 08/31/2022, Additional history exists Diabetes: Blood Sugar Control Test (HGBA1C) 01/23/2025 07/23/2024, 01/21/2024, 01/21/2024, Additional history exists Diabetes: Annual GFR (Glomerular Filtration Rate) 07/23/2025 07/23/2024, 01/21/2024, 01/21/2024, Additional history exists Diabetes: Annual Urine Albumin-Creatinine Ratio (uACR) 07/27/2025 07/27/2024 DTaP,Tdap,and Td Vaccines (3 - Td or Tdap) 09/10/2028 09/10/2018, 04/19/2008 Cholesterol Screening (Lipid Panel) 07/23/2029 07/23/2024, 01/21/2024, 01/21/2024, Additional history exists Hepatitis C Screening Completed 06/27/2022 Zoster Vaccines Completed 09/17/2022, 11/23/2021 Influenza Vaccine Completed 01/11/2024, , 01/18/2022, Additional history exists HIB Vaccines Aged Out No longer eligi ble based on patient's age to complete this topic HPV Vaccines Aged Out No longer eligi ble based on patient's age to complete this topic Hepatitis A Vaccines Aged Out No long er eligible based on patient's age to complete this topic IPV Vaccines Aged Out No longer eligi ble based on patient's age to complete this topic MMR Vaccines Aged Out No longer eligi ble based on patient's age to complete this topic Meningococcal ACWY Vaccine Aged Out N o longer eligible based on patient's age to complete this topic Meningococcal B Vaccine Aged Out No l onger eligible based on patient's age to complete this topic RSV Immunization Patients Under 20 months Aged Out No longer eligible based on patient's age to complete this topic Varicella Vaccines Aged Out No longer eligible based on patient's age to complete this topic Procedures Procedure Name Priority Date/Time Associated Diagnosis Comments MICROALBUMIN CREATININE URINE RATIO Routine 07/27/2024 2:10 PM EDT Controlled type 2 diabetes mellitus without complication, without long-term current use of insulin ([facility] V24, [facility] V28) COMPLETE BLOOD COUNT Routine 07/23/2024 10:07 AM EDT Routine adult health maintenance COMPREHENSIVE METABOLIC PANEL Routine 07/23/2024 10:07 AM EDT Routine adult health maintenance HEMOGLOBIN A1C Routine 07/23/2024 10:07 AM EDT Controlled type 2 diabetes mellitus without complication, without long-term current use of insulin ([facility] V24, [facility] V28) MAGNESIUM Routine 07/23/2024 10:07 AM EDT Routine adult health maintenance THYROID STIMULATING HORMONE Routine 07/23/2024 10:07 AM EDT Routine adult health maintenance LIPID PANEL WITH REFLEX TO DIRECT LDL Routine 07/23/2024 10:07 AM EDT Routine adult health maintenance VITAMIN B12 Routine 07/23/2024 10:07 AM EDT Routine adult health maintenance VITAMIN D 25 HYDROXY Routine 07/23/2024 10:07 AM EDT Routine adult health maintenance Vitamin D deficiency, unspecified PROSTATE SPECIFIC ANTIGEN SCREEN Routine 07/23/2024 10:07 AM EDT Routine adult health maintenance Encounter for screening for malignant neoplasm of prostate HEPATITIS C SCREENING Routine 06/27/2022 from Last 3 Months or Most Recently Relevant to Health Maintenance Results * (ABNORMAL) Microalbumin creatinine urine ratio (07/27/2024 2:10 PM EDT) Creatinine, Urine 200.0 mg/dL LAB CHEMISTRY METHOD 07/27/2024 4:43 PM EDT [facility] Microalb, Ur 248.0(H) 0.0 - 29.0 mg/L LAB CHEMISTRY METHOD 07/27/2024 4:43 PM EDT [facility] Microalb/Crea t Ratio 124(H) <30 mg/g creat LAB CHEMISTRY METHOD 07/27/2024 4:43 PM EDT [facility] Urine Urine specimen obtained by clean catch procedure / Unknown Non-blood Collection / Unknown 07/27/2024 2:10 PM EDT 07/27/2024 2:10 PM EDT Delilah Subramanian NP LAB URINE ORDERABLES Final Resul t [facility] [address] [place] [address], * Prostate specific antigen screen (07/23/2024 10:07 AM EDT) PSA 0.51 0.00 - 4.00 ng/mL LAB CHEMISTRY METHOD 07/23/2024 2:20 PM EDT [facility] Blood Venous blood specimen / Unknown Venipuncture / Unknown 07/23/2024 10:07 AM EDT 07/23/2024 10:07 AM EDT Narrative [facility] - 07/23/2024 2:20 PM EDT The Siemens Advia Centaur Chemiluminescent Immunoassay is used. Results obtained with different assay methods or kits cannot be used interchangeably. Results cannot be interpreted as absolute evidence of the presence or absence of malignant disease. us Delilah Moris [employer]PER[employer] LAB BLOOD ORDERABLES Final Resul t Performing Organization Address City/[facility]/ZIP Co de Phone Number [facility] [address] [place] [address], [place] [phone] * (ABNORMAL) Lipid panel with reflex to direct LDL (07/23/2024 10:07 AM EDT) Cholesterol 163 0 - 200 mg/dL LAB CHEMISTRY METHOD 07/23/2024 2:03 PM EDT [facility] Triglycerides 196(H) 0 - 150 mg/dL LAB CHEMISTRY METHOD 07/23/2024 2:03 PM EDT [facility] HDL 40 >=40 mg/dL LAB CHEMISTRY METHOD 07/23/2024 2:03 PM EDT [facility] LDL Calculated 84 0 - 100 mg/dL LAB CHEMISTRY METHOD 07/23/2024 2:03 PM EDT [facility] VLDL Cholesterol Esdras 39.2 mg/dL LAB CHEMISTRY METHOD 07/23/2024 2:03 PM EDT [facility] Non HDL Chol. (LDL+VLDL) 123 <145 mg/dL LAB CHEMISTRY METHOD 07/23/2024 2:03 PM EDT [facility] Chol/HDL Ratio 4.1 0.0 - 4.4 LAB CHEMISTRY METHOD 07/23/2024 2:03 PM EDT [facility] Blood Venous blood specimen / Unknown Venipuncture / Unknown 07/23/2024 10:07 AM EDT 07/23/2024 10:07 AM EDT Delilah Subramanian NP LAB BLOOD ORDERABLES Final Resul t Performing Organization Address City/[facility]/ZIP Co de Phone Number [facility] [address] [place] [address], [place] [phone] * (ABNORMAL) Vitamin D 25 hydroxy (07/23/2024 10:07 AM EDT) [facility] Vit D, 25-Hydroxy 16.8(L) 30.0 - 80.0 ng/mL LAB CHEMISTRY METHOD 07/23/2024 2:20 PM EDT [facility] Blood Venous blood specimen / Unknown Venipuncture / Unknown 07/23/2024 10:07 AM EDT 07/23/2024 10:07 AM EDT Delilah Subramanian NP LAB BLOOD ORDERABLES Final Resul t [facility] [address] [place] [address], * (ABNORMAL) Complete blood count (07/23/2024 10:07 AM EDT) [facility] WBC 6.1 4.8 - 10.8 K/mcL LAB HEMETOLOGY METHOD 07/23/2024 12:43 PM EDT [facility] RBC 5.30 4.50 - 5.50 M/mcL LAB HEMETOLOGY METHOD 07/23/2024 12:43 PM EDT [facility] Hemoglobin 15.8 13.5 - 17.5 g/dL LAB HEMETOLOGY METHOD 07/23/2024 12:43 PM EDT [facility] Hematocrit 47.6 42.0 - 54.0 % LAB HEMETOLOGY METHOD 07/23/2024 12:43 PM EDT [facility] MCV 90.5 79.0 - 98.0 FL LAB HEMETOLOGY METHOD 07/23/2024 12:43 PM EDT [facility] MCH 30.0 27.0 - 32.0 pcg LAB HEMETOLOGY METHOD 07/23/2024 12:43 PM EDT [facility] MCHC 33.2 32.0 - 37.0 g/dL LAB HEMETOLOGY METHOD 07/23/2024 12:43 PM EDT [facility] RDW 12.3 11.0 - 15.0 % LAB HEMETOLOGY METHOD 07/23/2024 12:43 PM EDT [facility] Platelets 166 130 - 400 K/mcL LAB HEMETOLOGY METHOD 07/23/2024 12:43 PM EDT [facility] MPV 11.5(H) 7.0 - 11.0 FL LAB HEMETOLOGY METHOD 07/23/2024 12:43 PM EDT [facility] NRBC 0.0 <1.0 % LAB HEMETOLOGY METHOD 07/23/2024 12:43 PM EDT [facility] NRBC Absolute 0.00 <0.10 K/mcL LAB HEMETOLOGY METHOD 07/23/2024 12:43 PM EDT [facility] Blood Venous blood specimen / Unknown Venipuncture / Unknown 07/23/2024 10:07 AM EDT 07/23/2024 10:07 AM EDT us Delilah Subramanian [employer] LAB BLOOD ORDERABLES Final Resul t [facility] [address] [place] [address], * (ABNORMAL) Thyroid stimulating hormone (07/23/2024 10:07 AM EDT) TSH 14.79(H) 0.40 - 4.00 mcIU/mL LAB CHEMISTRY METHOD 07/23/2024 2:21 PM EDT [facility] Blood Venous blood specimen / Unknown Venipuncture / Unknown 07/23/2024 10:07 AM EDT 07/23/2024 10:07 AM EDT us Delilah Subramanian [employer] LAB BLOOD ORDERABLES Final Resul t [facility] [address] [place] [address], [place] [phone] * Magnesium (07/23/2024 10:07 AM EDT) [facility] Magnesium 2.1 1.9 - 2.6 mg/dL LAB CHEMISTRY METHOD 07/23/2024 1:32 PM EDT [facility] Blood Venous blood specimen / Unknown Venipuncture / Unknown 07/23/2024 10:07 AM EDT 07/23/2024 10:07 AM EDT us Delilah Subramanian [employer] LAB BLOOD ORDERABLES Final Resul t Performing Organization Address [facility]/ZIP Co de Phone Number [facility] [address] [place] [address], [place] [phone] * (ABNORMAL) Hemoglobin A1c (07/23/2024 10:07 AM EDT) [facility] Hemoglobin A1C 8.5(H) <6.5 % LAB CHEMISTRY METHOD 07/23/2024 9:19 PM EDT [facility] Mean Bld Glu Estim. 197 mg/dL LAB CHEMISTRY METHOD 07/23/2024 9:19 PM EDT [facility] Blood Venous blood specimen / Unknown Venipuncture / Unknown 07/23/2024 10:07 AM EDT 07/23/2024 10:07 AM EDT us Delilah Subramanian [employer] LAB BLOOD ORDERABLES Final Resul t [facility] [address] [place] [address], [place] [phone] * Vitamin B12 (07/23/2024 10:07 AM EDT) [facility] Vitamin B-12 464 250 - 900 pcg/mL LAB CHEMISTRY METHOD 07/23/2024 2:03 PM [facility] Blood Venous blood specimen / Unknown Venipuncture / Unknown 07/23/2024 10:07 AM EDT 07/23/2024 10:07 AM EDT us Delilah Subramanian NP LAB BLOOD ORDERABLES Final Resul t [facility] [address] [place] [address], [place] [phone] * (ABNORMAL) Comprehensive metabolic panel (07/23/2024 10:07 AM EDT) [facility] Sodium 133 133 - 145 mmol/L LAB CHEMISTRY METHOD 07/23/2024 2:03 PM [facility] Potassium 4.0 3.5 - 5.5 mmol/L LAB CHEMISTRY METHOD 07/23/2024 2:03 PM [facility] Chloride 97 96 - 110 mmol/L LAB CHEMISTRY METHOD 07/23/2024 2:03 PM [facility] CO2 29 21 - 32 mmol/L LAB CHEMISTRY METHOD 07/23/2024 2:03 PM [facility] Anion Gap 7 3 - 11 LAB CHEMISTRY METHOD 07/23/2024 2:03 PM [facility] Glucose 155(H) 70 - 100 mg/dL LAB CHEMISTRY METHOD 07/23/2024 2:03 PM [facility] BUN 11 5 - 25 mg/dL LAB CHEMISTRY METHOD 07/23/2024 2:03 PM [facility] Creatinine 0.91 0.70 - 1.30 mg/dL LAB CHEMISTRY METHOD 07/23/2024 2:03 PM [facility] eGFR 100 >=60 mL/min/1. 73m2 LAB CHEMISTRY METHOD 07/23/2024 2:03 PM EDT [facility] Comment:Calculation based on the??Chronic Kidney Disease Epidemiology Collaboration (CKD-EPI) equation refit??without adjustment for race. BUN/Creatinine Ratio 12.1 LAB CHEMISTRY METHOD 07/23/2024 2:03 PM [facility] Calcium 8.9 8.5 - 10.5 mg/dL LAB CHEMISTRY METHOD 07/23/2024 2:03 PM [facility] AST (SGOT) 14 10 - 42 unit/L LAB CHEMISTRY METHOD 07/23/2024 2:03 PM [facility] ALT (SGPT) 21 10 - 60 unit/L LAB CHEMISTRY METHOD 07/23/2024 2:03 PM [facility] Alkaline Phosphatase 79 42 - 121 unit/L LAB CHEMISTRY METHOD 07/23/2024 2:03 PM [facility] Total Protein 7.0 6.0 - 8.0 g/dL LAB CHEMISTRY METHOD 07/23/2024 2:03 PM [facility] Albumin 3.9 3.2 - 5.0 g/dL LAB CHEMISTRY METHOD 07/23/2024 2:03 PM [facility] Total Bilirubin 0.5 0.0 - 1.4 mg/dL LAB CHEMISTRY METHOD 07/23/2024 2:03 PM [facility] Blood Venous blood specimen / Unknown Venipuncture / Unknown 07/23/2024 10:07 AM EDT 07/23/2024 10:07 AM EDT us Delilah Subramanian NP LAB BLOOD ORDERABLES Final Resul t [facility] [address] [place] [address], [place] [phone] * Hepatitis C Screening (06/27/2022) Pathologist [facility] Hepatitis C Screening abstracted us Historical Provider HEALTH MAINTENANCE Final Result from Last 3 Months or Most Recently Relevant to Health Maintenance Insurance [employer] Care Teams Billposter Relationship Specialty Start Date End Date Adán Renee MD [address] [place] [address] [address] [place] [address] PCP - General 01/02/24
== END 2024-08-12 11:14 | disposition home or self-care (01) ==
PROVIDERS: PCP Student in an Organized Health Care Education/Training Program; Referring Provider Student in an Organized Health Care Education/Training Program; Visit Provider Nurse Practitioner Family
DX: G47.33 Obstructive sleep apnea (adult) (pediatric) (principal); G47.34 Idiopathic sleep related nonobstructive alveolar hypoventilation; R06.00 Dyspnea, unspecified
CPT/HCPCS: 99204

== ENCOUNTER → 2024-08-12 09:52 | Outpatient (BNVA) | payer MEDICARE, SELFPAY | PROVIDERS: PCP Student in an Organized Health Care Education/Training Program; Referring Provider Student in an Organized Health Care Education/Training Program; Visit Provider Nurse Practitioner Family | DX: G47.33 Obstructive sleep apnea (adult) (pediatric) (principal); G47.34 Idiopathic sleep related nonobstructive alveolar hypoventilation; R06.00 Dyspnea, unspecified | CPT/HCPCS: 99202 ==

== ENCOUNTER 2024-09-30 12:35 | Outpatient (REF) | payer MEDICARE, SELFPAY ==
--- NOTE | ~2024-09-30 | CT_ITS ---
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 COMPARISON: None FINDINGS: Visualized thyroid is unremarkable. No supraclavicular or axillary lymphadenopathy. Ascending aorta and main pulmonary artery are normal in caliber. No pericardial effusion. Normal esophagus. No mediastinal lymphadenopathy. No pleural effusion. Minimal linear atelectasis versus scarring along the right lung base. Trachea and central airways are clear. No significant bronchial wall thickening. No bronchiectasis. Hepatic steatosis. Mild spondylosis. No acute fracture or suspicious bone lesion. IMPRESSION: 1. No acute findings. No cause for patient's symptoms identified. This document has been electronically signed by: Mahendra Lowery MD on 09/30/2024 15:22:00
--- OUTSIDE RECORDS SUMMARY | 2024-09-30 13:06 | XMS_ITS | Encounter Summary ---
Author Organization [facility] Address [address] [place] [phone] Care Team Providers Care Surface Grinding Machine Hand Name Role Phone Adán Renee MD Primary Care Provider [phone] Reason for Visit * Reason Onset Date Comments Víctor: Medication 08/25/2024 Encounter Details Date Type Department Care Team ([facility] st Contact Info) Description 08/25/2024 Telephone Internal Medicine - [place] 175 [facility] [address] [place] [phone] Adán Renee MD 175 [facility] [address] [place] [address] Víctor: Medication Social History Tobacco Use Types Packs/Day Years [...] file Not on file Not on file documented as of this encounter Progress Notes * Patricia Garcia MA - 09/07/2024 4:24 PM EDT Patient is aware of the message -MS * Delilah Subramanian NP - 09/03/2024 6:07 PM EDT He should be taking vitamin D 1 tablet once daily by mouth. Will continue to monitor vitamin D levels. * Haylie Ram MA - 08/26/2024 2:36 PM EDT Called pt he stated in the past when he picked up his vit D it was 2 tablets daily but now it is 1 tablet daily. Is this correct or should he be taking 2 tablets daily. * Kimmy Alcocer - 08/25/2024 10:07 AM EDT Patient called an because his vitamin D pills instructions were different when he went to go last picker his refill and he would like to know why. Please advise Cb# [phone] documented in this encounter Plan of Treatment Upcoming Encounters Date Type Department Care Team (Late st Contact Info) Description 11/26/2024 10:20 AM EDT Office Visit [facility] [address] [place] [address] Kevin Clement MD [address] [place] [address] [address] [place] [address] 01/25/2025 1:30 PM EDT Office Visit Internal Medicine - [place] 175 [facility] [address] [place] [address] Adán Renee MD [address] [address] documented as of this encounter Visit Diagnoses Not on filedocumented in this encounter Care Teams Surface Grinding Machine Hand Relationship Specialty Start Date End Date Adán Renee MD [address] [address] PCP - General 01/02/24 documented as of this encounter
--- NOTE | 2024-09-30 13:18 | PFT_ITS ---
Flows: FEV1: 77 % of predicted at 2.69 L FVC: 74 % of predicted at 3.32 L FEV1/FVC: 81 % Bronchodilator response: Absent Volumes: Total lung capacity: 69 % of predicted at 4.68 L Residual volume: 70 % of predicted at 1.35 L Slow vital capacity: 68 % of predicted at 3.32 L Expiratory reserve volume: 13 % of predicted at 0.17 L Diffusion capacity: Normal Impression: Moderate restrictive ventilatory defect with no bronchodilator response. Decreased expiratory reserve volume suggests extrathoracic restriction likely secondary to abdominal obesity. MTDD
[2024-09-30 13:52] VITALS: PULSE 91; O2SAT 93
== END 2024-09-30 12:36 | disposition home or self-care (01) ==
LOC: HO.CT 12:35
PROVIDERS: PCP Student in an Organized Health Care Education/Training Program; Visit Provider Nurse Practitioner Family
DX: G47.34 Idiopathic sleep related nonobstructive alveolar hypoventilation (principal); R06.00 Dyspnea, unspecified
CPT/HCPCS: 71250; 94010; 94640; 94727; 94729

== ENCOUNTER → 2024-09-30 12:37 | Outpatient (BNV) | payer MEDICARE, SELFPAY | PROVIDERS: PCP Student in an Organized Health Care Education/Training Program; Visit Provider Radiology Diagnostic Radiology | DX: G47.34 Idiopathic sleep related nonobstructive alveolar hypoventilation (principal) | CPT/HCPCS: 71250 ==

== ENCOUNTER → 2024-09-30 13:18 | Outpatient (BNV) | payer MEDICARE, SELFPAY | PROVIDERS: PCP Student in an Organized Health Care Education/Training Program; Visit Provider Internal Medicine Pulmonary Disease | DX: R06.00 Dyspnea, unspecified (principal); G47.34 Idiopathic sleep related nonobstructive alveolar hypoventilation | CPT/HCPCS: 94060; 94727; 94729 ==

== ENCOUNTER 2024-10-27 14:48 | Outpatient (AMB) | payer MEDICARE, SELFPAY ==
[2024-10-27 14:50] VITALS: BP 110/68; PULSE 102; O2SAT 91; BMI 38.5
--- NOTE | 2024-10-27 14:50 | MHC.OFFVIS ---
Vital Signs 10/27/24 14:50 Height 5 ft 8 in Weight 253 lb 2 oz BMI 38.5 BP 110/68 Blood Pressure Location Rt brachial Position Sitting Pulse 102 H Pulse Source Pulse Oximeter Pulse Oximetry (%) 91 L Oxygen Delivery Method Room Air Intake Visit Reasons: Obstructive sleep apnea Allergies No Known Allergies Allergy (Verified 10/27/24 14:53) HPI HPI Obstructive sleep apnea: Details: Paxton is a pleasant 54 year old male, never smoker, with underlying MELI, Bipolar disorder, HLD, Hypothryoidism and DMII. He was initially referred by PCP for pulmonary evaluation after prior sleep studies revealed mild to moderate MELI with significant nocturnal hypoxemia. He recently underwent repeat in lab titration study through [facility] and has been started on BiPAP therapy with plan to assess for resolution of nocturnal hypoxemia through their office. He has been using a BiPAP machine for two months, which has improved his sleep quality, allowing him to sleep through the night without waking up frequently. He previously reported dyspnea however currently denies any respiratory symptoms. Upon arrival to room patient oxygen saturation 91%. Today he presents to review PFT and chest CT. Of note, he has upcoming evaluation with cardiology through [facility] next month, unclear why he was referred. [facility], [facility] Medical History (Updated 10/28/24 @ 13:30 by Selin Reich NP) Hypothyroidism determined by thyroid function test Anxiety Depression Social History Household Members: Family Housing: House Do you presently have visiting nurse or other home services: No Patient Tobacco Use Status: Never used Tobacco service: No Sexual orientation: Straight/Heterosexual Review of Systems Const Denies chills, Denies excessive sweating, Denies fever(s), Denies headache(s) and Denies night sweats Eyes Denies dry eyes, Denies irritation and Denies itchy eyes ENT Reports Normal hearing present, Denies headache(s), Denies nasal congestion, Denies nasal discharge, Denies post nasal drip and Denies sore throat Card Denies chest pain, Denies chest pain at rest, Denies chest pain with activity, Denies claudication, Denies leg edema, Denies dyspnea, Denies dyspnea on exertion, Denies orthopnea and Denies paroxysmal nocturnal dyspnea Resp Denies chest congestion, Denies cough, Denies excessive phlegm production, Denies pain on inspiration, Denies pain with cough, Denies dyspnea, Denies dyspnea on exertion, Denies stridor and Denies wheezing Musc Denies myalgias Neuro Reports Normal hearing present and Denies headache(s) Endo Denies excessive sweating Eladio/Lymph Denies lymphadenopathy Aller/Immun Denies itchy eyes, Denies seasonal rhinorrhea and Denies wheezing Physical Exam Vital Signs: Last Vital Signs Pulse 102 H 10/27/24 14:50 BP 110/68 10/27/24 14:50 Pulse Ox 91 L 10/27/24 14:50 Oxygen Delivery Method Room Air 10/27/24 14:50 BMI result Body Mass Index 38.5 Const General: cooperative, healthy appearing, comfortable, no acute distress, well developed and alert Nutritional Appearance: obese Orientation/consciousness: patient oriented x3 Limitations: no limitations HEENT Head: Yes normal to inspection, Yes normocephalic and Yes atraumatic Ears: hearing grossly normal bilaterally and external ears normal Eyes General: appearance normal, both eyes and all related structures Eyelids: Yes eyelids normal Sclerae: sclerae normal EOM: EOMs intact bilaterally Neck Neck: Yes normal visual inspection and Yes no lymphadenopathy Lymphatic: no lymphadenopathy noted Chest Chest palpation & inspection: normal inspection of the chest Resp Effort & Inspection: normal respiratory effort, able to speak in complete sentences, no audible wheezes, no cough, no stridor, not tachypneic, no tripod positioning and no use of accessory muscles Auscultation: clear to auscultation bilaterally Cardio Jugular venous distension: no JVD Rate: regular rate Rhythm: regular rhythm Skin Other: warm, dry General skin exam: no rashes or lesions noted Neuro General: patient oriented x3 Cranial nerves: Yes Normal hearing present Cognition (Neuro): normal cognition Gait exam (Neuro): Normal gait present Extrem General: Yes normal to inspection, Yes capillary refill normal, Yes no clubbing, cyanosis or edema and Yes no pedal edema Psych Appearance: grossly normal and well kempt Speech and movement: Normal speech and movement present and Clear speech present Affect: Blunted affect present Attitude: cooperative Thought process: Normal thought process present Thought content: Normal thought content present Insight: Good insight present (Psych) Judgement: Good judgement present (Psych) Office Procedures 6 Minute Walk Time:: 15:11 SPO2 % at rest: 94 Pulse at rest: 97 SPO2 % during excercise: 90 Pulse during excercise: 126 SPO2 % after excercise: 91 Pulse after excercise: 118 Distance in yards walked: 75 Performance Observations:: Patient walked on level ground without assistance. Patient maintained O2 saturation of 90-93% for the entirety of the walk with pulse rate from 97-126. Denies shortness of breath. Patient did not require supplemental oxygen. [id number] - 6 Minute Walk Results Reviewed Results Reviewed: [address] [address] [address] Scan Report Signed Patient: Paxton Giles MR#: [id number] : 1970 Acct:[id number] Age/Sex: 53 / M ADM Date: 09/30/24 Loc: HO.CT Attending Dr: Selin Reich NP Ordering Physician: Selin Reich NP Date of Service: 09/30/24 Procedure(s): CT chest wo IV con Accession Number(s): [id number] cc: Adán Renee MD; Selin Reich [employer]~ Report Number: [id number]: Total DLP = 263.00 mGy-cm 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 COMPARISON: None FINDINGS: Visualized thyroid is unremarkable. No supraclavicular or axillary lymphadenopathy. Ascending aorta and main pulmonary artery are normal in caliber. No pericardial effusion. Normal esophagus. No mediastinal lymphadenopathy. No pleural effusion. Minimal linear atelectasis versus scarring along the right lung base. Trachea and central airways are clear. No significant bronchial wall thickening. No bronchiectasis. Hepatic steatosis. Mild spondylosis. No acute fracture or suspicious bone lesion. IMPRESSION: 1. No acute findings. No cause for patient's symptoms identified. 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 Chest CT was ordered to assess for any underlying parenchymal condition contributing to nocturnal hypoxia, however unremarkable. PFT revealed moderate restrictive defect, with normal DLCO. Discussed importance of weight loss. 6MWT performed and patient does not meet criteria for supplemental oxygen at this time. The lowest his oxygen saturation was 90% however patient became tachy 120s with exertion. There may be a cardiac component contributing to symptoms and has an evaluation with [facility] next week. All questions were answered and patient is in agreement of plan. Will follow up in 6 months or sooner if needed. Orders: Orders AMB 6 minute walk 10/27/24 R06.00 - Dyspnea, unspecified Coding Level of Care Code Est Pt Level 4 (86545) Diagnoses Moderate obstructive sleep apnea G47.33 Nocturnal hypoxemia G47.34 Restrictive ventilatory defect R94.2 CPT Codes Coding ([id number])
[2024-10-27 15:26] VITALS: PULSE 97; O2SAT 94
--- OUTSIDE RECORDS SUMMARY | 2024-10-27 15:46 | XMS_ITS | Encounter Summary ---
Author Organization [facility] Address [address] [place] [id number] Care Team Providers Care Joist Setter Name Role Phone Adán Renee MD Primary Care Provider [phone] Reason for Visit * Reason Onset Date Comments Víctor: CT results 10/05/2024 Encounter Details Date Type Department Care Team ([facility] st Contact Info) Description 10/05/2024 Telephone Internal Medicine - [place] [address] [phone] Adán Renee MD [address] [address] Víctor: CT results Social History Tobacco Use Types Packs/Day Years [...] as of this encounter Progress Notes * Amy Doan MA - 10/07/2024 9:53 AM EDT Returned call , informed patient . * Alicia Brewer - 10/07/2024 9:45 AM EDT Pt is cb * Amy Doan MA - 10/06/2024 3:47 PM EDT 10/06 [facility] tp return call regarding CT results. * Adán Renee MD - 10/06/2024 3:[address] scan reviewed. No significant abnormality * Haylie Ram MA - 10/05/2024 3:45 PM EDT Please review ct scan. Results were scanned and are under media tab for 09/30/24. * Kimmy Alcocer - 10/05/2024 1:21 PM EDT Patient called and requested a call back because he would like to know the results of chest CT he got done in [facility] on 09/30. (Pt stated he was not in er) Please advise Cb# [phone] documented in this encounter Plan of Treatment Upcoming Encounters Date Type Department Care Team (Late st Contact Info) Description 11/26/2024 10:20 AM EDT Office Visit [facility] [address] [place] [phone] Kevin Clement MD [address] [place] [address] [address] [place] [address] 01/25/2025 1:30 PM EDT Office Visit Internal Medicine - [place] [address] [place] [phone] Adán Renee MD [address] [address] 02/10/2025 11:30 AM EDT Nutrition Internal Medicine - [place] [address] [phone] Annabel Sears, SHELIA [address] [place] [phone] documented as of this encounter Visit Diagnoses Not on filedocumented in this encounter Care Teams Joist Setter Relationship Specialty Start Date End Date Adán Renee MD [address] [address] PCP - General 01/02/24 documented as of this encounter
== END 2024-10-27 15:20 | disposition home or self-care (01) ==
LOC: HO.HPSW 14:48
PROVIDERS: PCP Student in an Organized Health Care Education/Training Program; Visit Provider Nurse Practitioner Family
DX: G47.33 Obstructive sleep apnea (adult) (pediatric) (principal); G47.34 Idiopathic sleep related nonobstructive alveolar hypoventilation; R94.2 Abnormal results of pulmonary function studies
CPT/HCPCS: 99214

== ENCOUNTER → 2024-10-27 14:48 | Outpatient (BNVA) | payer MEDICARE, SELFPAY | PROVIDERS: PCP Student in an Organized Health Care Education/Training Program; Visit Provider Nurse Practitioner Family | DX: G47.33 Obstructive sleep apnea (adult) (pediatric) (principal); G47.34 Idiopathic sleep related nonobstructive alveolar hypoventilation; R94.2 Abnormal results of pulmonary function studies | CPT/HCPCS: 99212 ==

== ENCOUNTER 2024-12-15 08:52 | Outpatient (REF) | payer MEDICARE, SELFPAY ==
[2024-12-15 09:16] LABS: MANUAL DIFF FLAG NO
[2024-12-15 09:30] LABS: Hematocrit 42.9 % (42.0-52.0); Hemoglobin 15.1 g/dl (14.0-18.0); Imm Gran Abs Auto 0.23 X10*3/uL (0.00-0.03); Imm Gran Pct Auto 3.7 % (0.0-0.4); Lymphocytes Absolute Auto 1.7 X10*3/uL (1.2-4.9); Mean Corpuscular HGB Conc 35.2 g/dl (31.0-36.0); Mean Corpuscular Hemoglobin 31.3 pg (27.0-33.0); Mean Corpuscular Volume 88.8 fL (80.0-98.0); NRBC Abs Auto 0.000 X10*3/uL (0.0-0.012); NRBC Pct Auto 0.0 /100WBC (0.0-0.2); Platelet Count 166 X10*3/uL (160-400); Red Blood Count 4.83 X10*6/uL (4.60-5.80); White Blood Count 6.2 X10*3/uL (4.8-10.8)
[2024-12-15 10:02] LABS: Alanine Aminotransferase 23 U/L (0-40); Albumin Level 4.6 g/dL (3.5-5.0); Alkaline Phosphatase 67 U/L (39-117); Anion Gap 14 (12-20); Aspartate Amino Transferase 23 U/L (5-37); Carbon Dioxide 29 mmol/L (22-29); Chloride 96 mmol/L (96-108); Cholesterol 179 mg/dL (<200); HDL Cholesterol 37 mg/dL (>40); Potassium 4.2 mmol/L (3.3-5.1); Sodium 135 mmol/L (135-145); Total Protein 6.9 g/dL (6.5-8.0); Triglycerides 217 mg/dL (<150)
== END 2024-12-15 08:53 | disposition home or self-care (01) ==
LOC: HO.LAB 08:52
PROVIDERS: PCP Student in an Organized Health Care Education/Training Program; Visit Provider Psychiatry & Neurology Psychiatry
DX: Z79.899 Other long term (current) drug therapy (principal)
CPT/HCPCS: 36415; 80051; 80061; 80076; 80164; 85025

== ENCOUNTER 2025-03-04 08:18 | Outpatient (REF) | payer MEDICARE, SELFPAY ==
--- OUTSIDE RECORDS SUMMARY | 2025-03-04 08:39 | XMS_ITS | Clinical Summary ---
Author Organization 175 [facility] Address [address] [place] [address] Phone Care Team Providers Care Associate Professor Of Chemistry Name Role Phone Adán Renee MD Primary Care Provider Allergies No known active allergies Medications risperiDONE (RisperDAL) 2 mg tablet Take 1 tablet (2 mg total) by mouth 1 (one) time each day. 11/04/19 24 Active venlafaxine XR (EFFEXOR-XR) 150 mg 24 hr capsule Take 1 capsule (150 mg total) by mouth 1 (one) time each day. 10/16/19 24 Active divalproex (DEPAKOTE) [address] tablet [...] mg total) by mouth at bedtime. Active lancets lancetsIndicat ions:Controlle d type 2 diabetes mellitus without complication, without long-term current use of insulin ([facility] V24, CMS/[facility] V28) Check blood sugar daily as directed. 200 each 11 07/23/19 25 026 Active blood-glucose meter miscIndication s:Controlled type 2 diabetes mellitus without complication, without long-term current use of insulin ([facility] V24, [facility] V28) Use daily or as directed for monitoring of diabetes. 1 each 07/23/19 25 Active glucose blood test stripIndicatio ns:Controlled type 2 diabetes mellitus without complication, without long-term current use of insulin ([facility] V24, [facility] V28) Use as instructed 100 each 07/23/19 25 026 Active cholecalcifero l (VITAMIN D-3) 125 mcg (5,000 unit) capsuleIndicat ions:Vitamin D deficiency Take 1 capsule (5,000 Units total) by mouth 1 (one) time each day. 180 capsule 4 08/20/19 25 Active aspirin 81 mg EC tablet Take 1 tablet (81 mg total) by mouth 1 (one) time each day. 90 each 01/26/20 25 Active metFORMIN XR (GLUCOPHAGE-XR ) 500 mg 24 hr tabletIndicati ons:Type 2 diabetes mellitus without complication, without long-term current use of insulin ([facility] V24, [facility] V28) Take 1 tablet (500 mg total) by mouth 2 (two) times daily after breakfast and dinner. Do not crush, chew, or split. 180 each 1 01/27/20 25 026 Active levothyroxine (SYNTHROID, LEVOTHROID) 150 mcg tablet TAKE 1 TABLET BY MOUTH 1 TIME EACH DAY. 90 tablet 4 02/19/20 25 Active pioglitazone (ACTOS) 30 mg tablet TAKE 1 TABLET BY MOUTH 1 TIME EACH DAY. 90 tablet 4 02/19/20 25 Active atorvastatin (LIPITOR) 20 mg tablet TAKE 1 TABLET (20 MG TOTAL) BY MOUTH ONE TIME EACH DAY 90 tablet 3 02/24/20 25 Active atorvastatin (LIPITOR) 20 mg tablet Take 1 tablet (20 mg total) by mouth 1 (one) time each day. 30 each 03/30/20 24 025 Discontinued levothyroxine (SYNTHROID, LEVOTHROID) 150 mcg tablet Take 1 tablet (150 mcg total) by mouth 1 (one) time each day. 30 each 11 09/30 025 Discontinued pioglitazone (Actos) 30 mg tablet Take 1 tablet (30 mg total) by mouth 1 (one) time each day. 30 each 01/27/20 025 Discontinued Active Problems Problem Noted Date Diagnosed Date Coronary artery calcification 11/26/2024 Assessment & Plan (11/26/2024 11:11 AM EDT): The patient was found to have trace coronary artery calcifications on a chest CTA done at [facility] in September 2023. The patient is already on statin therapy with atorvastatin and his cholesterol is adequately controlled. On today's visit, he denies any anginal symptoms. As such, no indication for stress test at this point. We recommend to continue medical therapy with atorvastatin for treatment of his hyperlipidemia and also aggressive treatment of the patient's diabetes mellitus. Orders: Transthoracic echocardiogram (TTE) complete with PRN contrast, bubble, strain, and 3D order panel; Future perflutren lipid microsphere (DEFINITY) 1.3 mL in sodium chloride 0.9% 8.7 mL injection Cardiomegaly 11/26/2024 Assessment & Plan (11/26/2024 11:11 AM EDT): The patient underwent a chest CT at [facility] in September 2023. The chest CTA showed a prominent size heart which is suggestive of cardiomegaly. Of note, the RV/LV ratio was noted to be normal. At this point, we will proceed with an echocardiogram to rule out any significant structural heart disease that may be related to the priorly noted cardiomegaly. Orders: Transthoracic echocardiogram (TTE) complete with PRN contrast, bubble, strain, and 3D order panel; Future Hypoxemia 11/25/2024 Assessment & Plan (11/26/2024 11:11 AM EDT): The patient was noted to have hypoxemia during a sleep study done in February 2024. Since then, the patient states that he establish care with a clinic administrator in [place]. The patient does not remember the name of the clinic administrator. Records are not available for me to review at this point. Nevertheless, the patient states that he was told that he does not need any supplemental oxygen. Hypoxemia may be secondary to obesity hypoventilation syndrome/sleep apnea or an intrinsic pulmonary disorder. The patient was advised to continue to follow-up with his clinic administrator regarding his hypoxemia. From a cardiac standpoint, we will proceed with an echocardiogram to rule out any intracardiac shunts that may be contributing to his apparent hypoxemia. Orders: Ambulatory referral to Cardiology ECG 12 lead Transthoracic echocardiogram (TTE) complete with PRN contrast, bubble, strain, and 3D order panel; Future perflutren lipid microsphere (DEFINITY) 1.3 mL in sodium chloride 0.9% 8.7 mL injection Sleep apnea 11/25/2024 Hyperlipemia 06/28/2022 Overview (04/07/2024): [facility] 6% 07/19 Low libido 04/17/2021 Testosterone deficiency 10/12/2020 Overview (04/07/2024): [facility] Erectile dysfunction 05/15/2020 Overview (04/07/2024): [facility] Diabetes type 2, controlled ([facility] V24, CMS/[facility] C V28) 11/03/2015 Bipolar 1 disorder, depressed ([facility] V24, [facility] V28) 10/07/2015 Overview (04/07/2024): ECT Hypothyroidism 04/19/2008 Encounters Date Type Department Care Team Description 02/03/2025 Telephone [facility] [address] [place] [phone] Kevin Clement MD 01/28/2025 11:00 AM EDT Ancillary Procedure [facility] [address] [place] [phone] Hypoxemia; Coronary artery calcification; Cardiomegaly 01/26/2025 Results Follow-Up Internal Medicine [facility] [address] [place] [phone] Adán Renee MD 01/25/2025 1:30 PM EDT Office Visit Internal Medicine - [place] [address] [place] [address] Adán Renee MD Obstructive sleep apnea syndrome (Primary Dx); Controlled type 2 diabetes mellitus without complication, without long-term current use of insulin ([facility] V24, [facility] V28); Hypothyroidism, unspecified type; Mixed hyperlipidemia; Coronary artery calcification from Last 3 Months Immunizations Immunization Administration Dates Next Due Influenza Quadravalent, MDCK [...] drink = 0.6 oz pur e alcohol) Housing Instability Answer Date Recorde d Are you worried that in the next 2 months you may not have stable housing? No 01/19/2025 Food Access & Nutrition Answer Date Rec orded Do you have access to a vari ety of food including fruits and vegetables? No 01/19/2025 Access to Healthcare Answer Date Record ed Within the last 3 months, ho w many times did you visit the emergency department for your medical care? 0 01/19/2025 Health Literacy Answer Date Recorded How often do you need to hav e someone help you when you read instructions, pamphlets, or other written material from your doctor or pharmacy? Rarely 01/19/2025 Caregiver: How often do you need to have someone help you when you read instructions, pamphlets, or other written material from your doctor or pharmacy? Not on file 01/19/2025 Financial Risk Answer Date Recorded How hard is it for you to pa y for the very basics like food, housing, medical care, and air conditioning / heating? Somewhat hard 01/19/2025 Transportation Answer Date Recorded Has the lack of transportati on kept you from meetings, work, or from getting things needed for daily living? No Has the lack of transportati on kept you from medical appointments or from getting medications? No 01/19/2025 Social Isolation Answer Date Recorded How often do you feel lonely or isolated from th ose around you? Rarely 01/19/2025 Food Risk Answer Date Recorded Within the past 12 months we worried whether our food would run out before we got money to buy more. Never true 01/19/2025 Within the past 12 months th e food we bought just didn't last and we didn't have money to get more. Never true 01/19/2025 Dependent Care Answer Date Recorded Do you need help finding or paying for care for your loved ones. For example, child psychologist or elderly care for an older adult? No 01/19/2025 Education Answer Date Recorded Do you think completing more education or training, like finishing a GED, going to college, or learning a trade, would be helpful for you? No 01/19/2025 Employment and Income Answer Date Recor ded During the last four weeks, have you been actively looking for work? No 01/19/2025 Living Situation Answer Date Recorded What is your living situation? Unrecognized valu e 01/19/2025 Sex and Gender Information Value Date Recorded [...] Sign Reading Time Taken Comments Blood Pressure 143/92 01/28/2025 11:01 AM EDT Pulse 110 01/25/2025 1:17 PM EDT Temperature 36.2 C (97.1 F) 01/25/2025 1:17 PM EDT Respiratory Rate - - Oxygen Saturation 94% 01/25/2025 1:17 PM EDT Inhaled Oxygen Concentration - - Weight 114 kg (252 lb) 01/28/2025 11:01 AM EDT Height 172.7 cm (5' 8 ) 01/28/2025 11:01 AM EDT Body Mass Index 38.32 01/28/2025 11:01 AM EDT Plan of Treatment Upcoming Encounters Date Type Department Care Team (Late st Contact Info) Description 07/28/2025 1:45 PM EDT Office Visit Internal Medicine - [address] [place] [address] Adán Renee MD [address] [place] [phone] Health Maintenance Due Date Last Done Comments Colorectal Cancer Screening: Colonoscopy 1968 Diabetes: Annual Foot Exam 1978 Diabetes: Annual Retina Eye Exam 1978 Hepatitis B Vaccines (1 of 3 - 19+ 3-dose series) 10/18/1987 Pneumococcal Vaccine: 50+ Years (1 of 2 - PCV) 10/18/1987 HIV Screening 04/07/2022 Medicare Annual Wellness Visit 04/07/2022 Diabetes: Annual GFR (Glomerular Filtration Rate) 07/23/2025 07/23/2024, 01/21/2024, 01/21/2024, Additional history exists Hypertension/CHF/CAD Annual BMP Blood Test 07/23/2025 07/23/2024, 01/21/2024, 01/21/2024, Additional history exists Diabetes: Blood Sugar Control Test (HGBA1C) 07/25/2025 01/25/2025, 07/23/2024, 01/21/2024, Additional history exists Diabetes: Annual Urine Albumin-Creatinine Ratio (uACR) 07/27/2025 07/27/2024 Social Influencers of Health Screening 01/19/2026 01/19/2025 DTaP,Tdap,and Td Vaccines (3 - Td or Tdap) 09/10/2028 09/10/2018, 04/19/2008 Cholesterol Screening (Lipid Panel) 07/23/2029 07/23/2024, 01/21/2024, 01/21/2024, Additional history exists RSV Immunization Adult Patients (1 - 1-dose 75+ series) 10/18/2043 Hepatitis C Screening Completed 06/27/2022 Zoster Vaccines Completed 09/17/2022, 11/23/2021 COVID-19 Vaccine Completed 01/05/2025, , 01/31/2023, Additional history exists Influenza Vaccine Completed 01/05/2025, , 01/31/2023, Additional history exists Depression Screening Completed 01/19/2025 HIB Vaccines Aged Out No longer eligi [...] Procedure Name Priority Date/Time Associated Diagnosis Comments TRANSTHORACIC ECHOCARDIOGRAM (TTE) COMPLETE Routine 01/28/2025 11:22 AM EDT Hypoxemia Coronary artery calcification Cardiomegaly TRIIODOTHYRONINE FREE Routine 01/25/2025 2:01 PM EDT Hypothyroidism, unspecified type FREE THYROXINE WITH REFLEX TO FREE TRIIODOTHYRONINE Routine 01/25/2025 2:01 PM EDT Hypothyroidism, unspecified type THYROID STIMULATING HORMONE WITH REFLEX TO FREE T4 AND FREE T3 Routine 01/25/2025 2:01 PM EDT Hypothyroidism, unspecified type HEMOGLOBIN A1C Routine 01/25/2025 2:01 PM EDT Controlled type 2 diabetes mellitus without complication, without long-term current use of insulin (CMS/HCC V24, CMS/HCC V28) MICROALBUMIN CREATININE URINE RATIO Routine 07/27/2024 2:10 PM EDT Controlled type 2 diabetes mellitus without complication, without long-term current use of insulin (CMS/HCC V24, CMS/HCC V28) COMPREHENSIVE METABOLIC PANEL Routine 07/23/2024 10:07 AM EDT Routine adult health maintenance LIPID PANEL WITH REFLEX TO DIRECT LDL Routine 07/23/2024 10:07 AM EDT Routine adult health maintenance HEPATITIS C SCREENING Routine 06/27/2022 from Last 3 Months or Most Recently Relevant to Health Maintenance Results * (ABNORMAL) TRANSTHORACIC ECHOCARDIOGRAM (TTE) COMPLETE (01/28/2025 11:22 AM EDT) Left Atrium Minor [place] 5.5 cm CV PACS Left Atrium Major [place] 5.4 cm CV PACS LA Area Sys (A2C) 21 cm2 CV PACS LA Area Sys (A4C) 18 cm2 CV PACS LA Volume (BP) 54 mL CV PACS LA Size 3.9 cm CV PACS RA Area 10.9 cm2 CV PACS RA 2D Volume 20 mL CV PACS AV Mean Gradient 3 mmHg CV PACS AV Mean Gradient 3 mmHg CV PACS Ao VTI 21.5 cm CV PACS AV Peak Alfredo 1.1 m/s CV PACS AV Peak Alfredo 1.1 m/s CV PACS AV Peak Gradient 5 mmHg CV PACS AV Area Continuity Equation 3.4 cm2 CV PACS AV Area Peak Velocity 3.6 cm2 CV PACS Aortic Arch 2.8 cm CV PACS Ascending Aorta 4.0 cm CV PACS IVC Proximal 2.1 cm CV PACS IVSD 1.2(A) 0.6 - 1.0 cm CV PACS LVIDD 4.9 4.2 - 5.8 cm CV PACS LVIDS 3.3 2.5 - 4.0 cm CV PACS LVOT Diameter 2.3 cm CV PACS LVOT Mean Alfredo 0.6 m/s CV PACS LVOT Mean Grad 2 mmHg CV PACS LVOT Mean Grad 2 mmHg CV PACS LVOT Peak VTI 17.8 cm CV PACS LVOT Peak Alfredo 1.0 m/s CV PACS LVOT Peak Gradient 4 mmHg CV PACS LVPWD 1.2(A) 0.6 - 1.0 cm CV PACS MV E' Tissue Velocity Lateral 7 cm/s CV PACS MV E' Tissue Velocity Septal 6 cm/s CV PACS LVOT Area 4.2 cm2 CV PACS LVOT Stroke Volume 74 mL CV PACS MV Deceleration [place] 3.0 m/s2 CV PACS E Wave Deceleration Time 176 119 - 242 ms CV PACS MV PHT 52 ms CV PACS MV Peak A Alfredo 0.58 m/s CV PACS MV Peak E Alfredo 0.56 m/s CV PACS MV Mean Gradient 1 mmHg CV PACS MV Mean Gradient 1 mmHg CV PACS MV Mean Gradient 1 mmHg CV PACS MV Mean Gradient 1 mmHg CV PACS MV VTI 21.3 cm CV PACS Mitral Valve Max Velocity 0.9 m/s CV PACS Mitral Valve Max Velocity 0.9 m/s CV PACS MV Peak Gradient 3 mmHg CV PACS MV Area PHT 4.2 cm2 CV PACS MV Area Continuity Equation 3.5 cm2 CV PACS PV Acceleration Time 85 ms CV PACS PV Acceleration Time 106 ms CV PACS PV Acceleration Time 96 ms CV PACS PV Mean Gradient 1 mmHg CV PACS PV VTI 11.1 cm CV PACS PV Peak Velocity 0.7 m/s CV PACS PV Peak Gradient 2 mmHg CV PACS RV Diastolic Basal Dimension 3.5 2.5 - 4.1 cm CV PACS RV S' 9 cm/s CV PACS TAPSE 20 mm CV PACS TR Peak Velocity 2.16 m/s CV PACS TR Peak Gradient 19 mmHg CV PACS E/E' Ratio Septal 9 CV PACS E/E' Ratio Averaged 9 CV PACS LVOT Stroke Index 33 mL/m2 CV PACS LA Dimension Index 2D 1.7 cm/m2 CV PACS Relative Wall Thickness ratio 0.49 CV PACS LVOT:AV VTI Index 0.83 CV PACS FS 33 % CV PACS LV Mass 2D 226 g CV PACS Ascending Aorta Index 1.78 cm/m2 CV PACS MV VTI:LVOT VTI ratio 1.2 CV PACS LVOT flow 249 mL/s CV PACS RA 2D Volume Index 9 mL/m2 CV PACS JULIA Index (VTI) 1.53 cm2/m2 CV PACS JULIA Index (Pk Alfredo) 1.60 cm2/m2 CV PACS LVIDD Index 2.18 cm/m2 CV PACS LVIDS Index 1.47 cm/m2 CV PACS E/A Ratio 1.0 CV PACS E/E' Ratio Lateral 8 CV PACS LA Volume Index (BP) 24 mL/m2 CV PACS LV Mass Index 2D 101 g/m2 CV PACS BSA 2.34 m2 CV PACS Right Ventricular Peak Systolic Pressure 27 mmHg CV PACS Est. RA Pressure 8 mmHg CV PACS LA/Ao Ratio 0.9 CV PACS Aortic Root 4.2 cm CV PACS Aortic Root Index 1.87 cm/m2 CV PACS Anatomical Region Laterality Modality Ultrasound Narrative 02/05/2025 11:03 AM EDT Left ventricle cavity size is normal. Left ventricular systolic function is in the normal range with an ejection fraction of 60-65%. No regional LV wall motion abnormalities noted. Left ventricle mild concentric hypertrophy. Right ventricle cavity is normal. Right ventricular systolic function is normal. No significant valvular disease Aorta: The ascending aorta is mildly dilated (4.0 cm). Left Ventricle Left ventricle cavity size is normal. There is mild concentric hypertrophy. Systolic function is normal with an ejection fraction of 60-65%. There are no regional LV wall motion abnormalities. There is no diastolic dysfunction. Right Ventricle Right ventricle cavity appears normal. Systolic function is normal. Left Atrium Left atrium cavity size is normal. Right Atrium Right atrium cavity is normal. IVC/SVC Inferior vena cava structure is normal. RA pressures is estimated to be 3 mmHg (IVC diameter <21 mm and decreases >50% during inspiration). Mitral Valve The leaflets are mildly thickened. There is mild annular calcification. There is trace regurgitation. There is no evidence of mitral valve stenosis. Tricuspid Valve Tricuspid valve structure is normal. There is no significant regurgitation. There is no evidence of tricuspid valve stenosis. The right ventricular systolic pressure is normal. Aortic Valve The aortic valve is trileaflet. The leaflets are mildly thickened. There is no regurgitation or stenosis. Pulmonic Valve There is no regurgitation or stenosis. Ascending Aorta The ascending aorta is mildly dilated (4.0 cm). Pericardium Pericardium appears normal. There is no pericardial effusion. Study Details Overall the study quality was adequate. Kevin Clement MD CV ECHO PROCEDURES Fin al Result * (ABNORMAL) Thyroid stimulating hormone with reflex to free t4 and free t3 (01/25/2025 2:01 PM EDT) Pathologist [facility] TSH 9.34(H) 0.40 - 4.00 mcIU/mL LAB CHEMISTRY METHOD 01/25/2025 6:45 PM EDT [facility] Blood Venous blood specimen / Unknown Venipuncture / Unknown 01/25/2025 2:01 PM EDT 01/25/2025 2:01 PM EDT Adán Renee MD LAB BLOOD ORDERABLES Final Resul t [facility] [address] [place] [address], [place] [phone] * Free thyroxine with reflex to free triiodothyronine (01/25/2025 2:01 PM EDT) Free T4 1.17 0.70 - 1.80 ng/dL LAB CHEMISTRY METHOD 01/25/2025 7:51 PM EDT [facility] Blood Venous blood specimen / Unknown Venipuncture / Unknown 01/25/2025 2:01 PM EDT 01/25/2025 2:01 PM EDT Adán Renee MD LAB BLOOD ORDERABLES Final Resul t Performing Organization Address City/[facility]/ZIP Co de Phone Number [facility] [address] [place] [address], [place] [phone] * Triiodothyronine free (01/25/2025 2:01 PM EDT) Pathologist [facility] T3, Free 267 230 - 420 pcg/dL LAB CHEMISTRY METHOD 01/25/2025 9:26 PM EDT [facility] Blood Venous blood specimen / Unknown Venipuncture / Unknown 01/25/2025 2:01 PM EDT 01/25/2025 2:01 PM EDT Adán Renee MD LAB BLOOD ORDERABLES Final Resul t Performing Organization Address [facility] Co de Phone Number [facility] [address] [place] [address], [place] [phone] * (ABNORMAL) Hemoglobin A1c (01/25/2025 2:01 PM EDT) [facility] Hemoglobin A1C 8.4(H) <6.5 % LAB CHEMISTRY METHOD 01/26/2025 8:50 AM EDT [facility] Mean Bld Glu Estim. 194 mg/dL LAB CHEMISTRY METHOD 01/26/2025 8:50 AM EDT [facility] Blood Venous blood specimen / Unknown Venipuncture / Unknown 01/25/2025 2:01 PM EDT 01/25/2025 2:01 PM EDT Adán Renee MD LAB BLOOD ORDERABLES Final Resul t Performing Organization Address City/[facility]/ZIP Co de Phone Number [facility] [address] [place] [address], [place] [phone] * (ABNORMAL) Microalbumin creatinine urine ratio (07/27/2024 2:10 PM EDT) Creatinine, Urine 200.0 mg/dL LAB CHEMISTRY METHOD 07/27/2024 4:43 PM EDT [facility] Microalb, Ur 248.0(H) 0.0 - 29.0 mg/L LAB CHEMISTRY METHOD 07/27/2024 4:43 PM EDT [facility] Microalb/Crea t Ratio 124(H) <30 mg/g creat LAB CHEMISTRY METHOD 07/27/2024 4:43 PM EDT [facility] Urine Urine specimen obtained by clean catch procedure / Unknown Non-blood Collection / Unknown 07/27/2024 2:10 PM EDT 07/27/2024 2:10 PM EDT us Delilah Subramanian NP LAB URINE ORDERABLES Final Resul t [facility] [address] [place] [address], [place] [phone] * (ABNORMAL) Lipid panel with reflex to direct LDL (07/23/2024 10:07 AM EDT) Cholesterol 163 0 - 200 mg/dL LAB CHEMISTRY METHOD 07/23/2024 2:03 PM EDT [facility] Triglycerides 196(H) 0 - 150 mg/dL LAB CHEMISTRY METHOD 07/23/2024 2:03 PM EDT [facility] HDL 40 >=40 mg/dL LAB CHEMISTRY METHOD 07/23/2024 2:03 PM EDT [facility] LDL Calculated 84 0 - 100 mg/dL LAB CHEMISTRY METHOD 07/23/2024 2:03 PM EDT [facility] VLDL Cholesterol Esdras 39.2 mg/dL LAB CHEMISTRY METHOD 07/23/2024 2:03 PM EDT [facility] Non HDL Chol. (LDL+VLDL) 123 <145 mg/dL LAB CHEMISTRY METHOD 07/23/2024 2:03 PM [facility] Chol/HDL Ratio 4.1 0.0 - 4.4 LAB CHEMISTRY METHOD 07/23/2024 2:03 PM [facility] Blood Venous blood specimen / Unknown Venipuncture / Unknown 07/23/2024 10:07 AM EDT 07/23/2024 10:07 AM EDT us Delilah Subramanian NP LAB BLOOD ORDERABLES Final Resul t [facility] [address] [place] [address], [place] [phone] * (ABNORMAL) Comprehensive metabolic panel (07/23/2024 10:07 AM EDT) Sodium 133 133 - 145 mmol/L LAB CHEMISTRY METHOD 07/23/2024 2:03 PM [facility] Potassium 4.0 3.5 - 5.5 mmol/L LAB CHEMISTRY METHOD 07/23/2024 2:03 PM [facility] Chloride 97 96 - 110 mmol/L LAB CHEMISTRY METHOD 07/23/2024 2:03 PM [facility] CO2 29 21 - 32 mmol/L LAB CHEMISTRY METHOD 07/23/2024 2:03 PM [facility] Anion Gap 7 3 - 11 LAB CHEMISTRY METHOD 07/23/2024 2:03 PM [facility] Glucose 155(H) 70 - 100 mg/dL LAB CHEMISTRY METHOD 07/23/2024 2:03 PM [facility] BUN 11 5 - 25 mg/dL LAB CHEMISTRY METHOD 07/23/2024 2:03 PM [facility] Creatinine 0.91 0.70 - 1.30 mg/dL LAB CHEMISTRY METHOD 07/23/2024 2:03 PM [facility] eGFR 100 >=60 mL/min/1. 73m2 LAB CHEMISTRY METHOD 07/23/2024 2:03 PM [facility] Comment:Calculation based on the Chronic Kidney Disease Epidemiology Collaboration (CKD-EPI) equation refit without adjustment for race. BUN/Creatinine Ratio 12.1 LAB CHEMISTRY METHOD 07/23/2024 2:03 PM [facility] Calcium 8.9 8.5 - 10.5 mg/dL LAB CHEMISTRY METHOD 07/23/2024 2:03 PM [facility] AST (SGOT) 14 10 - 42 unit/L LAB CHEMISTRY METHOD 07/23/2024 2:03 PM [facility] ALT (SGPT) 21 10 - 60 unit/L LAB CHEMISTRY METHOD 07/23/2024 2:03 PM [facility] Alkaline Phosphatase 79 42 - 121 unit/L LAB CHEMISTRY METHOD 07/23/2024 2:03 PM [facility] Total Protein 7.0 6.0 - 8.0 g/dL LAB CHEMISTRY METHOD 07/23/2024 2:03 PM [facility] Albumin 3.9 3.2 - 5.0 g/dL LAB CHEMISTRY METHOD 07/23/2024 2:03 PM [facility] Total Bilirubin 0.5 0.0 - 1.4 mg/dL LAB CHEMISTRY METHOD 07/23/2024 2:03 PM [facility] Blood Venous blood specimen / Unknown Venipuncture / Unknown 07/23/2024 10:07 AM EDT 07/23/2024 10:07 AM EDT us Delilah Subramanian NP LAB BLOOD ORDERABLES Final Resul t [facility] [address] [place] [address], * Hepatitis C Screening (06/27/2022) Hepatitis C Screening abstracted Historical Provider HEALTH MAINTENANCE Final Result from Last 3 Months or Most Recently Relevant to Health Maintenance Insurance [employer] Care Teams Associate Professor Of Chemistry Relationship Specialty Start Date End Date Adán Renee MD [address] [place] [phone] PCP - General 01/02/24
--- OUTSIDE RECORDS SUMMARY | 2025-03-04 08:39 | XMS_ITS | Encounter Summary ---
Author Organization [facility] Address [address] [place] [address] Care Team Providers Care Secretary Specialist Name Role Phone Adán Renee MD Primary Care Provider [phone] Encounter Details Date Type Department Care Team ([facility] st Contact Info) Description 01/26/2025 Results Follow-Up Internal Medicine - [place] [address] [facility] [address] [place] [id number] Adán Renee MD [address] [place] [phone] Social History Tobacco Use Types Packs/Day Years [...] for your loved ones. 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 [...] on file documented as of this encounter Ordered Prescriptions Prescription Sig Dispense Quantity Refills Last Filled Start Date End Date metFORMIN XR (GLUCOPHAGE-XR) 500 mg 24 hr tabletIndications: Type 2 diabetes mellitus without complication, without long-term current use of insulin ([facility] V24, [facility] V28) Take 1 tablet (500 mg total) by mouth 2 (two) times daily after breakfast and dinner. Do not crush, chew, or split. 180 each 1 01/26/2025 6 pioglitazone (Actos) 30 mg tablet Take 1 tablet (30 mg total) by mouth 1 (one) time each day. 30 each 01/26/2025 5 levothyroxine (SYNTHROID, LEVOTHROID) 150 mcg tablet Take 1 tablet (150 mcg total) by mouth 1 (one) time each day. 30 each 11 01/26/2025 5 documented in this encounter Plan of Treatment Upcoming Encounters Date Type Department Care Team (Late st Contact Info) Description 07/28/2025 1:45 PM EDT Office Visit Internal Medicine - [address] [place] [address] Adán Renee MD [address] [place] [phone] Scheduled Orders Name Type Priority Associated Diagnoses Orde r Schedule Hemoglobin A1c Lab Routine Type 2 diabetes mellitus without complication, without long-term current use of insulin ([facility] V24, [facility] V28) Expected: 04/27/2025, Expires: 01/26/2026 Thyroid stimulating hormone with reflex to free t4 and free t3 Lab Routine Hypothyroidism, unspecified type 1 Occurrences starting 01/26/2025 until 01/26/2026 documented as of this encounter Visit Diagnoses Diagnosis Hypothyroidism, unspecified type- Primary Type 2 diabetes mellitus without complication, without long-term current use of insulin ([facility] V24, [facility] V28) documented in this encounter Discontinued Medications Medication Sig Discontinue Reason Start Date End Da te levothyroxine (SYNTHROID, LEVOTHROID) 125 mcg tablet Take 1 tablet (125 mcg total) by mouth 1 (one) time each day. Dose adjustment 11/27/2024 01/26/2025 metFORMIN XR (GLUCOPHAGE-XR) 500 mg 24 hr tabletIndications:Type 2 diabetes mellitus without complication, without long-term current use of insulin ([facility] V24, [facility] V28) TAKE 1 TABLET (500 MG TOTAL) BY MOUTH TWICE A DAY DO NOT CRUSH, CHEW, OR SPLIT Reorder 01/06/2025 01/26/2025 documented as of this encounter Additional Health Concerns Assessment Noted Time PHQ-9 Depression Total Score: 6 01/20/20 25 1:59 PM EDT documented as of this encounter Care Teams Secretary Specialist Relationship Specialty Start Date End Date Adán Renee MD [address] [place] [phone] PCP - General 01/02/24 documented as of this encounter
== END 2025-03-04 08:19 | disposition home or self-care (01) ==
LOC: HO.LAB 08:18
PROVIDERS: PCP Student in an Organized Health Care Education/Training Program; Visit Provider Psychiatry & Neurology Psychiatry
DX: Z79.899 Other long term (current) drug therapy (principal)
CPT/HCPCS: 36415; 80164